=== PATIENT | male | born 1960 | race American Indian/Alaskan Native ===

== ENCOUNTER 2018-02-04 15:15 | Inpatient (IN) | payer MEDICARE, OTHER ==
[2018-02-04] MEDS ORDERED: Multivitamin (MVI) 10 ML, Folic Acid 1 MG, Thiamine 100 MG in Dextrose 5%/0.45% NS 1,00... IV ONE ×2 (15:30→15:45)
--- NOTE | 2018-02-04 15:38 | ED PDOC ---
HPI: Seizure Time Seen by Provider: 02/04/18 15:23 Chief Complaint (Nursing): Seizure Chief Complaint (Provider): seizure History Per: Patient, Family History/Exam Limitations: no limitations Additional Complaint(s): Pt. is an alcoholic and drinks everyday. Last drink 4 days ago (pt. stopped because family in the hospital). Pt. seen having seizure in the hallway of his apartment. Unclear how long it lasted. Pt. found post-ictal per ems. Pt. communicating fully when evaluated in ER. Pt. denies any pain, weakness, dizziness, headaches, neck pain, dyspnea, chest pain, arm/leg pain. Pt. does not remember seizure. Pt. has no loose teeth or tongue laceration. Pt. denies any drugs. No nausea, vomit, diarrhea. States he takes meds for his htn, but does not know what it is. Family at bedside giving further details. Past Medical History Reviewed: Nursing Documentation, Vital Signs Vital Signs: Last Vital Signs Temp 98.1 F 02/04/18 15:18 Pulse 104 H 02/04/18 15:18 Resp 18 02/04/18 15:18 BP 147/97 H 02/04/18 15:18 Pulse Ox 100 02/04/18 19:20 - Medical History PMH: HTN Other PMH: alcoholic withdrawal sz - Family History Family History: States: Unknown Family Hx - Living Arrangements Living Arrangements: Alone - Social History Current smoker - smoking cessation education provided: Yes Alcohol: > 2 Drinks/Day - Home Medications Home Medications: Ambulatory Orders Medication Instructions Recorded Albuterol Sulfate [Proair Hfa] 2 puff IH Q8 PRN 02/04/18 Ergocalciferol (Vitamin D2) 50,000 unit PO QWK 02/04/18 [Vitamin D2] Fluticasone Nasal [Flonase] 1 spray PAOLA BID PRN 02/04/18 Levocetirizine Dihydrochloride 5 mg PO Q12 02/04/18 [Xyzal] Losartan/Hydrochlorothiazide 1 tab PO DAILY 02/04/18 [Hyzaar 100-25 Tablet] Memantine [Namenda] 10 mg PO Q12 02/04/18 Metoprolol Succinate [Toprol XL] 25 mg PO DAILY 02/04/18 Rosuvastatin Calcium [Crestor] 10 mg PO DAILY 02/04/18 amLODIPine [Norvasc] 10 mg PO DAILY 02/04/18 - Allergies Allergies/Adverse Reactions: Allergies Allergy/AdvReac Type Severity Reaction Status Date / Time No Known Allergies Allergy Verified 02/04/18 15:17 Review of Systems ROS Statement: Except As Marked, All Systems Reviewed And Found Negative Neurological: Positive for: Seizures Physical Exam - Reviewed Nursing Documentation Reviewed: Yes Vital Signs Reviewed: Yes - Physical Exam Appears: Positive for: Uncomfortable Head Exam: Positive for: ATRAUMATIC, NORMAL INSPECTION, NORMOCEPHALIC Skin: Positive for: Normal Color, Warm, DRY Eye Exam: Positive for: EOMI, Normal appearance, PERRL ENT: Positive for: Normal ENT Inspection, Other (no tongue laceration) Neck: Positive for: Normal, Painless ROM Cardiovascular/Chest: Positive for: Regular Rate, Rhythm Respiratory: Positive for: CNT, Normal Breath Sounds Gastrointestinal/Abdominal: Positive for: Normal Exam, Bowel Sounds, Soft. Negative for: Tenderness Back: Positive for: Normal Inspection. Negative for: L CVA Tenderness, R CVA Tenderness Extremity: Positive for: Normal ROM. Negative for: Tenderness, Pedal Edema Neurologic/Psych: Positive for: Alert, site project manager II-XII, Oriented. Negative for: Motor/Sensory Deficits - Laboratory Results Result Diagrams: 02/04/18 17:50 02/04/18 17:50 Interpretation Of Abn Labs: 125 na, 2.9 k - ECG O2 Sat by Pulse Oximetry: 100 Pulse Ox Interpretation: Normal - Radiology X-Ray: Read By Radiologist X-Ray Interpretation: Fracture ( 5-8 ribs) - CT Scan/US ct Other Rad Studies (CT/US): Read By Radiologist Other Rad Interpretation: sinusitis - Progress ED Course And Treament: 1918: Stable. Will ct chest to r/o pneumo as pt. has rib fx. 2057: Stable. Will admit tele. Deconditioning, electrolyte abnormalities, withdrawal. Dr. Freitas aware and will admit. - Critical Care Total Time (In Min): 30 Documented Critical Care: Time excludes all time spent performint seperately billable procedures Disposition - Clinical Impression Clinical Impression: Alcohol withdrawal seizure, Electrolyte abnormality, Physical deconditioning, Sinusitis, Rib fractures - Patient ED Disposition Is Patient to be Admitted: Yes Counseled Patient/Family Regarding: Studies Performed, Diagnosis - Disposition Disposition Time: 21:14 Condition: FAIR - POA Present On Arrival: Falls Or Trauma
--- NOTE | 2018-02-04 16:45 | CT ---
PROCEDURE: CT HEAD WITHOUT CONTRAST. HISTORY: headache COMPARISON: 08/03/2015 TECHNIQUE: Axial computed tomography images were obtained through the head/brain without intravenous contrast. Radiation dose: Total exam DLP = 851 mGy-cm. This CT exam was performed using one or more of the following dose reduction techniques: Automated exposure control, adjustment of the mA and/or kV according to patient size, and/or use of iterative reconstruction technique. FINDINGS: HEMORRHAGE: No intracranial hemorrhage. BRAIN: No mass effect or edema. Prior cerebral atrophy and chronic appearing microvascular ischemic changes. -similar-appearing VENTRICLES: No hydrocephalus. Cavum septum pellucidum-developmental variant - renoted CALVARIUM: Unremarkable. PARANASAL SINUSES: Interval increased mucosal thickening ethmoidal air cells bilateral. Interval increased mucosal thickening with fluid level right larger sphenoid air cell. The prior maxillary sinus mucosal thickening is not visually included on this exam to comment on. MASTOID AIR CELLS: Right mastoid postop changes similar The left mastoid air cells are unremarkable OTHER FINDINGS: Vertebrobasilar Atherosclerotic vascular calcifications present. IMPRESSION: Interval progressive paranasal sinus inflammatory changes. Interval air-fluid level right larger sphenoid air cell compatible with acute sphenoid sinusitis here. Cerebral atrophy and other chronic changes as above are renoted and similar No interval intracranial hemorrhage or mass effect.
--- NOTE | 2018-02-04 17:06 | CT ---
PROCEDURE: CT Cervical Spine without contrast HISTORY: Neck pain COMPARISON: None available. TECHNIQUE: Axial computed tomography images were obtained of the cervical spine without the use of intravenous contrast. Coronal and sagittal reformatted images were created and reviewed. Radiation dose: Total exam DLP = 470.66 MGy-cm. This CT exam was performed using one or more of the following dose reduction techniques: Automated exposure control, adjustment of the mA and/or kV according to patient size, and/or use of iterative reconstruction technique. FINDINGS: VERTEBRAE: The vertebral bodies are maintained in height. There is no acute fracture. Normal alignment is maintained. There is mild diffuse sclerosis of the C3 through C7 vertebrae, of uncertain significance. DISCS/SPINAL CANAL/NEURAL FORAMINA: There is marked narrowing of the C3-4 through C7-T1 intervertebral disc spaces consistent with degenerative disc disease. Multiple small Schmorl's nodes are identified. PARASPINAL SOFT TISSUES: Centrilobular pulmonary emphysema noted in the lung apices. Small subpleural blebs are identified. OTHER FINDINGS: None. IMPRESSION: Multilevel degenerative disc disease. No evidence of fracture or dislocation. Mild sclerosis of the C3 through C7 vertebral bodies of uncertain significance, possibly related to the extensive degenerative disc disease. Centrilobular pulmonary emphysema noted in the lung apices.
[2018-02-04 18:02] LABS: ALB/GLOB RATIO 0.8 (1.0-2.1); ALBUMIN 3.2 g/dL (3.5-5.0); ALT/SGPT 39 U/L (21-72); AST/SGOT 51 U/L (17-59); BLOOD UREA NITROGEN 10 mg/dl (9-20); CALCIUM 8.3 mg/dL (8.4-10.2); GFR AFRICAN-AMERICAN > 60; GFR NON-AFRICAN AMERICAN > 60
[2018-02-04 18:04] LABS: BASO # 0.1 K/uL (0.0-0.2); BASO % 0.6 % (0.0-2.0); EOS # 0.1 K/uL (0.0-0.7); EOS % 0.6 % (0.0-4.0); HEMOGLOBIN 10.7 g/dL (12.0-18.0); LYMPH # 0.9 K/uL (1.0-4.3); LYMPH % 9.4 % (20.0-40.0); MEAN CELL VOLUME 89.5 fl (80.0-94.0); MEAN CORPUSCULAR HEMOGLOBIN 30.8 pg (27.0-31.0); MEAN CORPUSCULAR HGB CONC 34.4 g/dL (33.0-37.0); MEAN PLATELET VOLUME 7.6 fl (7.2-11.7); MONO # 0.4 K/uL (0.0-0.8); MONO % 4.8 % (0.0-10.0); NEUT # 7.9 K/uL (1.8-7.0); NEUT % 84.6 % (50.0-75.0); NRBC % 0.1 % (0.0-0.0); PLATELET COUNT 171 K/uL (130-400); RBC 3.49 Mil/uL (4.40-5.90); RED CELL DISTRIBUTION WIDTH 15.3 % (11.5-14.5); WHITE BLOOD COUNT 9.4 K/uL (4.8-10.8)
[2018-02-04 18:09] LABS: INR 1.1 (0.9-1.2); PARTIAL THROMBOPLASTIN TIME 27.5 Seconds (25.6-37.1); PROTHROMBIN TIME 11.9 Seconds (9.8-13.1)
--- NOTE | 2018-02-04 18:27 | RAD ---
HISTORY: fall COMPARISON: 09/27/2016 FINDINGS: LUNGS: No active pulmonary disease. PLEURA: No significant pleural effusion identified, no pneumothorax apparent. CARDIOVASCULAR: Normal. OSSEOUS STRUCTURES: Fractures right 5th through 8th ribs, age indeterminate. Productive bony change likely arising from acromion along inferior aspect. Likely posttraumatic. VISUALIZED UPPER ABDOMEN: Normal. OTHER FINDINGS: None. IMPRESSION: Fractures right 5th through 8th ribs posteriorly, age indeterminate.
[2018-02-04] MEDS ORDERED: Tmp-Smz 800 mg-160 mg DS Tab PO STA (19:14)
[2018-02-04] MEDS ORDERED: Potassium Chloride 20 mEq ER Tab PO STA (19:18)
[2018-02-04] MEDS ORDERED: Tmp-Smz 800 mg-160 mg DS Tab ONE (19:56)
[2018-02-04] MEDS ORDERED: Potassium Chloride 20 mEq ER Tab PO ONE (19:57)
[2018-02-04 20:40] LABS: VENOUS BLOOD GAS BASE EXCESS 0.8 mmol/L (0.0-2.0); VENOUS BLOOD GAS PCO2 39 mmHg (40-60); VENOUS BLOOD GAS PO2 23 mm/Hg (30-55); VENOUS BLOOD PH 7.42 (7.32-7.43)
[2018-02-04 21:27] LABS: BANDS 2 % (0-2); EOSINOPHIL 1 % (0-7); LYMPHOCYTE 10 % (20-50); MONOCYTE 4 % (0-10); NEUTROPHIL 83 % (42-75); PLATELET ESTIMATE NORMAL (NORMAL); TOTAL CELLS COUNTED 100
[2018-02-04 21:28] LABS: ANISOCYTOSIS MODERATE; HYPOCHROMIC SLIGHT; OVALOCYTES SLIGHT; POIKILOCYTOSIS SLIGHT; POLYCHROMIC SLIGHT; SMUDGE CELLS PRESENT
[2018-02-04] MEDS ORDERED: [UNRECOGNIZED DRUG - OTHER] IV ONE (21:47)
[2018-02-04] MEDS ORDERED: MAGNESIUM SULFATE IV ONE (21:47)
[2018-02-04] MEDS ORDERED: THIAMINE IV ONE (21:47)
[2018-02-04] MEDS ORDERED: FOLIC ACID IV ONE (21:47)
[2018-02-04] MEDS ORDERED: MULTIVITAMIN IV ONE (21:47)
--- NOTE | 2018-02-04 21:54 | CP.PCM.HP ---
History of Present Illness - History of Present Illness History of Present Illness: CC: seizure, EtOH abuse HPI: This is a 58 y/o male with MHx sig for EtOH abuse, HTN, and HLD who was brought in to the ER today after he was noted to be having seizures in the hallway of his apartment. Found in post-ictal state by EMS. Patient himself denies having seizures -- does not remember at all. Patient had his last drink about 4 days ago. Denies any other symptoms currently -- no CP, SOB, focal weakness. Patient denies ingestion of any other substances besides EtOH. ROS: 14 systems reviewed, negative other than HPI MHx: HTN, HLD, EtOH abuse SHx: None Allergies: NKDA Medications: As per med rec Family Hx: patient cannot provide any Social Hx: Lives in apartment with family? Heavy daily EtOH use -- 5+ drinks often daily, no tobacco Present on Admission - Present on Admission Any Indicators Present on Admission: No Past Patient History - Infectious Disease Hx of Infectious Diseases: None - Tetanus Immunizations Tetanus Immunization: Unknown - Past Medical History & Family History Past Medical History?: Yes - Past Social History Alcohol: > 2 Drinks/Day - CARDIAC Hx Hypertension: Yes - ENDOCRINE/METABOLIC Hx Endocrine Disorders: Yes Hx Diabetes Mellitus Type 2: Yes - MUSCULOSKELETAL/RHEUMATOLOGICAL Hx Falls: Yes - PSYCHIATRIC Hx Substance Use: No - SURGICAL HISTORY Hx Surgeries: Yes Other/Comment: Patient was unable to specify which surgeries he has had, but he said that he has had at least 7. - ANESTHESIA Hx Anesthesia: Yes Meds Allergies/Adverse Reactions: Allergies Allergy/AdvReac Type Severity Reaction Status Date / Time No Known Allergies Allergy Verified 02/04/18 15:17 Physical Exam - Constitutional Appears: No Acute Distress - Head Exam Head Exam: ATRAUMATIC, NORMOCEPHALIC - Eye Exam Eye Exam: EOMI, PERRL - ENT Exam ENT Exam: Mucous Membranes Dry - Respiratory Exam Respiratory Exam: Clear to Auscultation Bilateral, NORMAL BREATHING PATTERN - Cardiovascular Exam Cardiovascular Exam: REGULAR RHYTHM, +S1, +S2 - GI/Abdominal Exam GI & Abdominal Exam: Normal Bowel Sounds, Soft - Extremities Exam Extremities exam: Positive for: full ROM, normal inspection - Neurological Exam Neurological exam: Alert, CN II-XII Intact, Oriented x3 - Psychiatric Exam Psychiatric exam: Normal Affect, Normal Mood - Skin Skin Exam: Dry, Warm Results - Vital Signs Recent Vital Signs: Last Vital Signs Temp 98.1 F 02/04/18 15:18 Pulse 104 H 02/04/18 15:18 Resp 18 02/04/18 15:18 BP 147/97 H 02/04/18 15:18 Pulse Ox 100 02/04/18 21:13 - Labs Result Diagrams: 02/04/18 17:50 02/04/18 17:50 Labs: Laboratory Results - last 24 hr 02/04/18 02/04/18 02/04/18 15:43 17:50 17:50 WBC 9.4 RBC 3.49 L Hgb 10.7 L Hct 31.2 L MCV 89.5 D MCH 30.8 MCHC 34.4 RDW 15.3 H Plt Count 171 D MPV 7.6 Neut % (Auto) 84.6 H Lymph % (Auto) 9.4 L Rolette % (Auto) 4.8 Eos % (Auto) 0.6 Baso % (Auto) 0.6 Neut # (Auto) 7.9 H Lymph # (Auto) 0.9 L Rolette # (Auto) 0.4 Eos # (Auto) 0.1 Baso # (Auto) 0.1 Neutrophils % (Manual) 83 H Band Neutrophils % 2 Lymphocytes % (Manual) 10 L Monocytes % (Manual) 4 Eosinophils % (Manual) 1 Smudge Cells Present Platelet Estimate Normal Polychromasia Slight Hypochromasia (manual) Slight Poikilocytosis (manual Slight Anisocytosis (manual) Moderate Ovalocytes Slight PT INR APTT pO2 VBG pH VBG pCO2 VBG HCO3 VBG Total CO2 VBG O2 Sat (Calc) VBG Base Excess VBG Potassium Glucose Lactate FiO2 Sodium 125 L Potassium 2.9 L Chloride 94 L Carbon Dioxide 20 L Anion Gap 14 BUN 10 Creatinine 0.8 Est GFR ( Amer) > 60 Est GFR (Non-Af Amer) > 60 POC Glucose (mg/dL) 101 Random Glucose 183 H Calcium 8.3 L Phosphorus 3.3 Magnesium 1.4 L Total Bilirubin 0.8 AST 51 ALT 39 Alkaline Phosphatase 63 Troponin I < 0.0120 Total Protein 7.3 Albumin 3.2 L Globulin 4.1 H Albumin/Globulin Ratio 0.8 L Venous Blood Potassium Alcohol, Quantitative < 10 02/04/18 02/04/18 17:50 20:31 WBC RBC Hgb Hct MCV MCH MCHC RDW Plt Count MPV Neut % (Auto) Lymph % (Auto) Rolette % (Auto) Eos % (Auto) Baso % (Auto) Neut # (Auto) Lymph # (Auto) Rolette # (Auto) Eos # (Auto) Baso # (Auto) Neutrophils % (Manual) Band Neutrophils % Lymphocytes % (Manual) Monocytes % (Manual) Eosinophils % (Manual) Smudge Cells Platelet Estimate Polychromasia Hypochromasia (manual) Poikilocytosis (manual Anisocytosis (manual) Ovalocytes PT 11.9 INR 1.1 APTT 27.5 pO2 23 L VBG pH 7.42 VBG pCO2 39 L VBG HCO3 24.3 VBG Total CO2 26.5 VBG O2 Sat (Calc) 45.1 VBG Base Excess 0.8 VBG Potassium 3.6 Glucose 104 Lactate 2.1 FiO2 21.0 Sodium 121.0 L Potassium Chloride 94.0 L Carbon Dioxide Anion Gap BUN Creatinine Est GFR ( Amer) Est GFR (Non-Af Amer) POC Glucose (mg/dL) Random Glucose Calcium Phosphorus Magnesium Total Bilirubin AST ALT Alkaline Phosphatase Troponin I Total Protein Albumin Globulin Albumin/Globulin Ratio Venous Blood Potassium 3.6 Alcohol, Quantitative - EKG Data EKG Interpreted by: Myself EKG shows normal: Sinus rhythm Rate: Normal - Impressions Impression: EKG shows NSR Assessment & Plan (1) Alcohol withdrawal seizure Assessment and Plan: 58 y/o male with EtOH withdrawal seizures and hyponatremia likely 2/2 EtOH intake, possibly exacerbated by volume depletion/diuretics. 1) EtOH w/d seizures -Banana bag -Ativan 2 mg q6h PRN seizures -Will start a librium taper 2) Hyponatremia -- may be 2/2 chronic EtOH intake/poor nutrition, but maybe worsened by vol dep/diuretics -Serum and urine Osms and lytes ordered -Hydrating overnight -Repeat BMP in AM -Holding diuretics 3) Pancreas mass per CT -- will need further w/u for this likely, but can be done as outpatient 4) HTN -- cont home medications except diuretics 5) DVT PPx -- SCDs and ambulation Status: Acute (2) Volume depletion Status: Acute (3) Hyponatremia Status: Acute (4) Mass of pancreas Status: Acute (5) DVT prophylaxis Status: Acute
--- NOTE | 2018-02-04 22:16 | CT ---
EXAM: CT Chest Without Intravenous Contrast CLINICAL HISTORY: 58 years old, male; Pain; Other: FX ribs; Additional info: Seizure FX in ribs TECHNIQUE: Axial computed tomography images of the chest without intravenous contrast. All CT scans at this facility use one or more dose reduction techniques, viz.: automated exposure control; ma/kV adjustment per patient size (including targeted exams where dose is matched to indication; i.e. head); or iterative reconstruction technique. Coronal and sagittal reformatted images were created and reviewed. COMPARISON: CR - CHEST PORTABLE 2018-02-04 16:48 FINDINGS: Limitations: Lack of intravenous contrast. Lungs: Moderate centrilobular/paraseptal emphysematous changes. Minimal atelectasis/scarring. No consolidation. 0.2 cm RIGHT upper lobe nodule. Pleural space: No pneumothorax. No significant effusion. Heart: No cardiomegaly. No significant pericardial effusion. Coronary artery calcifications. Mediastinum: Mild mural thickening vs underdistention of esophagus. Bones/joints: Chronic deformity right distal clavicle. Healed left sixth; right fifth, sixth, seventh, eighth, ninth, tenth, eleventh, twelth ribs. Healing left ninth, tenth ribs. Moderate compression deformity T8 vertebral body, subacute to chronic. Mild compression deformity T10 vertebral body, chronic. Hemangioma within spine. Soft tissues: Unremarkable. Vasculature: Mild atherosclerotic disease. No aneurysm. Lymph nodes: No pathologically enlarged lymph nodes. Pancreas: 8.9 x 8.6 x 8.7 cm hypodense lesion with mildly thickened irregular wall contiguous with tail of pancreas. IMPRESSION: 1. Healing/healed rib fractures. 2. Pancreatic lesion, indeterminate. Recommend MRI. 3. Mural thickening versus underdistention of esophagus. Clinical correlation is needed. 4. Pulmonary nodule. For low-risk patients, no follow-up is necessary. For high-risk patients (smoking history or other known risk factors) an optional CT at 12 months could be performed. 5. Incidental/non-acute findings are described above.
[2018-02-04 22:55] LABS: BARBITURATES, UR NEGATIVE (NEGATIVE); BENZODIAZEPINES, UR NEGATIVE (NEGATIVE); OPIATES, UR NEGATIVE (NEGATIVE); PHENCYCLIDINE, UR NEGATIVE (NEGATIVE)
[2018-02-04] MEDS ORDERED: Albuterol HFA 90 mcg/actuation (8 g) IH PRN (23:06)
[2018-02-05 06:04] LABS: BLOOD UREA NITROGEN 8 mg/dl (9-20); CALCIUM 8.6 mg/dL (8.4-10.2); GFR AFRICAN-AMERICAN > 60; GFR NON-AFRICAN AMERICAN > 60
[2018-02-05 06:12] LABS: HEMOGLOBIN 11.3 g/dL (12.0-18.0); MEAN CELL VOLUME 90.5 fl (80.0-94.0); MEAN CORPUSCULAR HEMOGLOBIN 30.8 pg (27.0-31.0); MEAN CORPUSCULAR HGB CONC 34.1 g/dL (33.0-37.0); RBC 3.66 Mil/uL (4.40-5.90); RED CELL DISTRIBUTION WIDTH 15.9 % (11.5-14.5); WHITE BLOOD COUNT 8.5 K/uL (4.8-10.8)
--- NOTE | 2018-02-05 08:27 | CP.PCM.PN ---
Subjective - Date & Time of Evaluation Date of Evaluation: 02/05/18 Time of Evaluation: 08:27 - Subjective Subjective: pt awake, alert, oriented to person, and grossly to place and time likely still mildly lethargic from librium. according to sister, patient is usually aaox3,and sharp. no complaints at this time hd stbale nad Objective - Vital Signs/Intake and Output Vital Signs (last 24 hours): Temp Pulse Resp BP Pulse Ox 98.2 F 68 18 148/92 H 100 02/05/18 08:00 02/05/18 08:00 02/05/18 08:00 02/05/18 08:00 02/05/18 08:00 Vitals Reviewed GEN: WDWN, alert, cooperative HEENT: NCAT, PERRL, EOMI HEART: RRR, +S1S2, NO MRG LUNG: CTAB, NO WRR ABD: soft, NT, ND, No HSM, No masses EXT: normal pedal pulses, normal capillary refill NEURO: awake, alert, no focal deficits SKIN: warm, dry PSYCH: normal mood, normal affect - Medications Medications: Current Medications Albuterol (Ventolin Hfa 90 Mcg/Actuation (8 G)) 2 puff IH Q8 PRN PRN Reason: Shortness of Breath Amlodipine Besylate (Norvasc) 10 mg PO DAILY WILFREDO Atorvastatin Calcium (Lipitor) 10 mg PO DAILY WILFREDO Chlordiazepoxide (Librium) 50 mg PO Q8 WILFREDO Fluticasone Propionate (Flonase) 1 spr PAOLA BID PRN PRN Reason: Nasal congestion Loratadine (Claritin) 10 mg PO DAILY WILFREDO Lorazepam (Ativan) 2 mg IVP Q6 PRN PRN Reason: seizures Lorazepam (Ativan) 1 mg IVP Q6 PRN PRN Reason: anxiety, agitation Last Admin: 02/05/18 05:00 Dose: 1 mg Memantine (Namenda) 10 mg PO Q12 WILFREDO Metoprolol Succinate (Toprol Xl) 25 mg PO DAILY WILFREDO Ondansetron HCl (Zofran Inj) 4 mg IVP Q6 PRN PRN Reason: Nausea/Vomiting - Labs Labs: 02/05/18 04:29 02/05/18 04:29 PT 11.9 Seconds (9.8-13.1) 02/04/18 17:50 INR 1.1 (0.9-1.2) 02/04/18 17:50 APTT 27.5 Seconds (25.6-37.1) 02/04/18 17:50 Assessment and Plan - Assessment and Plan (Free Text) Plan: 58 y/o male with MHx sig for EtOH abuse, HTN, and HLD who was brought in to the ER today he was noted to be having seizures in the hallway of his apartment. Found in post-ictal state by EMS. Patient himself denies having seizures, states he just felt tired. Patient had his last drink about 4-7 days ago when his brother was admitted to the hospital in [place]. Patient denies ingestion of any other substances besides EtOH. 1) EtOH with possible withdrawal seizure - pt states he just felt tired and laid down in hallway, he denies having any seizures - Banana bag given - taper PRN Ativan to 1 mg BID PO PRN withdrawal as patient last drink was likely 5-7 days ago - discontinue librium - folic acid, thiamine, mvi daily 2) Hyponatremia -- may be 2/2 chronic EtOH intake/poor nutrition, but maybe worsened by vol dep/diuretics -Serum and urine Osms and lytes ordered -Hydrating overnight -Repeat BMP in AM -Holding diuretics 3) Pancreas mass per CT -- will need further w/u as outpatient 4) HTN -- cont home medications except diuretics 5) DVT PPx -- SCDs and ambulation
[2018-02-05] MEDS: Metoprolol Succinate 25 mg XL Tab PO SCH (08:44)
[2018-02-05 09:45] LABS: URINE BILIRUBIN NEGATIVE (NEGATIVE); URINE BLOOD NEGATIVE (NEGATIVE); URINE CLARITY CLEAR (Clear); URINE COLOR YELLOW (YELLOW); URINE GLUCOSE (UA) NEG (Normal); URINE LEUKOCYTE ESTERASE NEG Leu/uL (Negative); URINE PROTEIN NEGATIVE (NEGATIVE)
[2018-02-05] MEDS: Multivitamin With Minerals Tab PO SCH (15:21)
--- NOTE | 2018-02-05 18:35 | CARD ---
APPROVED REPORT EKG Measurement Heart [id number] <Conclusion> Sinus rhythm with premature atrial complexes Otherwise normal ECG
[2018-02-05] MEDS ORDERED: Sodium Chloride 0.9% 1,000 ML IV SCH (19:15)
[2018-02-05 19:41] LABS: BASO % 0.5 % (0.0-2.0); EOS # 0.2 K/uL (0.0-0.7); EOS % 2.1 % (0.0-4.0); HEMOGLOBIN 11.2 g/dL (12.0-18.0); LYMPH # 0.9 K/uL (1.0-4.3); LYMPH % 9.7 % (20.0-40.0); MEAN CORPUSCULAR HEMOGLOBIN 31.1 pg (27.0-31.0); MEAN CORPUSCULAR HGB CONC 34.2 g/dL (33.0-37.0); MEAN PLATELET VOLUME 7.7 fl (7.2-11.7); MONO # 0.7 K/uL (0.0-0.8); MONO % 7.7 % (0.0-10.0); NEUT # 7.1 K/uL (1.8-7.0); RBC 3.6 Mil/uL (4.40-5.90); RED CELL DISTRIBUTION WIDTH 15.6 % (11.5-14.5); WHITE BLOOD COUNT 8.9 K/uL (4.8-10.8)
--- NOTE | 2018-02-05 19:54 | PCM.RRT ---
I.Reason for LEAD PASTOR - A) Acute Change in Patient: (Select all that apply): Acute change in mental status Subjective: LEAD PASTOR Call Time: 19:03 LEAD PASTOR Arrival Time: 19:04 LEAD PASTOR Location: Telemetry 403-1 S: LEAD PASTOR was called by a RN on a 58 y/o M who had a syncope episode while having a bowel movement on a potty next to bed. Pt became lethargic and unresponsive. Nurse reported stools were dark and black. O: --Physical Exam: >GEN: Pt non-verbal, not responding to tactile stimulation. >HEENT: NC/AT, EOMI, PERRL. >Neck: good ROM. >CV: S1 and S2 present. >Lungs:CTAB >EXT: no cyanosis. No strenght b/l. LEAD PASTOR Interventions: -Pt was transferred immediately to bed. -Tactile stimulation was performed, pt began to become responsive after a few seconds. -Vitals signs: 124/74, HR 76, Sat O2 98%, 98.8 degF. -Pt became awake and responsive to word commands. -Medical records were reviewed. Hyponatremia was appreciated. -Normal Saline Solution 1 L at 150 mL/hr. -STAT CBC ordered. A/P 58 y/o M was admitted for evaluation of seizure-like episode, just had a syncopal episode most probably due to vasovagal cause. --F/U CBC for evaluation of possible blood loss. --Monitor VS, orthostatic BP. --Obervation. LEAD PASTOR ended: 19:13 LEAD PASTOR Leader: Kate Reddy-Hospitalist LEAD PASTOR Residents: Dr Velásquez PGY-2, Dr Frey PGY-1.
[2018-02-05] MEDS: Insulin Lispro (humaLOG) 100 Units/ml Inj SC SCH (21:37)
[2018-02-06 05:42] LABS: HEMOGLOBIN 11.2 g/dL (12.0-18.0); MEAN CELL VOLUME 91.6 fl (80.0-94.0); MEAN CORPUSCULAR HEMOGLOBIN 31.3 pg (27.0-31.0); MEAN CORPUSCULAR HGB CONC 34.2 g/dL (33.0-37.0); RBC 3.57 Mil/uL (4.40-5.90); RED CELL DISTRIBUTION WIDTH 15.8 % (11.5-14.5); WHITE BLOOD COUNT 9.3 K/uL (4.8-10.8)
[2018-02-06 06:31] LABS: BLOOD UREA NITROGEN 6 mg/dl (9-20); CALCIUM 8.4 mg/dL (8.4-10.2); GFR AFRICAN-AMERICAN > 60; GFR NON-AFRICAN AMERICAN > 60
[2018-02-06] MEDS: Insulin Lispro (humaLOG) 100 Units/ml Inj SC SCH ×4 (07:56→22:09)
[2018-02-06] MEDS: DiphenhydrAMINE 50 mg/ml Inj IVP SCH ×2 (08:53→17:41)
[2018-02-06] MEDS: Pantoprazole 40 mg EC Tab PO SCH (08:53)
[2018-02-06] MEDS: Multivitamin With Minerals Tab PO SCH (08:53)
[2018-02-06] MEDS: Metoprolol Succinate 25 mg XL Tab PO SCH (08:54)
[2018-02-06] MEDS ORDERED: Valproate 500 MG in Sodium Chloride 0.9% 100 ML IVPB SCH (09:00)
--- NOTE | 2018-02-06 10:00 | CP.PCM.PN ---
Subjective - Date & Time of Evaluation Date of Evaluation: 02/06/18 Time of Evaluation: 09:00 - Subjective Subjective: No fever had another episode of syncope vs seizure last night while in the bathroom denies JJ, no dizziness pt is alert, oriented follows commands denies CP no SOB no abd pain Objective - Vital Signs/Intake and Output Vital Signs (last 24 hours): Temp Pulse Resp BP Pulse Ox 97.3 F L 78 20 123/81 100 02/06/18 08:00 02/06/18 08:54 02/06/18 08:00 02/06/18 08:54 02/06/18 08:00 - Medications Medications: Current Medications Albuterol (Ventolin Hfa 90 Mcg/Actuation (8 G)) 2 puff IH Q8 PRN PRN Reason: Shortness of Breath Amlodipine Besylate (Norvasc) 10 mg PO DAILY [facility] Last Admin: 02/06/18 08:54 Dose: 10 mg Atorvastatin Calcium (Lipitor) 10 mg PO DAILY [facility] Last Admin: 02/06/18 08:53 Dose: 10 mg Chlordiazepoxide (Librium) 10 mg PO Q8 [facility] Last Admin: 02/06/18 08:53 Dose: 10 mg Diphenhydramine HCl (Benadryl) 50 mg IVP Q8 [facility] Last Admin: 02/06/18 08:53 Dose: 50 mg Fluticasone Propionate (Flonase) 1 spr PAOLA BID PRN PRN Reason: Nasal congestion Folic Acid (Folic Acid) 1 mg PO DAILY [facility] Last Admin: 02/06/18 08:54 Dose: 1 mg Sodium Chloride (Sodium Chloride 0.9%) 1,000 mls @ 150 mls/hr IV .Q6H40M [facility] Stop: 02/06/18 19:13 Last Admin: 02/05/18 19:00 Dose: 150 mls/hr Valproate Sodium 500 mg/ (Sodium Chloride) 105 mls @ 0 mls/hr IVPB Q12 [facility] PRN Reason: As Directed Insulin Human Lispro (Humalog) 0 units SC ACHS [facility] PRN Reason: Protocol Last Admin: 02/06/18 07:56 Dose: Not Given Lorazepam (Ativan) 1 mg PO BID PRN PRN Reason: withdrawal symptoms only Memantine (Namenda) 10 mg PO Q12 [facility] Last Admin: 02/06/18 08:54 Dose: 10 mg Metoprolol Succinate (Toprol Xl) 25 mg PO DAILY [facility] Last Admin: 02/06/18 08:54 Dose: 25 mg Multivitamins/Minerals (Therapeutic-M Tab) 1 tab PO DAILY [facility] Last Admin: 02/06/18 08:53 Dose: 1 tab Ondansetron HCl (Zofran Inj) 4 mg IVP Q6 PRN PRN Reason: Nausea/Vomiting Pantoprazole Sodium (Protonix Ec Tab) 40 mg PO DAILY [facility] Last Admin: 02/06/18 08:53 Dose: 40 mg Thiamine HCl (Vitamin B1 Tab) 100 mg PO DAILY [facility] Last Admin: 02/06/18 08:53 Dose: 100 mg - Labs Labs: 02/06/18 05:00 02/06/18 05:00 PT 11.9 Seconds (9.8-13.1) 02/04/18 17:50 INR 1.1 (0.9-1.2) 02/04/18 17:50 APTT 27.5 Seconds (25.6-37.1) 02/04/18 17:50 - Constitutional Appears: No Acute Distress, Unkempt, Older Than Stated Age, Chronically Ill - Head Exam Head Exam: NORMAL INSPECTION, NORMOCEPHALIC - Eye Exam Eye Exam: EOMI, Normal appearance Pupil Exam: NORMAL ACCOMODATION - ENT Exam ENT Exam: Mucous Membranes Moist, Normal External Ear Exam - Neck Exam Neck Exam: Full ROM. absent: Meningismus - Respiratory Exam Respiratory Exam: NORMAL BREATHING PATTERN. absent: Respiratory Distress - Cardiovascular Exam Cardiovascular Exam: REGULAR RHYTHM, +S1, +S2 - GI/Abdominal Exam GI & Abdominal Exam: Soft, Normal Bowel Sounds. absent: Tenderness - Extremities Exam Extremities Exam: Full ROM, Normal Capillary Refill. absent: Calf Tenderness, Pedal Edema - Back Exam Back Exam: Full ROM. absent: CVA tenderness (L), CVA tenderness (R), paraspinal tenderness, vertebral tenderness - Neurological Exam Neurological Exam: Alert, Awake, CN II-XII Intact Neuro motor strength exam: Left Upper Extremity: 5, Right Upper Extremity: 5, Left Lower Extremity: 5, Right Lower Extremity: 5 Additional comments: oriented to person and place - Psychiatric Exam Psychiatric exam: Flat Affect, Normal Mood - Skin Skin Exam: Dry, Normal Color, Warm Assessment and Plan - Assessment and Plan (Free Text) Assessment: 58 y/o male with PMHx significant for EtOH abuse, HTN, and HLD who was brought in to the ER after he was noted to be having seizures in the hallway of his apartment. Found in post-ictal state by EMS. Patient himself denies having seizures, states he just felt tired. Patient had his last drink about 5-7 days prior to admission. Patient denies ingestion of any other substances besides EtOH. In the hospital , patient had another episode of Syncope while in the bathroom last night. 1) Seizure possible EtOH withdrawal seizure - Neurology consulted - Pt started on Depakote - Ativan prn for seizure and withdrawal sxs - start Librium - folic acid, thiamine, mvi daily - CT of head: neg , CT of C spine : no fracture -EEG 2) Hyponatremia -- may be 2/2 chronic EtOH intake/poor nutrition, but maybe worsened by vol depletion/diuretics - IVF hydration -Holding diuretics 3) Pancreas mass per CT - GI consulted- discussed case with dr Bender - this may be a Pseudocyst- rec CT of abd (pancreatic protocol) 4) HTN cont Norvasc and Metoprolol d/c diuretics 5) DVT PPx -- SCDs and ambulation
--- NOTE | 2018-02-06 12:21 | CP.PCM.CON ---
<Ben Verma - Last Filed: 02/06/18 13:01> History of Present Illness - History of Present Illness History of Present Illness: PGY5 GI Fellow Consult Note Patient is a 58yo male with PMHx significant for EtOH abuse, HTN, dyslipidemia who presented to the ED after being found having a seizure in the hallway of his apartment complex. The patient himself denies seizures and states he was fatigued from significant amount of walking and fell. Per our EMR, the patient was noted to have seizure activity and was brought in for further evaluation. Patient was confused at first, suspected to be in a post-ictal state which has since resolved. Admits that he drinking 5+ beers daily for many years and his last drink was 4 days prior to admission. During admission, patient was noted to have clonic activity while on bedside commode and became less responsive. He was moved to his bed where he slowly recovered. Denies any history of seizure activity, neurologic conditions or alcohol withdrawal seizures. On initial work up, patient underwent CT chest and was noted to have a large cystic lesion in the tail of the pancreas. He denies prior knowledge of this lesion and cannot confirm/deny prior episodes of pancreatitis. Separately, patient was noted to be anemic and nursing noted dark stool. Patient denies this as well. PMHx: See HPI PSHx: Discussed with patient and denies prior history FHx: Discussed with patient and he denies any significant family history Social: Daily EtOH use, Daily tobacco use (1/2ppd), denies illicit drug use Endo: Admits to colonoscopy 2-3 years ago - unknown results 12 system ROS performed and negative except where stated. Past Patient History - Infectious Disease Hx of Infectious Diseases: None - Tetanus Immunizations Tetanus Immunization: Unknown - Past Medical History & Family History Past Medical History?: Yes - Past Social History Smoking Status: Light Smoker < 10 Cigarettes Daily - CARDIAC Hx Hypertension: Yes - ENDOCRINE/METABOLIC Hx Diabetes Mellitus Type 2: No (pt denied) - HEMATOLOGICAL/ONCOLOGICAL Hx AIDS: No Hx Human Immunodeficiency Virus (HIV): No - INTEGUMENTARY Hx Dermatological Problems: Yes - MUSCULOSKELETAL/RHEUMATOLOGICAL Hx Falls: Yes - PSYCHIATRIC Hx Substance Use: No - SURGICAL HISTORY Hx Surgeries: Yes Other/Comment: Patient was unable to specify which surgeries he has had, but he said that he has had at least 7. - ANESTHESIA Hx Anesthesia: Yes Meds Allergies/Adverse Reactions: Allergies Allergy/AdvReac Type Severity Reaction Status Date / Time No Known Allergies Allergy Verified 02/04/18 15:17 - Medications Medications: Current Medications Albuterol (Ventolin Hfa 90 Mcg/Actuation (8 G)) 2 puff IH Q8 PRN PRN Reason: Shortness of Breath Amlodipine Besylate (Norvasc) 10 mg PO DAILY [facility] Last Admin: 02/06/18 08:54 Dose: 10 mg Atorvastatin Calcium (Lipitor) 10 mg PO DAILY [facility] Last Admin: 02/06/18 08:53 Dose: 10 mg Chlordiazepoxide (Librium) 10 mg PO Q8 [facility] Last Admin: 02/06/18 08:53 Dose: 10 mg Diphenhydramine HCl (Benadryl) 50 mg IVP Q8 [facility] Last Admin: 02/06/18 08:53 Dose: 50 mg Fluticasone Propionate (Flonase) 1 spr PAOLA BID PRN PRN Reason: Nasal congestion Folic Acid (Folic Acid) 1 mg PO DAILY [facility] Last Admin: 02/06/18 08:54 Dose: 1 mg Sodium Chloride (Sodium Chloride 0.9%) 1,000 mls @ 150 mls/hr IV .Q6H40M [facility] Stop: 02/06/18 19:13 Last Admin: 02/05/18 19:00 Dose: 150 mls/hr Valproate Sodium 500 mg/ (Sodium Chloride) 105 mls @ 0 mls/hr IVPB Q12 [facility] PRN Reason: As Directed Last Admin: 02/06/18 10:26 Dose: 105 mls/hr Insulin Human Lispro (Humalog) 0 units SC ACHS [facility] PRN Reason: Protocol Last Admin: 02/06/18 07:56 Dose: Not Given Lorazepam (Ativan) 1 mg PO BID PRN PRN Reason: withdrawal symptoms only Memantine (Namenda) 10 mg PO Q12 [facility] Last Admin: 02/06/18 08:54 Dose: 10 mg Metoprolol Succinate (Toprol Xl) 25 mg PO DAILY [facility] Last Admin: 02/06/18 08:54 Dose: 25 mg Multivitamins/Minerals (Therapeutic-M Tab) 1 tab PO DAILY [facility] Last Admin: 02/06/18 08:53 Dose: 1 tab Ondansetron HCl (Zofran Inj) 4 mg IVP Q6 PRN PRN Reason: Nausea/Vomiting Pantoprazole Sodium (Protonix Ec Tab) 40 mg PO DAILY [facility] Last Admin: 02/06/18 08:53 Dose: 40 mg Thiamine HCl (Vitamin B1 Tab) 100 mg PO DAILY [facility] Last Admin: 02/06/18 08:53 Dose: 100 mg Physical Exam - Constitutional Appears: Non-toxic, No Acute Distress - Eye Exam Eye Exam: EOMI, PERRL - ENT Exam ENT Exam: Mucous Membranes Moist - Respiratory Exam Respiratory Exam: Clear to Auscultation Bilateral. absent: Rales, Rhonchi, Wheezes - Cardiovascular Exam Cardiovascular Exam: RRR, +S1, +S2 - GI/Abdominal Exam GI & Abdominal Exam: Normal Bowel Sounds, Soft. absent: Distended, Firm, Guarding, Organomegaly, Rigid, Tenderness - Rectal Exam Rectal Exam: Hemorrhoids (internal). absent: Black Stool, Bloody Stool - Extremities Exam Extremities exam: Positive for: normal inspection. Negative for: pedal edema - Neurological Exam Neurological exam: Alert, Oriented x3 - Psychiatric Exam Psychiatric exam: Normal Affect, Normal Mood - Skin Skin Exam: Dry, Warm Results - Vital Signs Recent Vital Signs: Last Vital Signs Temp 97.3 F L 02/06/18 08:00 Pulse 78 02/06/18 08:54 Resp 20 02/06/18 08:00 BP 123/81 02/06/18 08:54 Pulse Ox 100 02/06/18 08:00 - Labs Result Diagrams: 02/06/18 05:00 02/06/18 05:00 Labs: Laboratory Results - last 24 hr 02/05/18 02/05/18 02/05/18 11:18 17:26 19:25 WBC 8.9 RBC 3.60 L Hgb 11.2 L Hct 32.8 L MCV 91.0 MCH 31.1 H MCHC 34.2 RDW 15.6 H Plt Count 172 MPV 7.7 Neut % (Auto) 80.0 H Lymph % (Auto) 9.7 L [place] % (Auto) 7.7 Eos % (Auto) 2.1 Baso % (Auto) 0.5 Neut # (Auto) 7.1 H Lymph # (Auto) 0.9 L [place] # (Auto) 0.7 Eos # (Auto) 0.2 Baso # (Auto) 0.0 Sodium Potassium Chloride Carbon Dioxide Anion Gap BUN Creatinine Est GFR ( Amer) Est GFR (Non-Af Amer) POC Glucose (mg/dL) 107 97 Random Glucose Calcium Magnesium 02/05/18 02/05/18 02/06/18 19:26 20:53 05:00 WBC 9.3 RBC 3.57 L Hgb 11.2 L Hct 32.7 L MCV 91.6 MCH 31.3 H MCHC 34.2 RDW 15.8 H Plt Count 186 MPV Neut % (Auto) Lymph % (Auto) [place] % (Auto) Eos % (Auto) Baso % (Auto) Neut # (Auto) Lymph # (Auto) [place] # (Auto) Eos # (Auto) Baso # (Auto) Sodium Potassium Chloride Carbon Dioxide Anion Gap BUN Creatinine Est GFR ( Amer) Est GFR (Non-Af Amer) POC Glucose (mg/dL) 137 H 102 Random Glucose Calcium Magnesium 02/06/18 02/06/18 02/06/18 05:00 06:30 11:33 WBC RBC Hgb Hct MCV MCH MCHC RDW Plt Count MPV Neut % (Auto) Lymph % (Auto) [place] % (Auto) Eos % (Auto) Baso % (Auto) Neut # (Auto) Lymph # (Auto) [place] # (Auto) Eos # (Auto) Baso # (Auto) Sodium 130 L Potassium 3.6 Chloride 99 Carbon Dioxide 22 Anion Gap 13 BUN 6 L Creatinine 0.8 Est GFR ( Amer) > 60 Est GFR (Non-Af Amer) > 60 POC Glucose (mg/dL) 127 H 93 Random Glucose 103 Calcium 8.4 Magnesium 1.7 Assessment & Plan - Assessment and Plan (Free Text) Assessment: Patient is a 58yo male with PMHx significant for EtOH abuse, HTN, dyslipidemia who presented to the ED after being found having a seizure in the hallway of his apartment complex. -Seizure disorder - possible alcohol withdrawal seizure -Incidental finding of pancreatic tail lesion - suspect pseudocyst -Anemia -Internal hemorrhoids -EtOH abuse Plan: -Recommend dedicated pancreatic imaging with ct abdomen and pancreatic protocol -Suspect pseudocyst given appearance, history of EtOH abuse -No evidence of overt GI bleeding on rectal examination -Monitor CBC -Neurologic work up in progress -Encourage EtOH abstinence -Plan per findings on work up - Date & Time Date: 02/06/18 Time: 08:45 <Thiago Bender - Last Filed: 02/06/18 20:44> Meds - Medications Medications: Current Medications Albuterol (Ventolin Hfa 90 Mcg/Actuation (8 G)) 2 puff IH Q8 PRN PRN Reason: Shortness of Breath Amlodipine Besylate (Norvasc) 10 mg PO DAILY [facility] Last Admin: 02/06/18 08:54 Dose: 10 mg Atorvastatin Calcium (Lipitor) 10 mg PO DAILY [facility] Last Admin: 02/06/18 08:53 Dose: 10 mg Chlordiazepoxide (Librium) 10 mg PO Q8 [facility] Last Admin: 02/06/18 17:41 Dose: 10 mg Diphenhydramine HCl (Benadryl) 50 mg IVP Q8 [facility] Last Admin: 02/06/18 17:41 Dose: 50 mg Fluticasone Propionate (Flonase) 1 spr PAOLA BID PRN PRN Reason: Nasal congestion Folic Acid (Folic Acid) 1 mg PO DAILY [facility] Last Admin: 02/06/18 08:54 Dose: 1 mg Gabapentin (Neurontin) 300 mg PO TID [facility] Insulin Human Lispro (Humalog) 0 units SC ACHS [facility] PRN Reason: Protocol Last Admin: 02/06/18 17:35 Dose: Not Given Lorazepam (Ativan) 1 mg PO BID PRN PRN Reason: withdrawal symptoms only Memantine (Namenda) 10 mg PO Q12 [facility] Last Admin: 02/06/18 08:54 Dose: 10 mg Metoprolol Succinate (Toprol Xl) 25 mg PO DAILY [facility] Last Admin: 02/06/18 08:54 Dose: 25 mg Multivitamins/Minerals (Therapeutic-M Tab) 1 tab PO DAILY [facility] Last Admin: 02/06/18 08:53 Dose: 1 tab Ondansetron HCl (Zofran Inj) 4 mg IVP Q6 PRN PRN Reason: Nausea/Vomiting Pantoprazole Sodium (Protonix Ec Tab) 40 mg PO DAILY [facility] Last Admin: 02/06/18 08:53 Dose: 40 mg Thiamine HCl (Vitamin B1 Tab) 100 mg PO DAILY [facility] Last Admin: 02/06/18 08:53 Dose: 100 mg Results - Vital Signs Recent Vital Signs: Last Vital Signs Temp 97.1 F L 02/06/18 19:59 Pulse 88 02/06/18 19:59 Resp 18 02/06/18 19:59 BP 146/79 02/06/18 19:59 Pulse Ox 97 02/06/18 19:59 - Labs Result Diagrams: 02/06/18 05:00 02/06/18 05:00 Labs: Laboratory Results - last 24 hr 02/05/18 02/05/18 02/05/18 11:18 17:26 19:26 WBC RBC Hgb Hct MCV MCH MCHC RDW Plt Count Sodium Potassium Chloride Carbon Dioxide Anion Gap BUN Creatinine Est GFR ( Amer) Est GFR (Non-Af Amer) POC Glucose (mg/dL) 107 97 137 H Random Glucose Calcium Magnesium Stool Occult Blood 02/05/18 02/06/18 02/06/18 20:53 05:00 05:00 WBC 9.3 RBC 3.57 L Hgb 11.2 L Hct 32.7 L MCV 91.6 MCH 31.3 H MCHC 34.2 RDW 15.8 H Plt Count 186 Sodium 130 L Potassium 3.6 Chloride 99 Carbon Dioxide 22 Anion Gap 13 BUN 6 L Creatinine 0.8 Est GFR ( Amer) > 60 Est GFR (Non-Af Amer) > 60 POC Glucose (mg/dL) 102 Random Glucose 103 Calcium 8.4 Magnesium 1.7 Stool Occult Blood 02/06/18 02/06/18 02/06/18 06:30 10:44 11:33 WBC RBC Hgb Hct MCV MCH MCHC RDW Plt Count Sodium Potassium Chloride Carbon Dioxide Anion Gap BUN Creatinine Est GFR ( Amer) Est GFR (Non-Af Amer) POC Glucose (mg/dL) 127 H 93 Random Glucose Calcium Magnesium Stool Occult Blood Positive H Attending/Attestation - Attestation I have personally seen and examined this patient.: Yes I have fully participated in the care of the patient.: Yes I have reviewed all pertinent clinical information: Yes Notes (Text): 02/06/18 20:30 Patient seen with GI fellow on rounds this am. This is a 58 yr old male with PMHx significant for EtOH abuse, HTN, dyslipidemia who presented to the ED after being found having a seizure in the hallway of his apartment complex likely alcohol related. Incidental finding of pancreatic tail lesion with normal LFT and significant history of alcohol abuse. Patient denies past hospitalizations for pancreatitis or pseudocyst. CT with pancreatic protocol concerning for malignancy. Will discuss with poultry breeder regarding EUS- FNA. No s/s of obstruction. Tolerating solid meal diet. Continue current supportive care with alcohol cessation
--- NOTE | 2018-02-06 13:50 | CP.PCM.CON ---
History of Present Illness - History of Present Illness History of Present Illness: Mr. Lew is a 58-year-old man with HLD and alcholism, whose last drink was 5 days ago and was found in his hallway of his apartment having a generalized seizure that he does not recall. When I saw the patient at EEG, he was back to baseline. His EEG did not show any epileptiform activity. He had no complaints. Review of Systems - Review of Systems All systems: reviewed and no additional remarkable complaints except Past Patient History - Infectious Disease Hx of Infectious Diseases: None - Tetanus Immunizations Tetanus Immunization: Unknown - Past Medical History & Family History Past Medical History?: Yes - Past Social History Smoking Status: Light Smoker < 10 Cigarettes Daily - CARDIAC Hx Hypertension: Yes - ENDOCRINE/METABOLIC Hx Diabetes Mellitus Type 2: No (pt denied) - HEMATOLOGICAL/ONCOLOGICAL Hx AIDS: No Hx Human Immunodeficiency Virus (HIV): No - INTEGUMENTARY Hx Dermatological Problems: Yes - MUSCULOSKELETAL/RHEUMATOLOGICAL Hx Falls: Yes - PSYCHIATRIC Hx Substance Use: No - SURGICAL HISTORY Hx Surgeries: Yes Other/Comment: Patient was unable to specify which surgeries he has had, but he said that he has had at least 7. - ANESTHESIA Hx Anesthesia: Yes Meds Allergies/Adverse Reactions: Allergies Allergy/AdvReac Type Severity Reaction Status Date / Time No Known Allergies Allergy Verified 02/04/18 15:17 - Medications Medications: Current Medications Albuterol (Ventolin Hfa 90 Mcg/Actuation (8 G)) 2 puff IH Q8 PRN PRN Reason: Shortness of Breath Amlodipine Besylate (Norvasc) 10 mg PO DAILY [facility] Last Admin: 02/06/18 08:54 Dose: 10 mg Atorvastatin Calcium (Lipitor) 10 mg PO DAILY [facility] Last Admin: 02/06/18 08:53 Dose: 10 mg Chlordiazepoxide (Librium) 10 mg PO Q8 [facility] Last Admin: 02/06/18 08:53 Dose: 10 mg Diphenhydramine HCl (Benadryl) 50 mg IVP Q8 [facility] Last Admin: 02/06/18 08:53 Dose: 50 mg Fluticasone Propionate (Flonase) 1 spr PAOLA BID PRN PRN Reason: Nasal congestion Folic Acid (Folic Acid) 1 mg PO DAILY [facility] Last Admin: 02/06/18 08:54 Dose: 1 mg Sodium Chloride (Sodium Chloride 0.9%) 1,000 mls @ 150 mls/hr IV .Q6H40M [facility] Stop: 02/06/18 19:13 Last Admin: 02/05/18 19:00 Dose: 150 mls/hr Valproate Sodium 500 mg/ (Sodium Chloride) 105 mls @ 0 mls/hr IVPB Q12 [facility] PRN Reason: As Directed Last Admin: 02/06/18 10:26 Dose: 105 mls/hr Insulin Human Lispro (Humalog) 0 units SC ACHS [facility] PRN Reason: Protocol Last Admin: 02/06/18 07:56 Dose: Not Given Lorazepam (Ativan) 1 mg PO BID PRN PRN Reason: withdrawal symptoms only Memantine (Namenda) 10 mg PO Q12 [facility] Last Admin: 02/06/18 08:54 Dose: 10 mg Metoprolol Succinate (Toprol Xl) 25 mg PO DAILY [facility] Last Admin: 02/06/18 08:54 Dose: 25 mg Multivitamins/Minerals (Therapeutic-M Tab) 1 tab PO DAILY [facility] Last Admin: 02/06/18 08:53 Dose: 1 tab Ondansetron HCl (Zofran Inj) 4 mg IVP Q6 PRN PRN Reason: Nausea/Vomiting Pantoprazole Sodium (Protonix Ec Tab) 40 mg PO DAILY [facility] Last Admin: 02/06/18 08:53 Dose: 40 mg Thiamine HCl (Vitamin B1 Tab) 100 mg PO DAILY [facility] Last Admin: 02/06/18 08:53 Dose: 100 mg Physical Exam - Constitutional Appears: Well - Head Exam Head Exam: ATRAUMATIC, NORMAL INSPECTION, NORMOCEPHALIC - Eye Exam Eye Exam: EOMI, Normal appearance, PERRL - GI/Abdominal Exam GI & Abdominal Exam: Normal Bowel Sounds, Soft. absent: Tenderness - Rectal Exam Rectal Exam: Deferred - Back Exam Back exam: NORMAL INSPECTION - Neurological Exam Neurological exam: Alert, CN II-XII Intact, Normal Gait, Oriented x3, Reflexes Normal - Psychiatric Exam Psychiatric exam: Agitated Results - Vital Signs Recent Vital Signs: Last Vital Signs Temp 98.8 F 02/06/18 12:42 Pulse 85 02/06/18 12:42 Resp 20 02/06/18 12:42 BP 122/76 02/06/18 12:42 Pulse Ox 95 02/06/18 12:42 - Labs Result Diagrams: 02/06/18 05:00 02/06/18 05:00 Labs: Laboratory Results - last 24 hr 02/05/18 02/05/18 02/05/18 11:18 17:26 19:25 WBC 8.9 RBC 3.60 L Hgb 11.2 L Hct 32.8 L MCV 91.0 MCH 31.1 H MCHC 34.2 RDW 15.6 H Plt Count 172 MPV 7.7 Neut % (Auto) 80.0 H Lymph % (Auto) 9.7 L [place] % (Auto) 7.7 Eos % (Auto) 2.1 Baso % (Auto) 0.5 Neut # (Auto) 7.1 H Lymph # (Auto) 0.9 L [place] # (Auto) 0.7 Eos # (Auto) 0.2 Baso # (Auto) 0.0 Sodium Potassium Chloride Carbon Dioxide Anion Gap BUN Creatinine Est GFR ( Amer) Est GFR (Non-Af Amer) POC Glucose (mg/dL) 107 97 Random Glucose Calcium Magnesium 02/05/18 02/05/18 02/06/18 19:26 20:53 05:00 WBC 9.3 RBC 3.57 L Hgb 11.2 L Hct 32.7 L MCV 91.6 MCH 31.3 H MCHC 34.2 RDW 15.8 H Plt Count 186 MPV Neut % (Auto) Lymph % (Auto) [place] % (Auto) Eos % (Auto) Baso % (Auto) Neut # (Auto) Lymph # (Auto) [place] # (Auto) Eos # (Auto) Baso # (Auto) Sodium Potassium Chloride Carbon Dioxide Anion Gap BUN Creatinine Est GFR ( Amer) Est GFR (Non-Af Amer) POC Glucose (mg/dL) 137 H 102 Random Glucose Calcium Magnesium 02/06/18 02/06/18 02/06/18 05:00 06:30 11:33 WBC RBC Hgb Hct MCV MCH MCHC RDW Plt Count MPV Neut % (Auto) Lymph % (Auto) [place] % (Auto) Eos % (Auto) Baso % (Auto) Neut # (Auto) Lymph # (Auto) [place] # (Auto) Eos # (Auto) Baso # (Auto) Sodium 130 L Potassium 3.6 Chloride 99 Carbon Dioxide 22 Anion Gap 13 BUN 6 L Creatinine 0.8 Est GFR ( Amer) > 60 Est GFR (Non-Af Amer) > 60 POC Glucose (mg/dL) 127 H 93 Random Glucose 103 Calcium 8.4 Magnesium 1.7 Assessment & Plan (1) Alcohol withdrawal seizure Assessment and Plan: I recommend starting gabapentin for alcohol withdrawal seizures at 300 mg TID. Follow up with outpatient neurology. No further recommendations. Status: Acute Priority: High
[2018-02-06] MEDS ORDERED: Sodium Chloride 0.9% 100 ML ONE (13:53)
[2018-02-06] MEDS ORDERED: Iohexol 300 100 ML IJ ONE (13:53)
--- NOTE | 2018-02-06 16:24 | CT ---
PROCEDURE: CT Abdomen and Pelvis with contrast HISTORY: eval panc tail lesion COMPARISON: Upper abdomen sections from chest CT 02/04/2018. TECHNIQUE: Contrast dose: Omnipaque 300, 95 cc Radiation dose: Total exam DLP = 1028.28 mGy-cm. This CT exam was performed using one or more of the following dose reduction techniques: Automated exposure control, adjustment of the mA and/or kV according to patient size, and/or use of iterative reconstruction technique. FINDINGS: LOWER THORAX: Limited emphysematous changes are reiterated at the visualized bilateral lung bases which are otherwise grossly unremarkable. LIVER: Unremarkable. No gross lesion or ductal dilatation. GALLBLADDER AND BILE DUCTS: Unremarkable. PANCREAS: The tail the pancreas again harbors a large cyst with irregular peripheral margins measuring 8.3 x 8.6 by 8.5 cm (transverse by anteroposterior by superoinferior dimensions). No septation is identified however the wall exhibits fine nodular pattern. SPLEEN: Unremarkable. ADRENALS: Unremarkable. No mass. KIDNEYS AND URETERS: Small cyst seen related to the upper midpole left kidney with a tiny lucency is too small to characterize at the the midpole left kidney posteriorly. The right kidney is unremarkable. No obstructive uropathy once again. VASCULATURE: Unremarkable. No aortic aneurysm. BOWEL: Bowel as grossly nonfocal though mildly prominent fecal loading seen throughout the colon. The stomach is distended with retained food and air. APPENDIX: Not identified. PERITONEUM: A tiny umbilical hernia is identified containing only mesenteric fat. No ascites or free air identified throughout the abdomen and pelvis. LYMPH NODES: Unremarkable. No enlarged lymph nodes. BLADDER: Urinary bladder is quite distended but smooth and thin walled. No radiodense urolithiasis associated. REPRODUCTIVE: Enlarged prostate gland evident. BONES: Benign hemangioma is appreciated associated with the apparent L1 vertebral body. OTHER FINDINGS: None. IMPRESSION: An 8.6 cm irregular, cystic lesion is seen related to the tail of the pancreas without ascites, edema, or significant lymphadenopathy in the abdomen or pelvis. Until proven otherwise, this is considered a malignant cystic pancreatic lesion and surgical consultation is recommended.
[2018-02-07] MEDS: DiphenhydrAMINE 50 mg/ml Inj IVP SCH ×3 (00:23→16:46)
[2018-02-07] MEDS: Insulin Lispro (humaLOG) 100 Units/ml Inj SC SCH ×4 (06:42→22:49)
[2018-02-07] MEDS: Multivitamin With Minerals Tab PO SCH (08:36)
[2018-02-07] MEDS: Metoprolol Succinate 25 mg XL Tab PO SCH (08:37)
[2018-02-07] MEDS: Pantoprazole 40 mg EC Tab PO SCH (08:37)
--- NOTE | 2018-02-07 10:33 | CP.PCM.CON ---
Past Patient History - Infectious Disease Hx of Infectious Diseases: None - Tetanus Immunizations Tetanus Immunization: Unknown - Past Medical History & Family History Past Medical History?: Yes - Past Social History Smoking Status: Light Smoker < 10 Cigarettes Daily - CARDIAC Hx Hypertension: Yes - ENDOCRINE/METABOLIC Hx Diabetes Mellitus Type 2: No (pt denied) - HEMATOLOGICAL/ONCOLOGICAL Hx AIDS: No Hx Human Immunodeficiency Virus (HIV): No - INTEGUMENTARY Hx Dermatological Problems: Yes - MUSCULOSKELETAL/RHEUMATOLOGICAL Hx Falls: Yes - PSYCHIATRIC Hx Substance Use: No - SURGICAL HISTORY Hx Surgeries: Yes Other/Comment: Patient was unable to specify which surgeries he has had, but he said that he has had at least 7. - ANESTHESIA Hx Anesthesia: Yes Meds Allergies/Adverse Reactions: Allergies Allergy/AdvReac Type Severity Reaction Status Date / Time No Known Allergies Allergy Verified 02/04/18 15:17 - Medications Medications: Current Medications Albuterol (Ventolin Hfa 90 Mcg/Actuation (8 G)) 2 puff IH Q8 PRN PRN Reason: Shortness of Breath Amlodipine Besylate (Norvasc) 10 mg PO DAILY [facility] Last Admin: 02/07/18 08:37 Dose: 10 mg Atorvastatin Calcium (Lipitor) 10 mg PO DAILY [facility] Last Admin: 02/07/18 08:40 Dose: 10 mg Chlordiazepoxide (Librium) 10 mg PO Q8 [facility] Last Admin: 02/07/18 08:39 Dose: 10 mg Diphenhydramine HCl (Benadryl) 50 mg IVP Q8 [facility] Last Admin: 02/07/18 08:37 Dose: 50 mg Fluticasone Propionate (Flonase) 1 spr PAOLA BID PRN PRN Reason: Nasal congestion Folic Acid (Folic Acid) 1 mg PO DAILY [facility] Last Admin: 02/07/18 08:37 Dose: 1 mg Gabapentin (Neurontin) 300 mg PO TID [facility] Last Admin: 02/07/18 08:36 Dose: 300 mg Insulin Human Lispro (Humalog) 0 units SC ACHS [facility] PRN Reason: Protocol Last Admin: 02/07/18 06:42 Dose: Not Given Lorazepam (Ativan) 1 mg PO BID PRN PRN Reason: withdrawal symptoms only Last Admin: 02/07/18 08:41 Dose: 1 mg Memantine (Namenda) 10 mg PO Q12 [facility] Last Admin: 02/07/18 08:38 Dose: 10 mg Metoprolol Succinate (Toprol Xl) 25 mg PO DAILY [facility] Last Admin: 02/07/18 08:37 Dose: 25 mg Multivitamins/Minerals (Therapeutic-M Tab) 1 tab PO DAILY [facility] Last Admin: 02/07/18 08:36 Dose: 1 tab Ondansetron HCl (Zofran Inj) 4 mg IVP Q6 PRN PRN Reason: Nausea/Vomiting Pantoprazole Sodium (Protonix Ec Tab) 40 mg PO DAILY [facility] Last Admin: 02/07/18 08:37 Dose: 40 mg Thiamine HCl (Vitamin B1 Tab) 100 mg PO DAILY [facility] Last Admin: 02/07/18 08:40 Dose: 100 mg Results - Vital Signs Recent Vital Signs: Last Vital Signs Temp 97.5 F L 02/07/18 08:32 Pulse 71 02/07/18 08:37 Resp 20 02/07/18 08:32 BP 123/80 02/07/18 08:37 Pulse Ox 97 02/07/18 08:32 - Labs Result Diagrams: 02/06/18 05:00 02/06/18 05:00 Labs: Laboratory Results - last 24 hr 02/05/18 02/06/18 02/06/18 11:18 10:44 11:33 POC Glucose (mg/dL) 107 93 Stool Occult Blood Positive H 02/06/18 02/06/18 02/07/18 15:40 21:16 06:24 POC Glucose (mg/dL) 120 H 154 H 111 H Stool Occult Blood
--- NOTE | 2018-02-07 10:39 | CP.PCM.PN ---
<Mele Avila - Last Filed: 02/07/18 10:41> Subjective - Date & Time of Evaluation Date of Evaluation: 02/07/18 Time of Evaluation: 08:00 - Subjective Subjective: PGY4 GI Follow-up Pt seen and examined bedside denied any abd pain no overnight events CT reviewed ROS: 10 point ROS conducted, neg other than above Objective - Vital Signs/Intake and Output Vital Signs (last 24 hours): Temp Pulse Resp BP Pulse Ox 97.5 F L 71 20 123/80 97 02/07/18 08:32 02/07/18 08:37 02/07/18 08:32 02/07/18 08:37 02/07/18 08:32 - Medications Medications: Current Medications Albuterol (Ventolin Hfa 90 Mcg/Actuation (8 G)) 2 puff IH Q8 PRN PRN Reason: Shortness of Breath Amlodipine Besylate (Norvasc) 10 mg PO DAILY [facility] Last Admin: 02/07/18 08:37 Dose: 10 mg Atorvastatin Calcium (Lipitor) 10 mg PO DAILY [facility] Last Admin: 02/07/18 08:40 Dose: 10 mg Chlordiazepoxide (Librium) 10 mg PO Q8 [facility] Last Admin: 02/07/18 08:39 Dose: 10 mg Diphenhydramine HCl (Benadryl) 50 mg IVP Q8 [facility] Last Admin: 02/07/18 08:37 Dose: 50 mg Fluticasone Propionate (Flonase) 1 spr PAOLA BID PRN PRN Reason: Nasal congestion Folic Acid (Folic Acid) 1 mg PO DAILY [facility] Last Admin: 02/07/18 08:37 Dose: 1 mg Gabapentin (Neurontin) 300 mg PO TID [facility] Last Admin: 02/07/18 08:36 Dose: 300 mg Insulin Human Lispro (Humalog) 0 units SC ACHS [facility] PRN Reason: Protocol Last Admin: 02/07/18 06:42 Dose: Not Given Lorazepam (Ativan) 1 mg PO BID PRN PRN Reason: withdrawal symptoms only Last Admin: 02/07/18 08:41 Dose: 1 mg Memantine (Namenda) 10 mg PO Q12 [facility] Last Admin: 02/07/18 08:38 Dose: 10 mg Metoprolol Succinate (Toprol Xl) 25 mg PO DAILY [facility] Last Admin: 02/07/18 08:37 Dose: 25 mg Multivitamins/Minerals (Therapeutic-M Tab) 1 tab PO DAILY [facility] Last Admin: 02/07/18 08:36 Dose: 1 tab Ondansetron HCl (Zofran Inj) 4 mg IVP Q6 PRN PRN Reason: Nausea/Vomiting Pantoprazole Sodium (Protonix Ec Tab) 40 mg PO DAILY [facility] Last Admin: 02/07/18 08:37 Dose: 40 mg Thiamine HCl (Vitamin B1 Tab) 100 mg PO DAILY [facility] Last Admin: 02/07/18 08:40 Dose: 100 mg - Labs Labs: 02/06/18 05:00 02/06/18 05:00 PT 11.9 Seconds (9.8-13.1) 02/04/18 17:50 INR 1.1 (0.9-1.2) 02/04/18 17:50 APTT 27.5 Seconds (25.6-37.1) 02/04/18 17:50 - Constitutional Appears: Well, No Acute Distress - Head Exam Head Exam: ATRAUMATIC, NORMOCEPHALIC - Eye Exam Eye Exam: Normal appearance. absent: Scleral icterus - ENT Exam ENT Exam: Mucous Membranes Moist, Normal Exam - Neck Exam Neck Exam: Normal Inspection - Respiratory Exam Respiratory Exam: Clear to Ausculation Bilateral, NORMAL BREATHING PATTERN. absent: Rales, Rhonchi, Wheezes, Respiratory Distress - Cardiovascular Exam Cardiovascular Exam: REGULAR RHYTHM, +S1, +S2 - GI/Abdominal Exam GI & Abdominal Exam: Soft, Normal Bowel Sounds. absent: Guarding, Rigid, Tenderness - Extremities Exam Extremities Exam: absent: Joint Swelling, Pedal Edema - Neurological Exam Neurological Exam: Alert, Awake, Oriented x3 - Psychiatric Exam Psychiatric exam: Normal Affect, Normal Mood - Skin Skin Exam: Dry, Intact, Normal Color, Warm Assessment and Plan - Assessment and Plan (Free Text) Assessment: Patient is a 58yo male with PMHx significant for EtOH abuse, HTN, dyslipidemia who presented to the ED after being found having a seizure in the hallway of his apartment complex. -Seizure disorder - possible alcohol withdrawal seizure -Pancreatic cyst; etiology unknown; ddx: psuedocyst, mucinus -Anemia -Internal hemorrhoids -EtOH abuse Plan: -CT Pancreas, revealed cytic tail lesion with nodularities -pt is aymptomatic -Suspect pseudocyst given appearance, history of EtOH abuse -No evidence of overt GI bleeding on rectal examination -recommend outpt EUS/FNA -emphasized the importance t r/o malignancy or pre-malignant lesion -Encourage EtOH abstinence -will sign off D/W Dr. Short <Akin Short - Last Filed: 02/07/18 11:13> Objective - Vital Signs/Intake and Output Vital Signs (last 24 hours): Temp Pulse Resp BP Pulse Ox 97.5 F L 71 20 123/80 97 02/07/18 08:32 02/07/18 08:37 02/07/18 08:32 02/07/18 08:37 02/07/18 08:32 - Medications Medications: Current Medications Albuterol (Ventolin Hfa 90 Mcg/Actuation (8 G)) 2 puff IH Q8 PRN PRN Reason: Shortness of Breath Amlodipine Besylate (Norvasc) 10 mg PO DAILY [facility] Last Admin: 02/07/18 08:37 Dose: 10 mg Atorvastatin Calcium (Lipitor) 10 mg PO DAILY [facility] Last Admin: 02/07/18 08:40 Dose: 10 mg Chlordiazepoxide (Librium) 10 mg PO Q8 [facility] Last Admin: 02/07/18 08:39 Dose: 10 mg Diphenhydramine HCl (Benadryl) 50 mg IVP Q8 [facility] Last Admin: 02/07/18 08:37 Dose: 50 mg Fluticasone Propionate (Flonase) 1 spr PAOLA BID PRN PRN Reason: Nasal congestion Folic Acid (Folic Acid) 1 mg PO DAILY [facility] Last Admin: 02/07/18 08:37 Dose: 1 mg Gabapentin (Neurontin) 300 mg PO TID [facility] Last Admin: 02/07/18 08:36 Dose: 300 mg Insulin Human Lispro (Humalog) 0 units SC ACHS [facility] PRN Reason: Protocol Last Admin: 02/07/18 06:42 Dose: Not Given Lorazepam (Ativan) 1 mg PO BID PRN PRN Reason: withdrawal symptoms only Last Admin: 02/07/18 08:41 Dose: 1 mg Memantine (Namenda) 10 mg PO Q12 [facility] Last Admin: 02/07/18 08:38 Dose: 10 mg Metoprolol Succinate (Toprol Xl) 25 mg PO DAILY [facility] Last Admin: 02/07/18 08:37 Dose: 25 mg Multivitamins/Minerals (Therapeutic-M Tab) 1 tab PO DAILY [facility] Last Admin: 02/07/18 08:36 Dose: 1 tab Ondansetron HCl (Zofran Inj) 4 mg IVP Q6 PRN PRN Reason: Nausea/Vomiting Pantoprazole Sodium (Protonix Ec Tab) 40 mg PO DAILY [facility] Last Admin: 02/07/18 08:37 Dose: 40 mg Thiamine HCl (Vitamin B1 Tab) 100 mg PO DAILY [facility] Last Admin: 02/07/18 08:40 Dose: 100 mg - Labs Labs: 02/06/18 05:00 02/06/18 05:00 PT 11.9 Seconds (9.8-13.1) 02/04/18 17:50 INR 1.1 (0.9-1.2) 02/04/18 17:50 APTT 27.5 Seconds (25.6-37.1) 02/04/18 17:50 Attending/Attestation - Attestation I have personally seen and examined this patient.: Yes I have fully participated in the care of the patient.: Yes I have reviewed all pertinent clinical information, including history, physical exam and plan: Yes Notes (Text): 02/07/18 11:13 58 year old male with h/o etoh abuse found to have large pancreatic tail cyst. DDx includes pseudocyst, MCN, serous cystadenoma. Recommend outpatient EUS with FNA. Patient asymptomatic. Will sign off.
[2018-02-07 11:57] LABS: MEAN CELL VOLUME 90.6 fl (80.0-94.0); MEAN CORPUSCULAR HEMOGLOBIN 31.3 pg (27.0-31.0); MEAN CORPUSCULAR HGB CONC 34.5 g/dL (33.0-37.0); RBC 3.52 Mil/uL (4.40-5.90); RED CELL DISTRIBUTION WIDTH 16.2 % (11.5-14.5); WHITE BLOOD COUNT 8.6 K/uL (4.8-10.8)
--- NOTE | 2018-02-07 12:28 | CP.PCM.PN ---
Subjective - Date & Time of Evaluation Date of Evaluation: 02/07/18 Time of Evaluation: 11:45 - Subjective Subjective: Pt was confused overnight accdg to staff - was given Ativan and Haldol this am, was confused and urinated on the floor At present pt is lethargic though arousable with verbal stimuli denies JJ no CP no abd pain Objective - Vital Signs/Intake and Output Vital Signs (last 24 hours): Temp Pulse Resp BP Pulse Ox 97.5 F L 71 20 123/80 97 02/07/18 08:32 02/07/18 08:37 02/07/18 08:32 02/07/18 08:37 02/07/18 08:32 - Medications Medications: Current Medications Albuterol (Ventolin Hfa 90 Mcg/Actuation (8 G)) 2 puff IH Q8 PRN PRN Reason: Shortness of Breath Amlodipine Besylate (Norvasc) 10 mg PO DAILY [facility] Last Admin: 02/07/18 08:37 Dose: 10 mg Atorvastatin Calcium (Lipitor) 10 mg PO DAILY [facility] Last Admin: 02/07/18 08:40 Dose: 10 mg Chlordiazepoxide (Librium) 10 mg PO Q8 [facility] Last Admin: 02/07/18 08:39 Dose: 10 mg Diphenhydramine HCl (Benadryl) 50 mg IVP Q8 [facility] Last Admin: 02/07/18 08:37 Dose: 50 mg Fluticasone Propionate (Flonase) 1 spr PAOLA BID PRN PRN Reason: Nasal congestion Folic Acid (Folic Acid) 1 mg PO DAILY [facility] Last Admin: 02/07/18 08:37 Dose: 1 mg Gabapentin (Neurontin) 300 mg PO TID [facility] Last Admin: 02/07/18 08:36 Dose: 300 mg Insulin Human Lispro (Humalog) 0 units SC ACHS [facility] PRN Reason: Protocol Last Admin: 02/07/18 06:42 Dose: Not Given Lorazepam (Ativan) 1 mg PO BID PRN PRN Reason: withdrawal symptoms only Last Admin: 02/07/18 08:41 Dose: 1 mg Memantine (Namenda) 10 mg PO Q12 [facility] Last Admin: 02/07/18 08:38 Dose: 10 mg Metoprolol Succinate (Toprol Xl) 25 mg PO DAILY [facility] Last Admin: 03/31/18 08:37 Dose: 25 mg Multivitamins/Minerals (Therapeutic-M Tab) 1 tab PO DAILY [facility] Last Admin: 02/07/18 08:36 Dose: 1 tab Ondansetron HCl (Zofran Inj) 4 mg IVP Q6 PRN PRN Reason: Nausea/Vomiting Pantoprazole Sodium (Protonix Ec Tab) 40 mg PO DAILY [facility] Last Admin: 02/07/18 08:37 Dose: 40 mg Thiamine HCl (Vitamin B1 Tab) 100 mg PO DAILY [facility] Last Admin: 02/07/18 08:40 Dose: 100 mg - Labs Labs: 02/07/18 09:14 02/06/18 05:00 PT 11.9 Seconds (9.8-13.1) 02/04/18 17:50 INR 1.1 (0.9-1.2) 02/04/18 17:50 APTT 27.5 Seconds (25.6-37.1) 02/04/18 17:50 - Constitutional Appears: No Acute Distress, Unkempt, Older Than Stated Age, Chronically Ill - Head Exam Head Exam: NORMAL INSPECTION, NORMOCEPHALIC - Eye Exam Eye Exam: EOMI, Normal appearance Pupil Exam: NORMAL ACCOMODATION - ENT Exam ENT Exam: Mucous Membranes Moist, Normal External Ear Exam - Neck Exam Neck Exam: Full ROM. absent: Meningismus - Respiratory Exam Respiratory Exam: NORMAL BREATHING PATTERN. absent: Respiratory Distress - Cardiovascular Exam Cardiovascular Exam: REGULAR RHYTHM, +S1, +S2 - GI/Abdominal Exam GI & Abdominal Exam: Soft, Normal Bowel Sounds. absent: Tenderness - Extremities Exam Extremities Exam: Full ROM, Normal Capillary Refill. absent: Calf Tenderness, Pedal Edema - Back Exam Back Exam: Full ROM. absent: CVA tenderness (L), CVA tenderness (R), paraspinal tenderness, vertebral tenderness - Neurological Exam Neurological Exam: lethargic, opens eyes to verbal stimuli Neuro motor strength exam: Left Upper Extremity: 5, Right Upper Extremity: 5, Left Lower Extremity: 5, Right Lower Extremity: 5 Additional comments: oriented to person and place - Psychiatric Exam Psychiatric exam: Flat Affect - Skin Skin Exam: Dry, Normal Color, Warm Assessment and Plan - Assessment and Plan (Free Text) Assessment: 58 y/o male with PMHx significant for EtOH abuse, HTN, and HLD who was brought in to the ER after he was noted to be having seizures in the hallway of his apartment. Found in post-ictal state by EMS. Patient himself denies having seizures, states he just felt tired. Patient had his last drink about 5-7 days prior to admission. Patient denies ingestion of any other substances besides EtOH. In the hospital , patient had another episode of Syncope while in the bathroom 1) Seizure possible EtOH withdrawal seizure - - Neurology consulted - Pt started on Depakote - Ativan prn for seizure and withdrawal sxs - taper Librium - folic acid, thiamine, mvi daily - CT of head: neg , CT of C spine : no fracture -EEG: neg - today pt is confused - ? ETOH withdrawal- will continue to monitor in the hospital - Physical therapy consult 2) Hyponatremia -- may be 2/2 chronic EtOH intake/poor nutrition, but maybe worsened by vol depletion/diuretics - IVF hydration -Holding diuretics 3) Pancreas mass per CT - GI consulted- rec CTPancreatic protocol CT of Pancreas: 8.6 cm irregular, cystic lesion is seen related to the tail of the pancreas without ascites, edema, or significant lymphadenopathy in the abdomen or pelvis. Until proven otherwise, this is considered a malignant cystic pancreatic lesion and surgical consultation is recommended. -accdg to GI - mass may be a Pseudocyst- recommended outpatient EUS 4) HTN cont Norvasc and Metoprolol d/c diuretics 5) DVT PPx -- SCDs and Lovenox
[2018-02-07] MEDS: Enoxaparin 40 mg Syringe SC SCH (16:47)
[2018-02-08] MEDS: DiphenhydrAMINE 50 mg/ml Inj IVP SCH (01:28)
[2018-02-08 08:01] LABS: BASO % 0.2 % (0.0-2.0); EOS # 0.3 K/uL (0.0-0.7); EOS % 3.2 % (0.0-4.0); HEMOGLOBIN 12.6 g/dL (12.0-18.0); LYMPH # 1.1 K/uL (1.0-4.3); LYMPH % 12.4 % (20.0-40.0); MEAN CELL VOLUME 92.5 fl (80.0-94.0); MEAN CORPUSCULAR HEMOGLOBIN 30.8 pg (27.0-31.0); MEAN CORPUSCULAR HGB CONC 33.3 g/dL (33.0-37.0); MEAN PLATELET VOLUME 7.9 fl (7.2-11.7); MONO # 0.9 K/uL (0.0-0.8); MONO % 9.6 % (0.0-10.0); NEUT # 6.8 K/uL (1.8-7.0); NEUT % 74.6 % (50.0-75.0); NRBC % 0.1 % (0.0-0.0); RBC 4.08 Mil/uL (4.40-5.90); RED CELL DISTRIBUTION WIDTH 16.3 % (11.5-14.5); WHITE BLOOD COUNT 9.1 K/uL (4.8-10.8)
[2018-02-08 08:33] LABS: ALB/GLOB RATIO 0.8 (1.0-2.1); ALBUMIN 3.6 g/dL (3.5-5.0); ALT/SGPT 39 U/L (21-72); AST/SGOT 49 U/L (17-59); BLOOD UREA NITROGEN 9 mg/dl (9-20); CALCIUM 9.2 mg/dL (8.4-10.2); GFR AFRICAN-AMERICAN > 60; GFR NON-AFRICAN AMERICAN > 60
[2018-02-08] MEDS: Insulin Lispro (humaLOG) 100 Units/ml Inj SC SCH ×4 (10:00→22:06)
[2018-02-08] MEDS: Metoprolol Succinate 25 mg XL Tab PO SCH (10:01)
[2018-02-08] MEDS: Multivitamin With Minerals Tab PO SCH (10:01)
[2018-02-08] MEDS: Pantoprazole 40 mg EC Tab PO SCH (10:02)
[2018-02-08] MEDS: Enoxaparin 40 mg Syringe SC SCH (10:03)
--- NOTE | 2018-02-08 15:45 | CP.PCM.DIS ---
Provider - Provider Date of Admission: 02/04/18 21:11 Attending physician: Dalia Freitas MD Consults: Dr. Bender- gastroenterology Dr. Espinoza- neurology Time Spent in preparation of Discharge (in minutes): 25 Hospital Course - Lab Results Lab Results: Micro Results 02/04/18 20:30 Blood Blood Culture - Preliminary NO GROWTH AFTER 3 DAYS 02/04/18 20:30 Blood Blood Culture - Preliminary NO GROWTH AFTER 3 DAYS Most Recent Lab Values WBC 9.1 K/uL (4.8-10.8) 02/08/18 06:34 RBC 4.08 Mil/uL (4.40-5.90) L 02/08/18 06:34 Hgb 12.6 g/dL (12.0-18.0) 02/08/18 06:34 Hct 37.7 % (35.0-51.0) 02/08/18 06:34 MCV 92.5 fl (80.0-94.0) 02/08/18 06:34 MCH 30.8 pg (27.0-31.0) 02/08/18 06:34 MCHC 33.3 g/dL (33.0-37.0) 02/08/18 06:34 RDW 16.3 % (11.5-14.5) H 02/08/18 06:34 Plt Count 274 K/uL (130-400) 02/08/18 06:34 MPV 7.9 fl (7.2-11.7) 02/08/18 06:34 Neut % (Auto) 74.6 % (50.0-75.0) 02/08/18 06:34 Lymph % (Auto) 12.4 % (20.0-40.0) L 02/08/18 06:34 Collier % (Auto) 9.6 % (0.0-10.0) 02/08/18 06:34 Eos % (Auto) 3.2 % (0.0-4.0) 02/08/18 06:34 Baso % (Auto) 0.2 % (0.0-2.0) 02/08/18 06:34 Neut # (Auto) 6.8 K/uL (1.8-7.0) 02/08/18 06:34 Lymph # (Auto) 1.1 K/uL (1.0-4.3) 02/08/18 06:34 Collier # (Auto) 0.9 K/uL (0.0-0.8) H 02/08/18 06:34 Eos # (Auto) 0.3 K/uL (0.0-0.7) 02/08/18 06:34 Baso # (Auto) 0.0 K/uL (0.0-0.2) 02/08/18 06:34 Neutrophils % (Manual) 83 % (42-75) H 02/04/18 17:50 Band Neutrophils % 2 % (0-2) 02/04/18 17:50 Lymphocytes % (Manual) 10 % (20-50) L 02/04/18 17:50 Monocytes % (Manual) 4 % (0-10) 02/04/18 17:50 Eosinophils % (Manual) 1 % (0-7) 02/04/18 17:50 Smudge Cells Present 02/04/18 17:50 Platelet Estimate Normal (NORMAL) 02/04/18 17:50 Polychromasia Slight 02/04/18 17:50 Hypochromasia (manual) Slight 02/04/18 17:50 Poikilocytosis (manual Slight 02/04/18 17:50 Anisocytosis (manual) Moderate 02/04/18 17:50 Ovalocytes Slight 02/04/18 17:50 PT 11.9 Seconds (9.8-13.1) 02/04/18 17:50 INR 1.1 (0.9-1.2) 02/04/18 17:50 APTT 27.5 Seconds (25.6-37.1) 02/04/18 17:50 pO2 23 mm/Hg (30-55) L 02/04/18 20:31 VBG pH 7.42 (7.32-7.43) 02/04/18 20:31 VBG pCO2 39 mmHg (40-60) L 02/04/18 20:31 VBG HCO3 24.3 mmol/L 02/04/18 20:31 VBG Total CO2 26.5 mmol/L (22-28) 02/04/18 20:31 VBG O2 Sat (Calc) 45.1 % (40-65) 02/04/18 20:31 VBG Base Excess 0.8 mmol/L (0.0-2.0) 02/04/18 20:31 VBG Potassium 3.6 mmol/L (3.6-5.2) 02/04/18 20:31 Sodium 121.0 mmol/L (132-148) L 02/04/18 20:31 Chloride 94.0 mmol/L (98-107) L 02/04/18 20:31 Glucose 104 mg/dL (75-110) 02/04/18 20:31 Lactate 2.1 mmol/L (0.7-2.1) 02/04/18 20:31 FiO2 21.0 % 02/04/18 20:31 Sodium 136 mmol/l (132-148) 02/08/18 06:34 Potassium 4.9 MMOL/L (3.6-5.0) 02/08/18 06:34 Chloride 100 mmol/L (98-107) 02/08/18 06:34 Carbon Dioxide 23 mmol/L (22-30) 02/08/18 06:34 Anion Gap 18 (10-20) 02/08/18 06:34 BUN 9 mg/dl (9-20) 02/08/18 06:34 Creatinine 0.7 mg/dl (0.8-1.5) L 02/08/18 06:34 Est GFR ( Amer) > 60 02/08/18 06:34 Est GFR (Non-Af Amer) > 60 02/08/18 06:34 POC Glucose (mg/dL) 174 mg/dL (65-110) H 02/08/18 11:09 Random Glucose 117 mg/dL (75-110) H 02/08/18 06:34 Calcium 9.2 mg/dL (8.4-10.2) 02/08/18 06:34 Phosphorus 3.3 mg/dl (2.5-4.5) 02/04/18 17:50 Magnesium 1.7 MG/DL (1.6-2.3) 02/06/18 05:00 Total Bilirubin 0.6 mg/dl (0.2-1.3) 02/08/18 06:34 AST 49 U/L (17-59) 02/08/18 06:34 ALT 39 U/L (21-72) 02/08/18 06:34 Alkaline Phosphatase 62 U/L (38-126) 02/08/18 06:34 Troponin I < 0.0120 ng/mL (0.00-0.120) 02/04/18 17:50 Total Protein 7.9 G/DL (6.3-8.2) 02/08/18 06:34 Albumin 3.6 g/dL (3.5-5.0) 02/08/18 06:34 Globulin 4.4 gm/dL (2.2-3.9) H 02/08/18 06:34 Albumin/Globulin Ratio 0.8 (1.0-2.1) L 02/08/18 06:34 Venous Blood Potassium 3.6 mmol/L (3.6-5.2) 02/04/18 20:31 Urine Color Yellow (YELLOW) 02/05/18 05:14 Urine Clarity Clear (Clear) 02/05/18 05:14 Urine pH 7.0 (5.0-8.0) 02/05/18 05:14 Ur Specific Onida 1.010 (1.003-1.030) 02/05/18 05:14 Urine Protein Negative mg/dL (NEGATIVE) 02/05/18 05:14 Urine Glucose (UA) Neg mg/dL (Normal) 02/05/18 05:14 Urine Ketones Negative mg/dL (NEGATIVE) 02/05/18 05:14 Urine Blood Negative (NEGATIVE) 02/05/18 05:14 Urine Nitrate Negative (NEGATIVE) 02/05/18 05:14 Urine Bilirubin Negative (NEGATIVE) 02/05/18 05:14 Urine Urobilinogen 4.0 mg/dL (0.2-1.0) 02/05/18 05:14 Ur Leukocyte Esterase Neg Tia/uL (Negative) 02/05/18 05:14 Urine RBC (Auto) 2 /hpf (0-3) 02/05/18 05:14 Urine Microscopic WBC < 1 /hpf (0-5) 02/05/18 05:14 Ur Random Sodium 84 meq/L 02/05/18 09:30 Ur Random Potassium 26.9 mmol/L 02/05/18 09:30 Stool Occult Blood Positive (NEGATIVE) H 02/06/18 10:44 Urine Opiates Screen Negative (NEGATIVE) 02/04/18 22:21 Urine Methadone Screen Negative (NEGATIVE) 02/04/18 22:21 Ur Barbiturates Screen Negative (NEGATIVE) 02/04/18 22:21 Ur Phencyclidine Scrn Negative (NEGATIVE) 02/04/18 22:21 Ur Amphetamines Screen Negative (NEGATIVE) 02/04/18 22:21 U Benzodiazepines Scrn Negative (NEGATIVE) 02/04/18 22:21 U Oth Cocaine Metabols Negative (NEGATIVE) 02/04/18 22:21 U Cannabinoids Screen Negative (NEGATIVE) 02/04/18 22:21 Alcohol, Quantitative < 10 mg/dl (0-10) 02/04/18 17:50 - Hospital Course Hospital Course: 58 y/o male with PMHx significant for EtOH abuse, HTN, and HLD who was brought in to the ER after he was noted to be having seizures in the hallway of his apartment. Found in post-ictal state by EMS. Patient himself denies having seizures, states he just felt tired. Patient had his last drink about 5-7 days prior to admission. Patient denies ingestion of any other substances besides EtOH. In the hospital , patient had another episode of Syncope while in the bathroom and afterwards was brought to the ED where it was thought his seizure was most likely due to ETOH withdrawal. Neurology was consulted and started the patient on Depakote initially and was then switched to Gabapentin. PMD Torey Butts 1) Seizure possible EtOH withdrawal seizure, no further seizure episodes witnessed inpt. - Neurology consulted, Dr. Espinoza - Pt started on Gabapentin which will be continued outpatient - Ativan prn for seizure and withdrawal sxs - Patient must completely abstain from ETOH which was explained. - Librium 4 days outpt - folic acid, thiamine, mvi was recieved daily. Was discharged with PO of the same - CT of head: neg , CT of C spine : no fracture -EEG: neg - Patient's confusion improved- may be attributed to Benadryl which was discontinued. Patient coherent and can be discharged today. 2) Hyponatremia -- may be 2/2 chronic EtOH intake/poor nutrition, but maybe worsened by vol depletion/diuretics - IVF hydration while in house -Holding diuretics 3) Pancreas mass per CT - GI consulted- rec CTPancreatic protocol CT of Pancreas: 8.6 cm irregular, cystic lesion is seen related to the tail of the pancreas without ascites, edema, or significant lymphadenopathy in the abdomen or pelvis. Until proven otherwise, this is considered a malignant cystic pancreatic lesion and surgical consultation is recommended. -according to GI- mass may be a Pseudocyst- recommended outpatient EUS - Referral for patient to follow up with Dr. Bender given as patient should follow up at [place] for endoscopic ultrasound with fine needle aspiration as there is concern for possible malignancy. 4) HTN cont Norvasc and Metoprolol outpt d/c diuretics 5) DVT PPx -- SCDs and Lovenox during admission Discharge Exam - Additional Findings Additional findings: Physical exam: Constitutional- cooperative, awake, alert and oriented x 3, although intermittent periods of confusion. Head- NCAT, PERRL Eye- PERRL, EOMI ENT- normal exam, MMM. Neck- normal inspection, supple, no JVD Respiratory- CTAB, no wheezes rales rhonchi Cardiovascular- RRR, +S1, +S2 no MRG GI/Abdominal- normal bowel sounds, soft, no mass, no hsm Skin- warm, dry Extremities Exam- normal capillary refill, normal inspection Neurological Exam- alert, awake, oriented + unsteady gait when assess with physical therapy Psych- normal mood, normal affect Discharge Plan - Discharge Medications Prescriptions: chlordiazePOXIDE [Librium] 10 mg PO Q12 #8 cap Folic Acid 1 mg PO DAILY #30 tab Gabapentin [Neurontin] 300 mg PO TID #90 cap Thiamine [Vitamin B1 Tab] 100 mg PO DAILY #30 tab - Follow Up Plan Condition: FAIR Disposition: HOME/ ROUTINE Instructions: Hyponatremia (DC) Additional Instructions: EUS as outpt rpt CT of chest in 12 months Referrals: Thiago Bender MD [Medical Doctor] - Pual Espinoza MD [Medical Doctor] -
--- NOTE | 2018-02-08 16:03 | CP.PCM.PN ---
Subjective - Date & Time of Evaluation Date of Evaluation: 02/08/18 Time of Evaluation: 09:00 - Subjective Subjective: Patient is awake, alert and oriented today, but has intermittent periods of confusion. Physical therapy examined patient; his gait is very unsteady even with a walker and he is not safe for discharge at this time as a result. Denies headache, cp, sob, abdominal pain. Wants to go home but is agreeing to stay at least until tomorrow for further PT assessment Objective - Vital Signs/Intake and Output Vital Signs (last 24 hours): Temp Pulse Resp BP Pulse Ox 97.1 F L 117 H 20 121/74 100 02/08/18 13:24 02/08/18 13:24 02/08/18 13:24 02/08/18 13:24 02/08/18 13:24 - Medications Medications: Current Medications Albuterol (Ventolin Hfa 90 Mcg/Actuation (8 G)) 2 puff IH Q8 PRN PRN Reason: Shortness of Breath Amlodipine Besylate (Norvasc) 10 mg PO DAILY [facility] Last Admin: 02/08/18 10:02 Dose: 10 mg Atorvastatin Calcium (Lipitor) 10 mg PO DAILY [facility] Last Admin: 02/08/18 10:03 Dose: 10 mg Enoxaparin Sodium (Lovenox) 40 mg SC DAILY [facility] PRN Reason: Protocol Last Admin: 02/08/18 10:03 Dose: 40 mg Fluticasone Propionate (Flonase) 1 spr PAOLA BID PRN PRN Reason: Nasal congestion Folic Acid (Folic Acid) 1 mg PO DAILY [facility] Last Admin: 02/08/18 10:03 Dose: 1 mg Gabapentin (Neurontin) 300 mg PO TID [facility] Last Admin: 02/08/18 13:54 Dose: 300 mg Insulin Human Lispro (Humalog) 0 units SC ACHS [facility] PRN Reason: Protocol Last Admin: 02/08/18 13:53 Dose: 2 u Lorazepam (Ativan) 1 mg PO BID PRN PRN Reason: withdrawal symptoms only Last Admin: 02/07/18 08:41 Dose: 1 mg Memantine (Namenda) 10 mg PO Q12 [facility] Last Admin: 02/08/18 10:02 Dose: 10 mg Metoprolol Succinate (Toprol Xl) 25 mg PO DAILY [facility] Last Admin: 02/08/18 10:01 Dose: 25 mg Multivitamins/Minerals (Therapeutic-M Tab) 1 tab PO DAILY [facility] Last Admin: 02/08/18 10:01 Dose: 1 tab Ondansetron HCl (Zofran Inj) 4 mg IVP Q6 PRN PRN Reason: Nausea/Vomiting Pantoprazole Sodium (Protonix Ec Tab) 40 mg PO DAILY [facility] Last Admin: 02/08/18 10:02 Dose: 40 mg Thiamine HCl (Vitamin B1 Tab) 100 mg PO DAILY [facility] Last Admin: 02/08/18 10:00 Dose: 100 mg - Labs Labs: 02/08/18 06:34 02/08/18 06:34 PT 11.9 Seconds (9.8-13.1) 02/04/18 17:50 INR 1.1 (0.9-1.2) 02/04/18 17:50 APTT 27.5 Seconds (25.6-37.1) 02/04/18 17:50 - Additional Findings Additional findings: Physical exam: Constitutional- cooperative, awake, alert and oriented x 3, although intermittent periods of confusion. Head- NCAT, PERRL Eye- PERRL, EOMI ENT- normal exam, MMM. Neck- normal inspection, supple, no JVD Respiratory- CTAB, no wheezes rales rhonchi Cardiovascular- RRR, +S1, +S2 no MRG GI/Abdominal- normal bowel sounds, soft, no mass, no hsm Skin- warm, dry Extremities Exam- normal capillary refill, normal inspection Neurological Exam- alert, awake, oriented + unsteady gait when assess with physical therapy Psych- normal mood, normal affect Assessment and Plan - Assessment and Plan (Free Text) Plan: 58 y/o male with PMHx significant for EtOH abuse, HTN, and HLD who was brought in to the ER after he was noted to be having seizures in the hallway of his apartment. Found in post-ictal state by EMS. Patient himself denies having seizures, states he just felt tired. Patient had his last drink about 5-7 days prior to admission. Patient denies ingestion of any other substances besides EtOH. In the hospital , patient had another episode of Syncope while in the bathroom and afterwards was brought to the ED where it was thought his seizure was most likely due to ETOH withdrawal. Neurology was consulted and started the patient on Depakote initially and was then switched to Gabapentin. PMD Torey Butts 1) Seizure possible EtOH withdrawal seizure, no further seizure episodes witnessed inpt. - Neurology consulted, Dr. Espinoza - Pt started on Gabapentin which will be continued outpatient - Ativan PO prn for seizure and withdrawal sxs - Patient must completely abstain from ETOH which was explained. - folic acid, thiamine, mvi was recieved daily. - CT of head: neg , CT of C spine : no fracture -EEG: neg - Patient's confusion improved today but still with unsteady gait considered unsafe discharge by physical therapy even with walker; will discontinue librium and Benadryl and have PT reassess tomorrow. 2) Hyponatremia -- may be 2/2 chronic EtOH intake/poor nutrition, but maybe worsened by vol depletion/diuretics - IVF hydration while in house -Holding diuretics 3) Pancreas mass per CT - GI consulted- rec CT Pancreatic protocol CT of Pancreas: 8.6 cm irregular, cystic lesion is seen related to the tail of the pancreas without ascites, edema, or significant lymphadenopathy in the abdomen or pelvis. Until proven otherwise, this is considered a malignant cystic pancreatic lesion and surgical consultation is recommended. -according to GI- mass may be a Pseudocyst- recommended outpatient EUS - Referral for patient to follow up with Dr. Bender given as patient should follow up at [place] for endoscopic ultrasound with fine needle aspiration as there is concern for possible malignancy. 4) HTN cont Norvasc and Metoprolol outpt d/c diuretics 5) DVT PPx -- SCDs and Lovenox during admission
--- NOTE | 2018-02-09 01:21 | CP.PCM.PCO ---
Physician Communication Note - Physician Communication Note Physician Communication Note: Patient very Agitated
[2018-02-09] MEDS: Insulin Lispro (humaLOG) 100 Units/ml Inj SC SCH ×4 (06:32→21:24)
[2018-02-09] MEDS ORDERED: DiphenhydrAMINE 50 mg/ml Inj IVP PRN (09:18)
[2018-02-09] MEDS: Multivitamin With Minerals Tab PO SCH (09:24)
[2018-02-09] MEDS: Metoprolol Succinate 25 mg XL Tab PO SCH (09:24)
--- NOTE | 2018-02-09 09:24 | CP.PCM.PN ---
Subjective - Date & Time of Evaluation Date of Evaluation: 02/09/18 Time of Evaluation: 09:21 - Subjective Subjective: Mr. Lew was seen and examined at the bedside. He is awake, restless, He denies any headache, or dizziness, but insist of getting up due to his therapy. He is able to move all extremities. He had an episode of agitation last night was medicated with ativan.He is on telesitter for patient safety. Objective - Vital Signs/Intake and Output Vital Signs (last 24 hours): Temp Pulse Resp BP Pulse Ox 98.3 F 79 17 132/81 100 02/09/18 08:44 02/09/18 08:44 02/09/18 08:44 02/09/18 08:44 02/09/18 08:44 - Medications Medications: Current Medications Albuterol (Ventolin Hfa 90 Mcg/Actuation (8 G)) 2 puff IH Q8 PRN PRN Reason: Shortness of Breath Amlodipine Besylate (Norvasc) 10 mg PO DAILY [facility] Last Admin: 02/08/18 10:02 Dose: 10 mg Atorvastatin Calcium (Lipitor) 10 mg PO DAILY [facility] Last Admin: 02/08/18 10:03 Dose: 10 mg Diphenhydramine HCl (Benadryl) 50 mg IVP Q8 PRN PRN Reason: Agitation Enoxaparin Sodium (Lovenox) 40 mg SC DAILY [facility] PRN Reason: Protocol Last Admin: 02/08/18 10:03 Dose: 40 mg Fluticasone Propionate (Flonase) 1 spr PAOLA BID PRN PRN Reason: Nasal congestion Folic Acid (Folic Acid) 1 mg PO DAILY [facility] Last Admin: 02/08/18 10:03 Dose: 1 mg Gabapentin (Neurontin) 300 mg PO TID [facility] Last Admin: 02/08/18 17:16 Dose: 300 mg Insulin Human Lispro (Humalog) 0 units SC ACHS [facility] PRN Reason: Protocol Last Admin: 02/09/18 06:32 Dose: 2 u Lorazepam (Ativan) 1 mg PO BID PRN PRN Reason: withdrawal symptoms only Last Admin: 02/07/18 08:41 Dose: 1 mg Memantine (Namenda) 10 mg PO Q12 [facility] Last Admin: 02/08/18 22:05 Dose: 10 mg Metoprolol Succinate (Toprol Xl) 25 mg PO DAILY [facility] Last Admin: 02/08/18 10:01 Dose: 25 mg Multivitamins/Minerals (Therapeutic-M Tab) 1 tab PO DAILY [facility] Last Admin: 02/08/18 10:01 Dose: 1 tab Nicotine (Nicoderm Cq) 1 patch TD DAILY [facility] Last Admin: 02/09/18 01:39 Dose: 1 patch Ondansetron HCl (Zofran Inj) 4 mg IVP Q6 PRN PRN Reason: Nausea/Vomiting Pantoprazole Sodium (Protonix Ec Tab) 40 mg PO DAILY [facility] Last Admin: 02/08/18 10:02 Dose: 40 mg Thiamine HCl (Vitamin B1 Tab) 100 mg PO DAILY [facility] Last Admin: 02/08/18 10:00 Dose: 100 mg - Labs Labs: 02/08/18 06:34 02/08/18 06:34 PT 11.9 Seconds (9.8-13.1) 02/04/18 17:50 INR 1.1 (0.9-1.2) 02/04/18 17:50 APTT 27.5 Seconds (25.6-37.1) 02/04/18 17:50 - Constitutional Appears: No Acute Distress - Head Exam Head Exam: NORMAL INSPECTION - Neurological Exam Neurological Exam: Awake Neuro motor strength exam: Left Upper Extremity: 4, Right Upper Extremity: 4, Left Lower Extremity: 4, Right Lower Extremity: 4 Additional comments: He is restless, able to answer few questions, but unable to participate during assessment. Assessment and Plan (1) Alcohol withdrawal seizure Assessment & Plan: Case discussed with Dr. Saravia, continue all current medical therapy. Recommend benadryl 50 mg IV Q 8 PRN for agitation. Status: Acute
[2018-02-09] MEDS: Pantoprazole 40 mg EC Tab PO SCH (09:25)
[2018-02-09] MEDS: Enoxaparin 40 mg Syringe SC SCH (09:30)
--- NOTE | 2018-02-09 13:03 | PCM.RRT ---
<Tj Melendez - Last Filed: 02/09/18 13:32> CASTING COORDINATOR Nurse Assessment - Situation Location: [address] [place] [address] Room Number: 403-1 CASTING COORDINATOR Reason for Call: Not Responding to Urgent Treatment CASTING COORDINATOR Called By: RN - IV IV Inserted during CASTING COORDINATOR?: No - Respiratory Oxygen Delivery Method: Room Air Received Nebulizer Treatments: No Was the Patient Ventilated with Bag/Mask 100% O2?: No Secretions Suctioned?: No Was the Patient Intubated?: No Was the Patient Placed on a Ventilator?: No - Medication Medications Administered During CASTING COORDINATOR: None - Diagnostic Test Ordered EKG: No Chest X-Ray: No CT Scan: No CPR started during CASTING COORDINATOR?: No - Vital Signs Vital Signs: Rapid Response Vital Sign Blood Pressure 124/74 Pulse Rate 76 Respiratory Rate 16 Temperature 97.6 F Oxygen Saturation 99 - Time CASTING COORDINATOR Ended Time CASTING COORDINATOR Ended: 19:10 - Vital Signs at end of CASTING COORDINATOR Vital Signs at end of CASTING COORDINATOR: Rapid Response End Vital Sign Blood Pressure 124/74 Pulse Rate 76 Respiratory Rate 16 Temperature 97.6 F O2 Sat by Pulse Oximetry 99 - Recommendations CASTING COORDINATOR Level of Care Recommendations: Remain in current setting Plan - Assessment of Findings&Treatment Plan CASTING COORDINATOR CASTING COORDINATOR TIME 12:54 CASTING COORDINATOR location: [facility]- CASTING COORDINATOR REASON: unresponsive S: Maximino 58 yo male with pmhx of seizure, found by nurse sitting in chair, not responsive to verbal or tactile stimuli with urinary incontinence. Similar to previous episode of seizure O: CASTING COORDINATOR VITALS: 130/78; 80bpm 97.5f intervention: CBC, CMP, Mg, Phos Called Dr. Espinoza: Recommended Depakote: loading dose of 1 gm followed with 500 mg BID d/c Neurontin Post ictal: Vitals and hemodynamically stable Pt became responsive and verbal CASTING COORDINATOR END 13:14 CASTING COORDINATOR vitals: 123/78 79 bpm 97.5 F CASTING COORDINATOR Attending: Dr. Levine CASTING COORDINATOR residents: Tj Melendez MD [id number]; Hattie Welch DO PGY3 <Edmundo Levine - Last Filed: 02/09/18 14:10> CASTING COORDINATOR Nurse Assessment - Vital Signs Vital Signs: Rapid Response Vital Sign Blood Pressure 124/74 Pulse Rate 76 Respiratory Rate 16 Temperature 97.6 F Oxygen Saturation 99 - Vital Signs at end of CASTING COORDINATOR Vital Signs at end of CASTING COORDINATOR: Rapid Response End Vital Sign Blood Pressure 124/74 Pulse Rate 76 Respiratory Rate 16 Temperature 97.6 F O2 Sat by Pulse Oximetry 99
[2018-02-09] MEDS ORDERED: Valproate 1,000 MG in Sodium Chloride 0.9% 100 ML IVPB ONE (13:06)
[2018-02-09] MEDS ORDERED: Divalproex 500 mg DR(BID formulation) PO ONE (13:45)
[2018-02-09 14:49] LABS: HEMOGLOBIN 10.6 g/dL (12.0-18.0); MEAN CORPUSCULAR HEMOGLOBIN 31.3 pg (27.0-31.0); MEAN CORPUSCULAR HGB CONC 34.1 g/dL (33.0-37.0); RBC 3.39 Mil/uL (4.40-5.90); RED CELL DISTRIBUTION WIDTH 16.1 % (11.5-14.5); WHITE BLOOD COUNT 8.3 K/uL (4.8-10.8)
[2018-02-09 15:09] LABS: ALB/GLOB RATIO 0.8 (1.0-2.1); ALBUMIN 3.1 g/dL (3.5-5.0); ALT/SGPT 43 U/L (21-72); AST/SGOT 36 U/L (17-59); BLOOD UREA NITROGEN 11 mg/dl (9-20); CALCIUM 8.9 mg/dL (8.4-10.2); GFR AFRICAN-AMERICAN > 60; GFR NON-AFRICAN AMERICAN > 60
--- NOTE | 2018-02-09 16:58 | CP.PCM.PN ---
Subjective - Date & Time of Evaluation Date of Evaluation: 02/09/18 Time of Evaluation: 14:00 - Subjective Subjective: Patient was seen and examined at bedside. Overnight he was agitated and was administered Haldol and Ativan. In the AM he was more cooperative and awake and oriented x 3, however around approximately noon the patient suddenly became unresponsive with urinary incontinence while out of bed to chair. [facility] UNIT REGISTERED NURSE was called and the patient was placed back in bed. He was determined to be post ictal. Dr. Espinoza was called due to concern for a seizure and the patient was placed back on Depakote with a loading dose. He is now awake and oriented again. Objective - Vital Signs/Intake and Output Vital Signs (last 24 hours): Temp Pulse Resp BP Pulse Ox 97.7 F 87 20 120/78 99 02/09/18 16:07 02/09/18 16:07 02/09/18 16:07 02/09/18 16:07 02/09/18 16:07 - Medications Medications: Current Medications Albuterol (Ventolin Hfa 90 Mcg/Actuation (8 G)) 2 puff IH Q8 PRN PRN Reason: Shortness of Breath Amlodipine Besylate (Norvasc) 10 mg PO DAILY [facility] Last Admin: 02/09/18 09:25 Dose: 10 mg Atorvastatin Calcium (Lipitor) 10 mg PO DAILY [facility] Last Admin: 02/09/18 09:26 Dose: 10 mg Diphenhydramine HCl (Benadryl) 50 mg IVP Q8 PRN PRN Reason: Agitation Enoxaparin Sodium (Lovenox) 40 mg SC DAILY [facility] PRN Reason: Protocol Last Admin: 02/09/18 09:30 Dose: Not Given Fluticasone Propionate (Flonase) 1 spr PAOLA BID PRN PRN Reason: Nasal congestion Folic Acid (Folic Acid) 1 mg PO DAILY [facility] Last Admin: 02/09/18 09:24 Dose: 1 mg Insulin Human Lispro (Humalog) 0 units SC ACHS [facility] PRN Reason: Protocol Last Admin: 02/09/18 12:00 Dose: Not Given Lorazepam (Ativan) 1 mg PO BID PRN PRN Reason: withdrawal symptoms only Last Admin: 02/07/18 08:41 Dose: 1 mg Memantine (Namenda) 10 mg PO Q12 [facility] Last Admin: 02/09/18 09:25 Dose: 10 mg Metoprolol Succinate (Toprol Xl) 25 mg PO DAILY [facility] Last Admin: 02/09/18 09:24 Dose: 25 mg Multivitamins/Minerals (Therapeutic-M Tab) 1 tab PO DAILY [facility] Last Admin: 02/09/18 09:24 Dose: 1 tab Nicotine (Nicoderm Cq) 1 patch TD DAILY [facility] Last Admin: 02/09/18 09:25 Dose: 1 patch Ondansetron HCl (Zofran Inj) 4 mg IVP Q6 PRN PRN Reason: Nausea/Vomiting Pantoprazole Sodium (Protonix Ec Tab) 40 mg PO DAILY [facility] Last Admin: 02/09/18 09:25 Dose: 40 mg Thiamine HCl (Vitamin B1 Tab) 100 mg PO DAILY [facility] Last Admin: 02/09/18 09:24 Dose: 100 mg Valproate Sodium (Depakene Cap) 500 mg PO BID [facility] - Labs Labs: 02/09/18 14:10 02/09/18 14:10 PT 11.9 Seconds (9.8-13.1) 02/04/18 17:50 INR 1.1 (0.9-1.2) 02/04/18 17:50 APTT 27.5 Seconds (25.6-37.1) 02/04/18 17:50 - Additional Findings Additional findings: Physical exam: Constitutional- currently somnolen but arousable. + see subjective Head- NCAT, PERRL Eye- PERRL, EOMI ENT- normal exam, MMM. Neck- normal inspection, supple, no JVD Respiratory- CTAB, no wheezes rales rhonchi Cardiovascular- RRR, +S1, +S2 no MRG GI/Abdominal- normal bowel sounds, soft, no mass, no hsm Skin- warm, dry Extremities Exam- normal capillary refill, normal inspection Neurological Exam- alert, awake, oriented + unsteady gait when assess with physical therapy Psych- normal mood, normal affect Assessment and Plan - Assessment and Plan (Free Text) Plan: Plan: 58 y/o male with PMHx significant for EtOH abuse, HTN, and HLD who was brought in to the ER after he was noted to be having seizures in the hallway of his apartment. Found in post-ictal state by EMS. Patient himself denies having seizures, states he just felt tired. Patient had his last drink about 5-7 days prior to admission. Patient denies ingestion of any other substances besides EtOH. In the hospital , patient had another episode of Syncope while in the bathroom and afterwards was brought to the ED where it was thought his seizure was most likely due to ETOH withdrawal. Neurology was consulted and started the patient on Depakote initially and was then switched to Gabapentin. On 02/09 the patient again was found unresponsive and post ictal. Patient was placed on Depakote by neurology. He is unable to ambulate at this time even with a walker due to weakness. Discussed with family at bedside. PMD Torey Butts 1) Seizure possible EtOH withdrawal seizure, no further seizure episodes witnessed inpt. - Neurology consulted, Dr. Espinoza/Dr. Saravia - Continue Depakote 500 mg po BID - Ativan PO prn for seizure and withdrawal sxs - Dr. Saravia- Benadryl IVP PRN for agitation - Patient must completely abstain from ETOH which was explained. - folic acid, thiamine, mvi was recieved daily. - CT of head: neg , CT of C spine : no fracture -EEG: neg - still with unsteady gait considered unsafe discharge by physical therapy even with walker 2) Hyponatremia -- may be 2/2 chronic EtOH intake/poor nutrition, but maybe worsened by vol depletion/diuretics - IVF hydration while in house -Holding diuretics 3) Pancreas mass per CT - GI consulted- rec CT Pancreatic protocol CT of Pancreas: 8.6 cm irregular, cystic lesion is seen related to the tail of the pancreas without ascites, edema, or significant lymphadenopathy in the abdomen or pelvis. Until proven otherwise, this is considered a malignant cystic pancreatic lesion and surgical consultation is recommended. -according to GI- mass may be a Pseudocyst- recommended outpatient EUS - Referral for patient to follow up with Dr. Benedr given as patient should follow up at [place] for endoscopic ultrasound with fine needle aspiration as there is concern for possible malignancy. 4) HTN cont Norvasc and Metoprolol d/c diuretics 5) DVT PPx -- SCDs and Lovenox during admission
[2018-02-10 00:21] VITALS: RESP 18
[2018-02-10 06:13] LABS: HEMOGLOBIN 10.9 g/dL (12.0-18.0); MEAN CORPUSCULAR HEMOGLOBIN 30.8 pg (27.0-31.0); MEAN CORPUSCULAR HGB CONC 33.2 g/dL (33.0-37.0); RBC 3.52 Mil/uL (4.40-5.90); RED CELL DISTRIBUTION WIDTH 15.8 % (11.5-14.5); WHITE BLOOD COUNT 7.6 K/uL (4.8-10.8)
[2018-02-10 06:31] LABS: BLOOD UREA NITROGEN 9 mg/dl (9-20); CALCIUM 8.7 mg/dL (8.4-10.2); GFR AFRICAN-AMERICAN > 60; GFR NON-AFRICAN AMERICAN > 60
[2018-02-10] MEDS: Insulin Lispro (humaLOG) 100 Units/ml Inj SC SCH ×2 (06:32→12:30)
[2018-02-10] MEDS: Enoxaparin 40 mg Syringe SC SCH (08:02)
[2018-02-10] MEDS: Pantoprazole 40 mg EC Tab PO SCH (08:03)
[2018-02-10] MEDS: Metoprolol Succinate 25 mg XL Tab PO SCH (08:03)
[2018-02-10] MEDS: Multivitamin With Minerals Tab PO SCH (08:03)
--- NOTE | 2018-02-10 09:23 | CP.PCM.DIS ---
Provider - Provider Date of Admission: 02/04/18 21:11 Attending physician: Dalia Freitas MD Time Spent in preparation of Discharge (in minutes): 30 Diagnosis - Discharge Diagnosis (1) Alcohol withdrawal seizure Status: Acute Priority: High Hospital Course - Lab Results Lab Results: Micro Results 02/04/18 20:30 Blood Blood Culture - Final NO GROWTH AFTER 5 DAYS 02/04/18 20:30 Blood Gram Stain - Final TEST NOT PERFORMED 02/04/18 20:30 Blood Blood Culture - Final NO GROWTH AFTER 5 DAYS 02/04/18 20:30 Blood Gram Stain - Final TEST NOT PERFORMED Most Recent Lab Values WBC 7.6 K/uL (4.8-10.8) 02/10/18 04:20 RBC 3.52 Mil/uL (4.40-5.90) L 02/10/18 04:20 Hgb 10.9 g/dL (12.0-18.0) L 02/10/18 04:20 Hct 32.7 % (35.0-51.0) L 02/10/18 04:20 MCV 93.0 fl (80.0-94.0) 02/10/18 04:20 MCH 30.8 pg (27.0-31.0) 02/10/18 04:20 MCHC 33.2 g/dL (33.0-37.0) 02/10/18 04:20 RDW 15.8 % (11.5-14.5) H 02/10/18 04:20 Plt Count 357 K/uL (130-400) 02/10/18 04:20 MPV 7.9 fl (7.2-11.7) 02/08/18 06:34 Neut % (Auto) 74.6 % (50.0-75.0) 02/08/18 06:34 Lymph % (Auto) 12.4 % (20.0-40.0) L 02/08/18 06:34 [place] % (Auto) 9.6 % (0.0-10.0) 02/08/18 06:34 Eos % (Auto) 3.2 % (0.0-4.0) 02/08/18 06:34 Baso % (Auto) 0.2 % (0.0-2.0) 02/08/18 06:34 Neut # (Auto) 6.8 K/uL (1.8-7.0) 02/08/18 06:34 Lymph # (Auto) 1.1 K/uL (1.0-4.3) 02/08/18 06:34 [place] # (Auto) 0.9 K/uL (0.0-0.8) H 02/08/18 06:34 Eos # (Auto) 0.3 K/uL (0.0-0.7) 02/08/18 06:34 Baso # (Auto) 0.0 K/uL (0.0-0.2) 02/08/18 06:34 Neutrophils % (Manual) 83 % (42-75) H 02/04/18 17:50 Band Neutrophils % 2 % (0-2) 02/04/18 17:50 Lymphocytes % (Manual) 10 % (20-50) L 02/04/18 17:50 Monocytes % (Manual) 4 % (0-10) 02/04/18 17:50 Eosinophils % (Manual) 1 % (0-7) 02/04/18 17:50 Smudge Cells Present 02/04/18 17:50 Platelet Estimate Normal (NORMAL) 02/04/18 17:50 Polychromasia Slight 02/04/18 17:50 Hypochromasia (manual) Slight 02/04/18 17:50 Poikilocytosis (manual Slight 02/04/18 17:50 Anisocytosis (manual) Moderate 02/04/18 17:50 Ovalocytes Slight 02/04/18 17:50 PT 11.9 Seconds (9.8-13.1) 02/04/18 17:50 INR 1.1 (0.9-1.2) 02/04/18 17:50 APTT 27.5 Seconds (25.6-37.1) 02/04/18 17:50 pO2 23 mm/Hg (30-55) L 02/04/18 20:31 VBG pH 7.42 (7.32-7.43) 02/04/18 20:31 VBG pCO2 39 mmHg (40-60) L 02/04/18 20:31 VBG HCO3 24.3 mmol/L 02/04/18 20:31 VBG Total CO2 26.5 mmol/L (22-28) 02/04/18 20:31 VBG O2 Sat (Calc) 45.1 % (40-65) 02/04/18 20:31 VBG Base Excess 0.8 mmol/L (0.0-2.0) 02/04/18 20:31 VBG Potassium 3.6 mmol/L (3.6-5.2) 02/04/18 20:31 Sodium 121.0 mmol/L (132-148) L 02/04/18 20:31 Chloride 94.0 mmol/L (98-107) L 02/04/18 20:31 Glucose 104 mg/dL (75-110) 02/04/18 20:31 Lactate 2.1 mmol/L (0.7-2.1) 02/04/18 20:31 FiO2 21.0 % 02/04/18 20:31 Sodium 134 mmol/l (132-148) 02/10/18 04:20 Potassium 4.0 MMOL/L (3.6-5.0) 02/10/18 04:20 Chloride 96 mmol/L (98-107) L 02/10/18 04:20 Carbon Dioxide 26 mmol/L (22-30) 02/10/18 04:20 Anion Gap 16 (10-20) 02/10/18 04:20 BUN 9 mg/dl (9-20) 02/10/18 04:20 Creatinine 0.8 mg/dl (0.8-1.5) 02/10/18 04:20 Est GFR ( Amer) > 60 02/10/18 04:20 Est GFR (Non-Af Amer) > 60 02/10/18 04:20 POC Glucose (mg/dL) 143 mg/dL (65-110) H 02/10/18 06:39 Random Glucose 98 mg/dL (75-110) 02/10/18 04:20 Calcium 8.7 mg/dL (8.4-10.2) 02/10/18 04:20 Phosphorus 3.6 mg/dl (2.5-4.5) 02/09/18 14:10 Magnesium 1.8 MG/DL (1.6-2.3) 02/09/18 14:10 Total Bilirubin 0.2 mg/dl (0.2-1.3) 02/09/18 14:10 AST 36 U/L (17-59) 02/09/18 14:10 ALT 43 U/L (21-72) 02/09/18 14:10 Alkaline Phosphatase 56 U/L (38-126) 02/09/18 14:10 Troponin I < 0.0120 ng/mL (0.00-0.120) 02/04/18 17:50 Total Protein 7.1 G/DL (6.3-8.2) 02/09/18 14:10 Albumin 3.1 g/dL (3.5-5.0) L 02/09/18 14:10 Globulin 4.0 gm/dL (2.2-3.9) H 02/09/18 14:10 Albumin/Globulin Ratio 0.8 (1.0-2.1) L 02/09/18 14:10 Venous Blood Potassium 3.6 mmol/L (3.6-5.2) 02/04/18 20:31 Urine Color Yellow (YELLOW) 02/05/18 05:14 Urine Clarity Clear (Clear) 02/05/18 05:14 Urine pH 7.0 (5.0-8.0) 02/05/18 05:14 Ur Specific [place] 1.010 (1.003-1.030) 02/05/18 05:14 Urine Protein Negative mg/dL (NEGATIVE) 02/05/18 05:14 Urine Glucose (UA) Neg mg/dL (Normal) 02/05/18 05:14 Urine Ketones Negative mg/dL (NEGATIVE) 02/05/18 05:14 Urine Blood Negative (NEGATIVE) 02/05/18 05:14 Urine Nitrate Negative (NEGATIVE) 02/05/18 05:14 Urine Bilirubin Negative (NEGATIVE) 02/05/18 05:14 Urine Urobilinogen 4.0 mg/dL (0.2-1.0) 02/05/18 05:14 Ur Leukocyte Esterase Neg Tia/uL (Negative) 02/05/18 05:14 Urine RBC (Auto) 2 /hpf (0-3) 02/05/18 05:14 Urine Microscopic WBC < 1 /hpf (0-5) 02/05/18 05:14 Ur Random Sodium 84 meq/L 02/05/18 09:30 Ur Random Potassium 26.9 mmol/L 02/05/18 09:30 Stool Occult Blood Positive (NEGATIVE) H 02/06/18 10:44 Urine Opiates Screen Negative (NEGATIVE) 02/04/18 22:21 Urine Methadone Screen Negative (NEGATIVE) 02/04/18 22:21 Ur Barbiturates Screen Negative (NEGATIVE) 02/04/18 22:21 Ur Phencyclidine Scrn Negative (NEGATIVE) 02/04/18 22:21 Ur Amphetamines Screen Negative (NEGATIVE) 02/04/18 22:21 U Benzodiazepines Scrn Negative (NEGATIVE) 02/04/18 22:21 U Oth Cocaine Metabols Negative (NEGATIVE) 02/04/18 22:21 U Cannabinoids Screen Negative (NEGATIVE) 02/04/18 22:21 Alcohol, Quantitative < 10 mg/dl (0-10) 02/04/18 17:50 - Hospital Course Hospital Course: 58 y/o male with PMHx significant for EtOH abuse, HTN, and HLD who was brought in to the ER after he was noted to be having seizures in the hallway of his apartment. Found in post-ictal state by EMS. Patient himself denies having seizures, states he just felt tired. Patient had his last drink about 5-7 days prior to admission. Patient denies ingestion of any other substances besides EtOH. In the hospital , patient had another episode of Syncope while in the bathroom and afterwards was brought to the ED where it was thought his seizure was most likely due to ETOH withdrawal. Neurology was consulted and started the patient on Depakote initially and was then switched to Gabapentin. On 02/09 the patient again was found unresponsive and post ictal. Patient was placed on Depakote by neurology. He is unable to ambulate at this time even with a walker due to weakness. Discussed with family at bedside. 02/10 patient no longer had any further episodes, reinitiated on depakote. Scripts given. Pt evaluated by PT, [facility] up with [facility]D. 1) Seizure possible EtOH withdrawal seizure, no further seizure episodes witnessed inpt. - Neurology consulted, Dr. Espinoza/Dr. Saravia - Continue Depakote 500 mg po BID - Ativan PO prn for seizure and withdrawal sxs - Patient must completely abstain from ETOH which was explained. - folic acid, thiamine, mvi was recieved daily. - CT of head: neg , CT of C spine : no fracture -EEG: neg 2) Hyponatremia -- may be 2/2 chronic EtOH intake/poor nutrition, but maybe worsened by vol depletion/diuretics - IVF hydration while in house -Holding diuretics 3) Pancreas mass per CT - GI consulted- rec CT Pancreatic protocol CT of Pancreas: 8.6 cm irregular, cystic lesion is seen related to the tail of the pancreas without ascites, edema, or significant lymphadenopathy in the abdomen or pelvis. Until proven otherwise, this is considered a malignant cystic pancreatic lesion and surgical consultation is recommended. -according to GI- mass may be a Pseudocyst- recommended outpatient EUS - Referral for patient to follow up with Dr. Bender given as patient should follow up at [place] for endoscopic ultrasound with fine needle aspiration as there is concern for possible malignancy. 4) HTN cont Norvasc and Metoprolol d/c diuretics 5) DVT PPx -- SCDs and Lovenox during admission Discharge Exam - Head Exam Additional comments: GEN: awake, alert, cooperative HEENT: NCAT, PERRL, EOMI HEART: RRR, S1, S2 no MRG LUNG: CTAB, no WRR ABD: soft, nontender, nondistended, BSX4, no masses EXT: warm, well perfused SKIN: warm, dry NEURO: awake, alert PSYCH: normal mood and affect Discharge Plan - Discharge Medications Prescriptions: Folic Acid 1 mg PO DAILY #30 tab Gabapentin [Neurontin] 300 mg PO TID #90 cap Thiamine [Vitamin B1 Tab] 100 mg PO DAILY #30 tab - Follow Up Plan Condition: FAIR Disposition: HOME/ ROUTINE Instructions: Hyponatremia (DC) Additional Instructions: EUS as outpt rpt CT of chest in 12 months Referrals: Thiago Bender MD [Medical Doctor] - Paul Espinoza MD [Medical Doctor] -
[2018-02-10 12:09] VITALS: BP 119/76; PULSE 84; TEMP 98.2; O2SAT 100
== END 2018-02-10 14:08 | disposition home or self-care (01) | DRG 897 ==
LOC: H.ER 15:15 → H.ERHOLD 21:11 → H.TEL 02-05 00:07
PROVIDERS: ADMIT Internal Medicine; ATTEND Internal Medicine
DX: F10.239 Alcohol dependence with withdrawal, unspecified (principal); E87.1 Hypo-osmolality and hyponatremia; K86.9 Disease of pancreas, unspecified; G40.409 Other generalized epilepsy and epileptic syndromes, not intractable, without status epilepticus; E78.5 Hyperlipidemia, unspecified; E86.9 Volume depletion, unspecified; I10 Essential (primary) hypertension; E11.9 Type 2 diabetes mellitus without complications; K64.9 Unspecified hemorrhoids; R32 Unspecified urinary incontinence; F17.210 Nicotine dependence, cigarettes, uncomplicated; D64.9 Anemia, unspecified; R19.5 Other fecal abnormalities; Y90.0 Blood alcohol level of less than 20 mg/100 ml

== ENCOUNTER 2018-02-15 20:42 | Inpatient (IN) | payer MEDICARE, OTHER ==
[2018-02-15 20:44] VITALS: BMI 25.0
[2018-02-15] MEDS ORDERED: Multivitamin (MVI) 10 ML, Folic Acid 1 MG, Thiamine 100 MG in Dextrose 5%/0.45% NS 1,00... IV ONE (20:59)
--- NOTE | 2018-02-15 21:56 | ED PDOC ---
HPI: Trauma/Fall - HPI Time Seen by Provider: 02/15/18 20:49 Chief Complaint (Nursing): Trauma Chief Complaint (Provider): Trauma History Per: Patient History/Exam Limitations: no limitations Additional Complaint(s): 58 y/o male wit past medical history of alcoholism presents to the ED for evaluation of a fall. Reports that he fell twice today and admits and admits to alcohol use. patient was seen here recently for seizure and alcohol acidosis. Patient has been in poor health recently and has been non compliant with medications. Family reports that patient was found sitting in his own feces. Patient also reports generalized weakness. Denies nausea vomiting , fever or any further medical complaints. PMD: Torey Butts MD Past Medical History Reviewed: Historical Data Vital Signs: Last Vital Signs Temp 98 F 02/15/18 20:45 Pulse 100 H 02/15/18 20:45 Resp 16 02/15/18 20:45 BP 161/103 H 02/15/18 20:45 Pulse Ox 97 02/15/18 20:45 - Medical History PMH: HTN Denies: HIV - Surgical History Surgical History: No Surg Hx - Family History Family History: States: Unknown Family Hx - Social History Current smoker - smoking cessation education provided: No Alcohol: > 2 Drinks/Day (Heavy Drinker) Drugs: Denies - Home Medications Home Medications: Ambulatory Orders Medication Instructions Recorded Albuterol Sulfate [Proair Hfa] 2 puff IH Q8 PRN 02/04/18 Ergocalciferol (Vitamin D2) 50,000 unit PO QWK 02/04/18 [Vitamin D2] Fluticasone Nasal [Flonase] 1 spray PAOLA BID PRN 02/04/18 Memantine [Namenda] 10 mg PO Q12 02/04/18 Metoprolol Succinate [Toprol XL] 25 mg PO DAILY 02/04/18 Rosuvastatin Calcium [Crestor] 10 mg PO DAILY 02/04/18 amLODIPine [Norvasc] 10 mg PO DAILY 02/04/18 Gabapentin [Neurontin] 300 mg PO TID #90 cap 02/07/18 Multimineral/Multivitamin 1 tab PO DAILY tab 02/07/18 [Therapeutic-M Tab] Thiamine [Vitamin B1 Tab] 100 mg PO DAILY #30 tab 02/07/18 Folic Acid 1 mg PO DAILY #30 tab 02/08/18 - Allergies Allergies/Adverse Reactions: Allergies Allergy/AdvReac Type Severity Reaction Status Date / Time No Known Allergies Allergy Verified 02/15/18 20:44 Review of Systems ROS Statement: Except As Marked, All Systems Reviewed And Found Negative (As per HPI, otherwise negative) Constitutional: Positive for: Weakness (generalized), Other (Patient encountered a fall). Negative for: Fever Gastrointestinal: Negative for: Nausea, Vomiting Physical Exam - Reviewed Nursing Documentation Reviewed: Yes Vital Signs Reviewed: Yes - Physical Exam Appears: Positive for: Non-toxic, No Acute Distress Head Exam: Positive for: ATRAUMATIC, NORMAL INSPECTION, NORMOCEPHALIC Skin: Positive for: Normal Color, Warm, Dry Eye Exam: Positive for: EOMI, Normal appearance, PERRL ENT: Positive for: Normal ENT Inspection, Other (Tacky mucous membranes) Neck: Positive for: Normal, Painless ROM, Supple Cardiovascular/Chest: Positive for: Tachycardia Respiratory: Positive for: Normal Breath Sounds. Negative for: Accessory Muscle Use, Respiratory Distress Gastrointestinal/Abdominal: Positive for: Normal Exam, Soft. Negative for: Tenderness Back: Positive for: Normal Inspection Extremity: Positive for: Normal ROM. Negative for: Deformity Neurologic/Psych: Positive for: Alert, Oriented (x3). Negative for: Motor/ Sensory Deficits - Laboratory Results Result Diagrams: 02/15/18 22:40 02/15/18 22:40 - ECG O2 Sat by Pulse Oximetry: 97 (RA) Pulse Ox Interpretation: Normal Medical Decision Making Medical Decision Making: Time: 20:58 Initial Impression: 58 y/o male s/p fall Plan: EKG Alcohol serum CMP Creatine Phosphokinase Drug screen, urine Lactic acid, Plasma Magnesium Prolactin Urine dipstick CBC w/ differential PTT Prothrombin time Chest x-ray Dextrose 5% 1L IV Ativan 2mg IVP Heplock Insertion Accucheck Urinalysis Reevalaution 0034 Labs reviewed: no clinically significant abnormalities with the exceptions of mildly elevated creatinine kinase and blood alcohol levels. Patient will be admitted as discussed with Dr. Freitas for alcoholism, rhabdomyolysis, dehyrdration, and gait instability Condition: fair Scribe Attestation: Documented by Nusrat Avila acting as a scribe for Al Valle MD. MD Garzaibe Attestation: All medical record entries made by the Scribe were at my direction and personally dictated by me. I have reviewed the chart and agree that the record accurately reflects my personal performance of the history, physical exam, medical decision making, and the department course for this patient. I have also personally directed, reviewed, and agree with the discharge instructions and disposition. Disposition - Clinical Impression Clinical Impression: Physical deconditioning, Rhabdomyolysis, ETOH abuse - Patient ED Disposition Is Patient to be Admitted: Yes - Disposition Disposition Time: 00:31 Condition: FAIR - Pt Status Changed To: Hospital Disposition Of: Inpatient (INPATIENT TELE) - Admit Certification Admit to Inpatient:: After my assessment, the patient will require hospitalization for at least two midnights. This is because of the severity of symptoms shown, intensity of services needed, and/or the medical risk in this patient being treated as an outpatient.
[2018-02-15 22:09] LABS: URINE BILIRUBIN NEGATIVE (NEGATIVE); URINE BLOOD NEGATIVE (NEGATIVE); URINE CLARITY CLEAR (Clear); URINE COLOR STRAW (YELLOW); URINE GLUCOSE (UA) NEG (Normal); URINE LEUKOCYTE ESTERASE NEG Leu/uL (Negative); URINE PROTEIN NEGATIVE (NEGATIVE); URINE UROBILINOGEN 0.2-1.0 mg/dL (0.2-1.0)
[2018-02-15 22:47] LABS: BASO # 0.1 K/uL (0.0-0.2); BASO % 0.9 % (0.0-2.0); EOS # 0.1 K/uL (0.0-0.7); EOS % 1.6 % (0.0-4.0); HEMOGLOBIN 11.9 g/dL (12.0-18.0); LYMPH # 1.2 K/uL (1.0-4.3); LYMPH % 12.5 % (20.0-40.0); MEAN CELL VOLUME 91.6 fl (80.0-94.0); MEAN CORPUSCULAR HEMOGLOBIN 31.1 pg (27.0-31.0); MEAN CORPUSCULAR HGB CONC 33.9 g/dL (33.0-37.0); MEAN PLATELET VOLUME 6.1 fl (7.2-11.7); MONO # 0.9 K/uL (0.0-0.8); MONO % 9.1 % (0.0-10.0); NEUT # 7.1 K/uL (1.8-7.0); NEUT % 75.9 % (50.0-75.0); RBC 3.83 Mil/uL (4.40-5.90); RED CELL DISTRIBUTION WIDTH 15.8 % (11.5-14.5); WHITE BLOOD COUNT 9.4 K/uL (4.8-10.8)
[2018-02-15 22:52] LABS: BARBITURATES, UR NEGATIVE (NEGATIVE); BENZODIAZEPINES, UR POSITIVE (NEGATIVE); OPIATES, UR NEGATIVE (NEGATIVE); PHENCYCLIDINE, UR NEGATIVE (NEGATIVE)
[2018-02-15 23:57] LABS: ALB/GLOB RATIO 0.8 (1.0-2.1); ALBUMIN 3.3 g/dL (3.5-5.0); ALT/SGPT 34 U/L (21-72); AST/SGOT 41 U/L (17-59); BLOOD UREA NITROGEN 5 mg/dl (9-20); CALCIUM 8.5 mg/dL (8.4-10.2); GFR AFRICAN-AMERICAN > 60; GFR NON-AFRICAN AMERICAN > 60
--- NOTE | 2018-02-16 00:35 | CP.PCM.HP ---
History of Present Illness - History of Present Illness History of Present Illness: CC: EtOH use, gait instability/falls HPI: This is a 58 y/o male with MHx sig for EtOH abuse, HTN, and HLD who was brought in to the ER today after multiple falls and being found down in his apt. He was here just recently admitted here on 02/04 for EtOH w/d seizures. In the hospital, he appeared to have several episodes of syncope/seizures, and he was eventually started on depakote. He was discharged home in stable condition it appears. However, he comes in today again with ingestion of a large amount of EtOH. He was found down in his apt sitting in his feces apparently. Apparently, he had already fallen twice earlier today. No CP, SOB. Last drink was earlier today. PCP: Benjamín ROS: 14 systems reviewed, negative other than HPI MHx: HTN, HLD, EtOH abuse SHx: None Allergies: NKDA Medications: As per med rec Family Hx: patient cannot provide any relevant findings Social Hx: Lives in apartment with family nearby? Heavy daily EtOH use -- 5+ drinks often daily, no tobacco Present on Admission - Present on Admission Any Indicators Present on Admission: No Past Patient History - Infectious Disease Hx of Infectious Diseases: None - Tetanus Immunizations Tetanus Immunization: Unknown - Past Medical History & Family History Past Medical History?: Yes - Past Social History Alcohol: > 2 Drinks/Day (Heavy Drinker) Drugs: Denies - CARDIAC Hx Hypertension: Yes - ENDOCRINE/METABOLIC Hx Diabetes Mellitus Type 2: No (pt denied) - HEMATOLOGICAL/ONCOLOGICAL Hx Human Immunodeficiency Virus (HIV): No - INTEGUMENTARY Hx Dermatological Problems: Yes - MUSCULOSKELETAL/RHEUMATOLOGICAL Hx Falls: Yes - PSYCHIATRIC Hx Substance Use: No - SURGICAL HISTORY Hx Surgeries: Yes Other/Comment: Patient was unable to specify which surgeries he has had, but he said that he has had at least 7. - ANESTHESIA Hx Anesthesia: Yes Meds Allergies/Adverse Reactions: Allergies Allergy/AdvReac Type Severity Reaction Status Date / Time No Known Allergies Allergy Verified 02/15/18 20:44 Results - Vital Signs Recent Vital Signs: Last Vital Signs Temp 98 F 02/15/18 20:45 Pulse 100 H 02/15/18 20:45 Resp 16 02/15/18 20:45 BP 161/103 H 02/15/18 20:45 Pulse Ox 97 02/15/18 22:05 - Labs Result Diagrams: 02/15/18 22:40 02/15/18 22:40 Labs: Laboratory Results - last 24 hr 02/15/18 02/15/18 02/15/18 21:35 21:35 22:17 WBC RBC Hgb Hct MCV MCH MCHC RDW Plt Count MPV Neut % (Auto) Lymph % (Auto) [place] % (Auto) Eos % (Auto) Baso % (Auto) Neut # (Auto) Lymph # (Auto) [place] # (Auto) Eos # (Auto) Baso # (Auto) Sodium Potassium Chloride Carbon Dioxide Anion Gap BUN Creatinine Est GFR ( Amer) Est GFR (Non-Af Amer) POC Glucose (mg/dL) 104 Random Glucose Lactic Acid Calcium Magnesium Total Bilirubin AST ALT Alkaline Phosphatase Total Creatine Kinase Total Protein Albumin Globulin Albumin/Globulin Ratio Urine Color Straw Urine Clarity Clear Urine pH 6.0 Ur Specific [place] < 1.005 Urine Protein Negative Urine Glucose (UA) Neg Urine Ketones Negative Urine Blood Negative Urine Nitrate Negative Urine Bilirubin Negative Urine Urobilinogen 0.2-1.0 Ur Leukocyte Esterase Neg Urine Microscopic WBC < 1 Urine Opiates Screen Negative Urine Methadone Screen Negative Ur Barbiturates Screen Negative Ur Phencyclidine Scrn Negative Ur Amphetamines Screen Negative U Benzodiazepines Scrn Positive U Oth Cocaine Metabols Negative U Cannabinoids Screen Negative Alcohol, Quantitative 02/15/18 02/15/18 02/15/18 22:40 22:40 22:40 WBC 9.4 RBC 3.83 L Hgb 11.9 L Hct 35.0 MCV 91.6 MCH 31.1 H MCHC 33.9 RDW 15.8 H Plt Count 505 H D MPV 6.1 L Neut % (Auto) 75.9 H Lymph % (Auto) 12.5 L [place] % (Auto) 9.1 Eos % (Auto) 1.6 Baso % (Auto) 0.9 Neut # (Auto) 7.1 H Lymph # (Auto) 1.2 [place] # (Auto) 0.9 H Eos # (Auto) 0.1 Baso # (Auto) 0.1 Sodium 135 Potassium 4.5 Chloride 98 Carbon Dioxide 22 Anion Gap 20 BUN 5 L Creatinine 0.9 Est GFR ( Amer) > 60 Est GFR (Non-Af Amer) > 60 POC Glucose (mg/dL) Random Glucose 95 Lactic Acid 2.4 H Calcium 8.5 Magnesium 2.1 Total Bilirubin 0.3 AST 41 ALT 34 Alkaline Phosphatase 90 Total Creatine Kinase 411 H Total Protein 7.6 Albumin 3.3 L Globulin 4.3 H Albumin/Globulin Ratio 0.8 L Urine Color Urine Clarity Urine pH Ur Specific [place] Urine Protein Urine Glucose (UA) Urine Ketones Urine Blood Urine Nitrate Urine Bilirubin Urine Urobilinogen Ur Leukocyte Esterase Urine Microscopic WBC Urine Opiates Screen Urine Methadone Screen Ur Barbiturates Screen Ur Phencyclidine Scrn Ur Amphetamines Screen U Benzodiazepines Scrn U Oth Cocaine Metabols U Cannabinoids Screen Alcohol, Quantitative 114 H - Imaging and Cardiology Chest x-ray Status: Image reviewed by me (unremarkable) Assessment & Plan (1) Rhabdomyolysis Assessment and Plan: 58 y/o male with EtOH abuse with recent dx of w/d seizures who comes in again, continuing to abuse EtOH, and now with frequent falls and mild Rhabdo. 1) Rhabdo/falls -Admit tele -IVF overnight, can get banana bag followed by LR when that finishes -Repeat BMP and CK -PT eval in AM 2) EtOH abuse/intoxication -Banana bag as above -Check EtOH level in AM 3) EtOH w/d seizures -Continue depakote 500 BID -PRN ativan 4) Pancreas mass found on CT previously -- outpatient f/u 5) HTN -- home meds 6) DVT PPx -- SCDs Status: Acute (2) Falls Status: Acute (3) ETOH abuse Status: Acute (4) Alcohol withdrawal seizure Status: Acute Priority: High (5) HTN (hypertension) Status: Acute Priority: High (6) DVT prophylaxis Status: Acute
[2018-02-16] MEDS ORDERED: FOLIC ACID IV ONE (00:52)
[2018-02-16] MEDS ORDERED: MULTIVITAMIN IV ONE (00:52)
[2018-02-16] MEDS ORDERED: THIAMINE IV ONE (00:52)
[2018-02-16] MEDS ORDERED: MAGNESIUM SULFATE IV ONE (00:52)
[2018-02-16] MEDS ORDERED: [UNRECOGNIZED DRUG - OTHER] IV ONE (00:52)
--- NOTE | 2018-02-16 08:02 | CARD ---
APPROVED REPORT EKG Measurement Heart [id number] <Conclusion> Normal sinus rhythm Normal ECG
[2018-02-16] MEDS: Divalproex 500 mg DR(BID formulation) PO SCH ×2 (09:08→18:44)
[2018-02-16] MEDS: Metoprolol Succinate 25 mg XL Tab PO SCH (09:08)
--- NOTE | 2018-02-16 09:15 | RAD ---
HISTORY: admit COMPARISON: Chest radiograph dated 02/04/2018 FINDINGS: LUNGS: No active pulmonary disease. PLEURA: No significant pleural effusion identified, no pneumothorax apparent. CARDIOVASCULAR: Normal. OSSEOUS STRUCTURES: Bilateral rib fractures redemonstrated. Unchanged. VISUALIZED UPPER ABDOMEN: Normal. OTHER FINDINGS: None. IMPRESSION: No active disease.
--- NOTE | 2018-02-16 15:58 | RAD ---
PROCEDURE: Radiographs of the pelvis and bilateral hips HISTORY: fall COMPARISON: None. FINDINGS: BONES: Pelvis: Unremarkable. Right hip:Unremarkable. Left hip:Nondisplaced incomplete intratrochanteric fracture. Nondisplaced fracture of the greater trochanter. JOINTS: Right hip: Unremarkable. Left hip: Unremarkable. Sacroiliac Joints: Unremarkable. Pubic symphysis: Unremarkable. SOFT TISSUES: Normal. OTHER FINDINGS: None. IMPRESSION: Nondisplaced incomplete left intertrochanteric fracture. Nondisplaced fracture of the left greater trochanter.
[2018-02-16 16:30] LABS: PROLACTIN 6.6 ng/mL (3.7-17.9)
[2018-02-16] MEDS: Multivitamin With Minerals Tab PO SCH (18:11)
--- NOTE | 2018-02-16 18:23 | CT ---
PROCEDURE: CT of the Left Hip. HISTORY: Left hip fx COMPARISON: Plain radiographs performed earlier the same day. TECHNIQUE: Contiguous axial images of the left hip were obtained. Coronal and sagittal reformats were generated. This CT exam was performed using one or more of the following dose reduction techniques: Automated exposure control, adjustment of the mA and/or kV according to patient size, and/or use of iterative reconstruction technique. FINDINGS: BONES: There is diffuse bone demineralization. There is an acute comminuted nondisplaced left intertrochanteric fracture. Bone alignment is normal. LEFT HIP JOINT: No dislocation. No degenerative changes. SOFT TISSUES: The periarticular muscles are normal. There is mild subcutaneous edema. IMPRESSION: Acute comminuted nondisplaced left intertrochanteric fracture. No dislocation.
[2018-02-17 05:48] LABS: HEMOGLOBIN 9.9 g/dL (12.0-18.0); MEAN CORPUSCULAR HEMOGLOBIN 31.1 pg (27.0-31.0); MEAN CORPUSCULAR HGB CONC 34.5 g/dL (33.0-37.0); RBC 3.19 Mil/uL (4.40-5.90); RED CELL DISTRIBUTION WIDTH 15.7 % (11.5-14.5); WHITE BLOOD COUNT 10.2 K/uL (4.8-10.8)
[2018-02-17 06:04] LABS: BLOOD UREA NITROGEN 7 mg/dl (9-20); CALCIUM 7.9 mg/dL (8.4-10.2); GFR AFRICAN-AMERICAN > 60; GFR NON-AFRICAN AMERICAN > 60
--- NOTE | 2018-02-17 06:15 | CP.PCM.CON ---
History of Present Illness - History of Present Illness History of Present Illness: 58 y/o male admitted with Fx Left Hip Pt has had multiple falls recently 2* to ETOH abuse PMH: HTN ETOH abuse EKG: normal Troponin: neg Past Patient History - Infectious Disease Hx of Infectious Diseases: None - Tetanus Immunizations Tetanus Immunization: Unknown - Past Medical History & Family History Past Medical History?: Yes - Past Social History Alcohol: > 2 Drinks/Day (Heavy Drinker) Drugs: Denies - CARDIAC Hx Hypertension: Yes - PULMONARY Hx Chronic Obstructive Pulmonary Disease (COPD): Yes - NEUROLOGICAL Hx Dementia: Yes Hx Seizures: Yes - RENAL Hx Chronic Kidney Disease: No - ENDOCRINE/METABOLIC Hx Diabetes Mellitus Type 2: No (pt denied) - HEMATOLOGICAL/ONCOLOGICAL Hx Human Immunodeficiency Virus (HIV): No - INTEGUMENTARY Hx Dermatological Problems: Yes Other/Comment: dry skin scaly leg Hidradenitis suppurativa - MUSCULOSKELETAL/RHEUMATOLOGICAL Hx Falls: Yes Hx Fractures: Yes (ribs (fall)) - GASTROINTESTINAL Hx Gastrointestinal Disorders: No - GENITOURINARY/GYNECOLOGICAL Hx Genitourinary Disorders: No - PSYCHIATRIC Hx Substance Use: No - SURGICAL HISTORY Hx Surgeries: Yes Other/Comment: at least 7 surgeries per pt related to hidradenitis. groin legs armpits - ANESTHESIA Hx Anesthesia: Yes Hx Anesthesia Reactions: No Hx Malignant Hyperthermia: No Meds Allergies/Adverse Reactions: Allergies Allergy/AdvReac Type Severity Reaction Status Date / Time No Known Allergies Allergy Verified 02/15/18 20:44 - Medications Medications: Current Medications Acetaminophen (Tylenol 325mg Tab) 650 mg PO Q6 PRN PRN Reason: Pain, Mild (1-3) Last Admin: 02/17/18 01:58 Dose: 650 mg Amlodipine Besylate (Norvasc) 10 mg PO DAILY [facility] Last Admin: 02/16/18 09:08 Dose: 10 mg Divalproex Sodium (Depakote Dr(*Bid*)) 500 mg PO BID [facility] Last Admin: 02/16/18 18:44 Dose: 500 mg Enoxaparin Sodium (Lovenox) 40 mg SC DAILY [facility] PRN Reason: Protocol Folic Acid (Folic Acid) 1 mg PO DAILY [facility] Last Admin: 02/16/18 18:11 Dose: 1 mg Lorazepam (Ativan) 1 mg PO TID PRN PRN Reason: withdrawal sx Memantine (Namenda) 10 mg PO Q12 [facility] Last Admin: 02/16/18 21:49 Dose: 10 mg Metoprolol Succinate (Toprol Xl) 25 mg PO DAILY [facility] Last Admin: 02/16/18 09:08 Dose: 25 mg Multivitamins/Minerals (Therapeutic-M Tab) 1 tab PO DAILY [facility] Last Admin: 02/16/18 18:11 Dose: 1 tab Thiamine HCl (Vitamin B1 Tab) 100 mg PO DAILY [facility] Last Admin: 02/16/18 18:11 Dose: 100 mg Results - Vital Signs Recent Vital Signs: Last Vital Signs Temp 98.5 F 02/17/18 05:00 Pulse 89 02/17/18 05:00 Resp 18 02/17/18 05:00 BP 122/77 02/17/18 05:00 Pulse Ox 97 02/17/18 05:00 - Labs Result Diagrams: 02/17/18 04:20 02/17/18 04:20 Labs: Laboratory Results - last 24 hr 02/15/18 02/16/18 02/17/18 22:40 07:50 04:20 WBC 10.2 RBC 3.19 L Hgb 9.9 L D Hct 28.7 L MCV 90.0 MCH 31.1 H MCHC 34.5 RDW 15.7 H Plt Count 504 H Sodium Potassium Chloride Carbon Dioxide Anion Gap BUN Creatinine Est GFR ( Amer) Est GFR (Non-Af Amer) Random Glucose Calcium Total Creatine Kinase 319 H Prolactin 6.6 Alcohol, Quantitative < 10 02/17/18 04:20 WBC RBC Hgb Hct MCV MCH MCHC RDW Plt Count Sodium 129 L Potassium 4.3 Chloride 95 L Carbon Dioxide 25 Anion Gap 13 BUN 7 L Creatinine 0.8 Est GFR ( Amer) > 60 Est GFR (Non-Af Amer) > 60 Random Glucose 103 Calcium 7.9 L Total Creatine Kinase Prolactin Alcohol, Quantitative Assessment & Plan (1) Fracture of left hip Assessment and Plan: Cardiac philippe the pt is cleared for surgery Status: Acute (2) ETOH abuse Status: Acute (3) Falls Status: Acute - Date & Time Date: 02/17/18 Time: 10:00
--- NOTE | 2018-02-17 07:55 | CP.PCM.PN ---
Subjective - Date & Time of Evaluation Date of Evaluation: 02/17/18 Time of Evaluation: 11:00 - Subjective Subjective: Patient seen and examined bedside. Feeling better .Pain is controlled . Hemodynamically stable, afebrile. Denies drinking , states that tripped and fell on his dog No acute issues overnight No signs of tremors or withdrawal Denies any chest pain or SOB Objective - Vital Signs/Intake and Output Vital Signs (last 24 hours): Temp Pulse Resp BP Pulse Ox 98.2 F 91 H 18 160/99 H 100 02/17/18 07:42 02/17/18 07:42 02/17/18 07:42 02/17/18 07:42 02/17/18 07:42 - Medications Medications: Current Medications Acetaminophen (Tylenol 325mg Tab) 650 mg PO Q6 PRN PRN Reason: Pain, Mild (1-3) Last Admin: 02/17/18 01:58 Dose: 650 mg Amlodipine Besylate (Norvasc) 10 mg PO DAILY [facility] Last Admin: 02/16/18 09:08 Dose: 10 mg Divalproex Sodium (Depakote Dr(*Bid*)) 500 mg PO BID [facility] Last Admin: 02/16/18 18:44 Dose: 500 mg Enoxaparin Sodium (Lovenox) 40 mg SC DAILY [facility] PRN Reason: Protocol Folic Acid (Folic Acid) 1 mg PO DAILY [facility] Last Admin: 02/16/18 18:11 Dose: 1 mg Lorazepam (Ativan) 1 mg PO TID PRN PRN Reason: withdrawal sx Memantine (Namenda) 10 mg PO Q12 [facility] Last Admin: 02/16/18 21:49 Dose: 10 mg Metoprolol Succinate (Toprol Xl) 25 mg PO DAILY [facility] Last Admin: 02/16/18 09:08 Dose: 25 mg Multivitamins/Minerals (Therapeutic-M Tab) 1 tab PO DAILY [facility] Last Admin: 02/16/18 18:11 Dose: 1 tab Thiamine HCl (Vitamin B1 Tab) 100 mg PO DAILY [facility] Last Admin: 02/16/18 18:11 Dose: 100 mg - Labs Labs: 02/17/18 04:20 02/17/18 04:20 - Constitutional Appears: No Acute Distress, Older Than Stated Age - Head Exam Head Exam: ATRAUMATIC, NORMOCEPHALIC - Eye Exam Eye Exam: EOMI, PERRL Pupil Exam: NORMAL ACCOMODATION - ENT Exam ENT Exam: Mucous Membranes Moist, Normal Exam - Neck Exam Neck Exam: Full ROM, Normal Inspection - Respiratory Exam Respiratory Exam: Clear to Ausculation Bilateral, NORMAL BREATHING PATTERN. absent: Rales, Rhonchi, Wheezes - Cardiovascular Exam Cardiovascular Exam: REGULAR RHYTHM, RRR, +S1, +S2. absent: JVD - GI/Abdominal Exam GI & Abdominal Exam: Soft, Normal Bowel Sounds. absent: Distended, Guarding, Rebound - Rectal Exam Rectal Exam: Deferred - Extremities Exam Extremities Exam: Normal Inspection. absent: Calf Tenderness, Pedal Edema Additional comments: right hip tenderness - Back Exam Back Exam: NORMAL INSPECTION - Neurological Exam Neurological Exam: Alert, Awake, CN II-XII Intact, Oriented x3 - Psychiatric Exam Psychiatric exam: Normal Affect - Skin Skin Exam: Dry Additional comments: lower extremity dry skin and multiple excoriations Assessment and Plan - Assessment and Plan (Free Text) Assessment: 58 y/o male with PMH of EtOH abuse,seizure, HTN, and HLD brought to the ER today after multiple falls and being found down in his apt. He was here just recently admitted on 02/04 for EtOH intoxication with seizures. In the hospital, he appeared to have several episodes of syncope/seizures, and he was eventually started on depakote. He was discharged home in stable condition. Again he is brought to ER with ingestion of a large amount of EtOH and found down in his apt sitting in his feces Ct hip showed Acute comminuted nondisplaced left intertrochanteric fracture He was started on IVF , MVI, thiamine, Folic acid and seizure precautions. Ortho was consulted . Plan for OR in AM 1.Acute comminuted nondisplaced left intertrochanteric fracture Ortho consulted cardio clearance on chart plan for OR in AM 2.Rhabdomyelysis secondary to falls continue IVF CPK trending down 3. Hyponatremia most likely volume depletion Started NS @ 100 cc/hr Repeat in AM 4.EtOH abuse/intoxication no signs of withdrawals or tremors Continue Thiamine, Folic acid ,MVi Denies drinking Withdrawal seizure precautions 5.EtOH w/d seizures Continue depakote 500 BID PRN ativan 6. Hypertension BP controlled Continue metoprolol f [facility] cardiology consulted for preop clearance Echo showed normal EF and wall motion 7. Pancreas mass found on CT previously outpatient f/u 8. Mild Dementia on Namenda 9. Anemia most likely chronic monitor closely type and cross match preop 10. DVT PPx SCDs
--- NOTE | 2018-02-17 08:19 | CP.PCM.PN ---
Subjective - Date & Time of Evaluation Date of Evaluation: 02/17/18 Time of Evaluation: 07:30 - Subjective Subjective: Patient is a 58 y/o male with h/o HTN, HLD and ETOH abuse admitted due to being found down in his apt after a large ETOH consumption. He is a poor historian. He complains of right lateral hip pain which began after regaining consciousness yesterday. Dr. Palma was consutled for orthopedic evaluation. The patient's hip pain is mild, intermittent and dull in quality. It is worsened by movement and WB. It is alleviated with rest and NWB. It is associated with mild swelling. He denies numbness/tingling down the RLE. He also denies CP/SOB/N/V/D/JJ/dysuria/melena. Objective - Vital Signs/Intake and Output Vital Signs (last 24 hours): Temp Pulse Resp BP Pulse Ox 98.2 F 91 H 18 160/99 H 100 02/17/18 07:42 02/17/18 07:42 02/17/18 07:42 02/17/18 07:42 02/17/18 07:42 - Medications Medications: Current Medications Acetaminophen (Tylenol 325mg Tab) 650 mg PO Q6 PRN PRN Reason: Pain, Mild (1-3) Last Admin: 02/17/18 01:58 Dose: 650 mg Amlodipine Besylate (Norvasc) 10 mg PO DAILY [facility] Last Admin: 02/16/18 09:08 Dose: 10 mg Divalproex Sodium (Depakote Dr(*Bid*)) 500 mg PO BID [facility] Last Admin: 02/16/18 18:44 Dose: 500 mg Enoxaparin Sodium (Lovenox) 40 mg SC DAILY [facility] PRN Reason: Protocol Folic Acid (Folic Acid) 1 mg PO DAILY [facility] Last Admin: 02/16/18 18:11 Dose: 1 mg Sodium Chloride (Sodium Chloride 0.9%) 1,000 mls @ 100 mls/hr IV .Q10H [facility] Stop: 02/18/18 07:56 Lorazepam (Ativan) 1 mg PO TID PRN PRN Reason: withdrawal sx Memantine (Namenda) 10 mg PO Q12 [facility] Last Admin: 02/16/18 21:49 Dose: 10 mg Metoprolol Succinate (Toprol Xl) 25 mg PO DAILY [facility] Last Admin: 02/16/18 09:08 Dose: 25 mg Multivitamins/Minerals (Therapeutic-M Tab) 1 tab PO DAILY [facility] Last Admin: 02/16/18 18:11 Dose: 1 tab Thiamine HCl (Vitamin B1 Tab) 100 mg PO DAILY [facility] Last Admin: 02/16/18 18:11 Dose: 100 mg - Labs Labs: 02/17/18 04:20 02/17/18 04:20 - Constitutional Appears: No Acute Distress - Head Exam Head Exam: ATRAUMATIC, NORMOCEPHALIC - Eye Exam Eye Exam: EOMI, PERRL - ENT Exam ENT Exam: Mucous Membranes Moist - Neck Exam Neck Exam: Full ROM - Respiratory Exam Respiratory Exam: NORMAL BREATHING PATTERN - GI/Abdominal Exam GI & Abdominal Exam: Soft. absent: Tenderness - Neurological Exam Neurological Exam: Alert, Awake - Skin Skin Exam: Normal Color, Warm Assessment and Plan (1) Intertrochanteric fracture of right hip Assessment & Plan: -NWB -Recommend surgical fixation with intermedullary nail tomorrow AM -NPO pMN -type and screen -medical and cardiac clearance -consult appreciated -patient's case and plan d/w Dr. Palma in agreement Status: Acute
--- NOTE | 2018-02-17 08:29 | CP.PCM.CON ---
History of Present Illness - History of Present Illness History of Present Illness: Patient is a 58 y/o male with h/o HTN, HLD and ETOH abuse admitted due to being found down in his apt after a large ETOH consumption. He is a poor historian. He complains of right lateral hip pain which began after regaining consciousness yesterday. Dr. Palma was consutled for orthopedic evaluation. The patient's hip pain is mild, intermittent and dull in quality. It is worsened by movement and WB. It is alleviated with rest and NWB. It is associated with mild swelling. He denies numbness/tingling down the RLE. He also denies CP/SOB/N/V/D/JJ/dysuria/melena. Review of Systems - Review of Systems All systems: reviewed and no additional remarkable complaints except Review of Systems: as per HPI Past Patient History - Infectious Disease Hx of Infectious Diseases: None - Tetanus Immunizations Tetanus Immunization: Unknown - Past Medical History & Family History Past Medical History?: Yes Past Family History: Reviewed and not pertinent - Past Social History Smoking Status: Unknown If Ever Smoked Alcohol: > 2 Drinks/Day (Heavy Drinker) Drugs: Denies - CARDIAC Hx Hypertension: Yes - PULMONARY Hx Chronic Obstructive Pulmonary Disease (COPD): Yes - NEUROLOGICAL Hx Dementia: Yes Hx Seizures: Yes - RENAL Hx Chronic Kidney Disease: No - ENDOCRINE/METABOLIC Hx Diabetes Mellitus Type 2: No (pt denied) - HEMATOLOGICAL/ONCOLOGICAL Hx Human Immunodeficiency Virus (HIV): No - INTEGUMENTARY Hx Dermatological Problems: Yes Other/Comment: dry skin scaly leg Hidradenitis suppurativa - MUSCULOSKELETAL/RHEUMATOLOGICAL Hx Falls: Yes Hx Fractures: Yes (ribs (fall)) - GASTROINTESTINAL Hx Gastrointestinal Disorders: No - GENITOURINARY/GYNECOLOGICAL Hx Genitourinary Disorders: No - PSYCHIATRIC Hx Substance Use: No - SURGICAL HISTORY Hx Surgeries: Yes Other/Comment: at least 7 surgeries per pt related to hidradenitis. groin legs armpits - ANESTHESIA Hx Anesthesia: Yes Hx Anesthesia Reactions: No Hx Malignant Hyperthermia: No Meds Allergies/Adverse Reactions: Allergies Allergy/AdvReac Type Severity Reaction Status Date / Time No Known Allergies Allergy Verified 02/15/18 20:44 - Medications Medications: Current Medications Acetaminophen (Tylenol 325mg Tab) 650 mg PO Q6 PRN PRN Reason: Pain, Mild (1-3) Last Admin: 02/17/18 01:58 Dose: 650 mg Amlodipine Besylate (Norvasc) 10 mg PO DAILY [facility] [place] Last Admin: 02/16/18 09:08 Dose: 10 mg Divalproex Sodium (Depakote Dr(*Bid*)) 500 mg PO BID [facility] Last Admin: 02/16/18 18:44 Dose: 500 mg Enoxaparin Sodium (Lovenox) 40 mg SC DAILY [facility] PRN Reason: Protocol Folic Acid (Folic Acid) 1 mg PO DAILY [facility] [place] Last Admin: 02/16/18 18:11 Dose: 1 mg Sodium Chloride (Sodium Chloride 0.9%) 1,000 mls @ 100 mls/hr IV .Q10H [facility] Stop: 02/18/18 07:56 Lorazepam (Ativan) 1 mg PO TID PRN PRN Reason: withdrawal sx Memantine (Namenda) 10 mg PO Q12 [facility] [place] Last Admin: 02/16/18 21:49 Dose: 10 mg Metoprolol Succinate (Toprol Xl) 25 mg PO DAILY [facility] [place] Last Admin: 02/16/18 09:08 Dose: 25 mg Multivitamins/Minerals (Therapeutic-M Tab) 1 tab PO DAILY [facility] [place] Last Admin: 02/16/18 18:11 Dose: 1 tab Thiamine HCl (Vitamin B1 Tab) 100 mg PO DAILY [facility] [place] Last Admin: 02/16/18 18:11 Dose: 100 mg Physical Exam - Constitutional Appears: No Acute Distress - Head Exam Head Exam: ATRAUMATIC, NORMOCEPHALIC - Eye Exam Eye Exam: EOMI, PERRL - ENT Exam ENT Exam: Mucous Membranes Moist - Neck Exam Neck exam: Positive for: Normal Inspection - Respiratory Exam Respiratory Exam: NORMAL BREATHING PATTERN - GI/Abdominal Exam GI & Abdominal Exam: Soft. absent: Tenderness - Extremities Exam Additional comments: LLE: + tenderness over greater troch, no groin tenderness, mild swelling, no deformity, no lesions hip ROM restricted due to fx sensation intact SP/DP/TN motor intact EHL/FHL/TA/G pedal pulses intact compartments soft/NT RLE: no tenderness, no swelling, no def, no lesions sensation intact SP/DP/TN motor intact EHL/FHL/TA/G pedal pulses intact compartments soft/NT Results - Vital Signs Recent Vital Signs: Last Vital Signs Temp 98.2 F 02/17/18 07:42 Pulse 91 H 02/17/18 07:42 Resp 18 02/17/18 07:42 BP 160/99 H 02/17/18 07:42 Pulse Ox 100 02/17/18 07:42 - Labs Result Diagrams: 02/17/18 04:20 02/17/18 04:20 Labs: Laboratory Results - last 24 hr 02/15/18 02/16/18 02/17/18 22:40 07:50 04:20 WBC 10.2 RBC 3.19 L Hgb 9.9 L D Hct 28.7 L MCV 90.0 MCH 31.1 H MCHC 34.5 RDW 15.7 H Plt Count 504 H Sodium Potassium Chloride Carbon Dioxide Anion Gap BUN Creatinine Est GFR ( Amer) Est GFR (Non-Af Amer) Random Glucose Calcium Total Creatine Kinase 319 H Prolactin 6.6 Alcohol, Quantitative < 10 02/17/18 04:20 WBC RBC Hgb Hct MCV MCH MCHC RDW Plt Count Sodium 129 L Potassium 4.3 Chloride 95 L Carbon Dioxide 25 Anion Gap 13 BUN 7 L Creatinine 0.8 Est GFR ( Amer) > 60 Est GFR (Non-Af Amer) > 60 Random Glucose 103 Calcium 7.9 L Total Creatine Kinase Prolactin Alcohol, Quantitative - Impressions Impression: Accession No. : [id number] Patient Name / ID : ALBER HAWK / [id number] Exam Date : 02/16/2018 15:02:25 ( Approved ) Study Comment : Sex / Age : M / 58Y Creator : Ryan Hughes MD Dictator : Ryan Hughes MD Parts Counter Salesperson : Youth Nutritional Monitor : Ryan Hughes MD Approver2 : Report Date : 02/16/2018 15:57:14 My Comment : PROCEDURE: Radiographs of the pelvis and bilateral hips HISTORY: fall COMPARISON: None. FINDINGS: BONES: Pelvis: Unremarkable. Right hip:Unremarkable. Left hip:Nondisplaced incomplete intratrochanteric fracture. Nondisplaced fracture of the greater trochanter. JOINTS: Right hip: Unremarkable. Left hip: Unremarkable. Sacroiliac Joints: Unremarkable. Pubic symphysis: Unremarkable. SOFT TISSUES: Normal. OTHER FINDINGS: None. IMPRESSION: Nondisplaced incomplete left intertrochanteric fracture. Nondisplaced fracture of the left greater trochanter. Accession No. : [id number] Patient Name / ID : ALBER HAWK / [id number] Exam Date : 02/16/2018 17:20:33 ( Approved ) Study Comment : Sex / Age : M / 58Y Creator : luiz murry Dictator : Maxine Salter MD Parts Counter Salesperson : Youth Nutritional Monitor : Maxine Salter MD Approver2 : Report Date : 02/16/2018 17:41:47 My Comment : PROCEDURE: CT of the Left Hip. HISTORY: Left hip fx COMPARISON: Plain radiographs performed earlier the same day. TECHNIQUE: Contiguous axial images of the left hip were obtained. Coronal and sagittal reformats were generated. This CT exam was performed using one or more of the following dose reduction techniques: Automated exposure control, adjustment of the mA and/or kV according to patient size, and/or use of iterative reconstruction technique. FINDINGS: BONES: There is diffuse bone demineralization. There is an acute comminuted nondisplaced left intertrochanteric fracture. Bone alignment is normal. LEFT HIP JOINT: No dislocation. No degenerative changes. SOFT TISSUES: The periarticular muscles are normal. There is mild subcutaneous edema. IMPRESSION: Acute comminuted nondisplaced left intertrochanteric fracture. No dislocation. Assessment & Plan (1) Intertrochanteric fracture of right hip Assessment and Plan: -NWB -Recommend surgical fixation with intermedullary nail tomorrow AM -NPO pMN -type and screen -medical and cardiac clearance -spoke with Patient's son Maximino Juarez about patient's condition and plan for surgery. Risks and benefits were explained and he understands and will give consent for procedure. -consult appreciated -patient's case and plan d/w Dr. Palma in agreement Status: Acute
[2018-02-17] MEDS: Sodium Chloride 0.9% 1,000 ML IV SCH ×2 (08:32→20:35)
[2018-02-17] MEDS ORDERED: Enoxaparin 40 mg Syringe SC SCH (09:00)
[2018-02-17] MEDS: Divalproex 500 mg DR(BID formulation) PO SCH (09:25)
[2018-02-17] MEDS: Multivitamin With Minerals Tab PO SCH (09:25)
[2018-02-17] MEDS: Metoprolol Succinate 25 mg XL Tab PO SCH (09:26)
--- NOTE | 2018-02-17 14:14 | CARD ---
APPROVED REPORT EXAM: Two-dimensional and M-mode echocardiogram with Doppler and color Doppler. Other Information Quality : AverageRhythm : NSR INDICATION Dyspnea 2D DIMENSIONS IVSd1.30 (0.7-1.1cm)LVDd4.10 (3.9-5.9cm) PWd0.96 (0.7-1.1cm)IVSs1.38 (0.8-1.2cm) LVDs2.91 (2.5-4.0cm)FS (%) 29.1 % PWs1.09 (0.8-1.2cm) M-Mode DIMENSIONS Left Atrium (MM)3.56 (2.5-4.0cm)Aortic Root3.76 (2.2-3.7cm) Aortic Cusp Exc.1.68 (1.5-2.0cm) Mitral Valve MV E Yevqjmqu34.4cm/sMV DECEL [id number] A Wcsptrry81.1cm/s MV XKP79etW/A ratio1.1MVA (PHT)3.21cm2 TDI Lateral E' Peak V12.79cm/sMedial E' Peak V7.25cm/sE/Lateral E'6.3 E/Medial E'11.1 LEFT VENTRICLE The left ventricle is normal size. There is normal left ventricular wall thickness. Left ventricle systolic function is normal. The Ejection Fraction is 60-65%. There is normal LV segmental wall motion. Transmitral Doppler flow pattern is Grade I-abnormal relaxation pattern. RIGHT VENTRICLE The right ventricle is normal size. There is normal right ventricular wall thickness. The right ventricular systolic function is normal. ATRIA The left atrium size is normal. The right atrium size is normal. AORTIC VALVE The aortic valve is normal in structure. No aortic regurgitation is present. There is no aortic valvular stenosis. MITRAL VALVE The mitral valve is normal in structure. There is no evidence of mitral valve prolapse. There is no mitral valve stenosis. There is no mitral valve regurgitation noted. TRICUSPID VALVE The tricuspid valve is normal in structure. There is no tricuspid valve regurgitation noted. PULMONIC VALVE The pulmonary valve is normal in structure. There is no pulmonic valvular regurgitation. GREAT VESSELS The aortic root is normal in size. Due to poor image quality, the IVC could not be assessed. PERICARDIAL EFFUSION The pericardium appears normal. <Conclusion> The left ventricle is normal size. There is normal left ventricular wall thickness. There is normal LV segmental wall motion. Left ventricle systolic function is normal. The Ejection Fraction is 60-65%. Transmitral Doppler flow pattern is Grade I-abnormal relaxation pattern.
[2018-02-18] MEDS: Sodium Chloride 0.9% 1,000 ML IV SCH (04:33)
[2018-02-18] MEDS: Metoprolol Succinate 25 mg XL Tab PO SCH ×2 (05:47→09:19)
[2018-02-18 06:11] LABS: BASO # 0.1 K/uL (0.0-0.2); BASO % 1.4 % (0.0-2.0); EOS # 0.6 K/uL (0.0-0.7); EOS % 6.8 % (0.0-4.0); HEMOGLOBIN 11.3 g/dL (12.0-18.0); LYMPH # 1.2 K/uL (1.0-4.3); LYMPH % 13.1 % (20.0-40.0); MEAN CELL VOLUME 90.5 fl (80.0-94.0); MEAN CORPUSCULAR HEMOGLOBIN 31.2 pg (27.0-31.0); MEAN CORPUSCULAR HGB CONC 34.5 g/dL (33.0-37.0); MEAN PLATELET VOLUME 6.6 fl (7.2-11.7); MONO % 10.3 % (0.0-10.0); NEUT # 6.4 K/uL (1.8-7.0); NEUT % 68.4 % (50.0-75.0); RBC 3.63 Mil/uL (4.40-5.90); RED CELL DISTRIBUTION WIDTH 15.6 % (11.5-14.5); WHITE BLOOD COUNT 9.4 K/uL (4.8-10.8)
[2018-02-18 06:19] LABS: BLOOD UREA NITROGEN 6 mg/dl (9-20); CALCIUM 8.7 mg/dL (8.4-10.2); GFR AFRICAN-AMERICAN > 60; GFR NON-AFRICAN AMERICAN > 60
[2018-02-18 06:23] LABS: PROTHROMBIN TIME 11.2 Seconds (9.8-13.1)
[2018-02-18] MEDS ORDERED: Propofol 10 mg/ml Inj (20 ML) ONE (07:19)
[2018-02-18] MEDS ORDERED: Succinylcholine 200 mg/10 ml Inj IV ONE (07:19)
[2018-02-18] MEDS ORDERED: Midazolam 2 MG/2 ML VIAL ONE (07:19)
[2018-02-18] MEDS ORDERED: Lidocaine 1% 5ml Abboject IV ONE (07:20)
[2018-02-18] MEDS ORDERED: Rocuronium 10 mg/ml (5 ml) ONE (07:20)
[2018-02-18] MEDS ORDERED: Lidocaine 4% (Laryng-O-Jet) Kit MM ONE (07:20)
[2018-02-18] MEDS ORDERED: Sevoflurane - Inhalation Anesthetic Liq (250 ml) ONE (07:28)
--- NOTE | 2018-02-18 07:30 | CP.PCM.PN ---
Subjective - Date & Time of Evaluation Date of Evaluation: 02/18/18 Time of Evaluation: 08:00 - Subjective Subjective: Hemodynamically stable, afebrile No acute issues overnight pain is controlled For OR today NPO status maintained for surgery Labs reviewed . Hyponatremia/ Hypochloremia noted . On IV NS Objective - Vital Signs/Intake and Output Vital Signs (last 24 hours): Temp Pulse Resp BP Pulse Ox 98.7 F 86 18 139/84 100 02/18/18 07:00 02/18/18 07:00 02/18/18 07:00 02/18/18 07:00 02/18/18 07:00 - Medications Medications: Current Medications Acetaminophen (Tylenol 325mg Tab) 650 mg PO Q6 PRN PRN Reason: Pain, Mild (1-3) Last Admin: 02/17/18 22:14 Dose: 650 mg Amlodipine Besylate (Norvasc) 10 mg PO DAILY [facility] Last Admin: 02/17/18 09:26 Dose: 10 mg Divalproex Sodium (Depakote Dr(*Bid*)) 500 mg PO BID [facility] Last Admin: 02/17/18 09:25 Dose: 500 mg Folic Acid (Folic Acid) 1 mg PO DAILY [facility] Last Admin: 02/17/18 09:26 Dose: 1 mg Sodium Chloride (Sodium Chloride 0.9%) 1,000 mls @ 100 mls/hr IV .Q10H [facility] Stop: 02/18/18 07:56 Last Admin: 02/18/18 04:33 Dose: 100 mls/hr Lorazepam (Ativan) 1 mg PO TID PRN PRN Reason: withdrawal sx Memantine (Namenda) 10 mg PO Q12 [facility] Last Admin: 02/17/18 20:35 Dose: 10 mg Metoprolol Succinate (Toprol Xl) 25 mg PO DAILY [facility] Last Admin: 02/18/18 05:47 Dose: 25 mg Multivitamins/Minerals (Therapeutic-M Tab) 1 tab PO DAILY [facility] Last Admin: 02/17/18 09:25 Dose: 1 tab Thiamine HCl (Vitamin B1 Tab) 100 mg PO DAILY [facility] Last Admin: 02/17/18 09:27 Dose: 100 mg - Labs Labs: 02/18/18 04:25 02/18/18 04:25 PT 11.2 Seconds (9.8-13.1) 02/18/18 04:25 INR 1.0 (0.9-1.2) 02/18/18 04:25 - Constitutional Appears: Non-toxic, No Acute Distress, Older Than Stated Age - Head Exam Head Exam: ATRAUMATIC, NORMOCEPHALIC - Eye Exam Eye Exam: EOMI, Normal appearance, PERRL Pupil Exam: NORMAL ACCOMODATION - ENT Exam ENT Exam: Mucous Membranes Dry, Normal Exam - Neck Exam Neck Exam: Normal Inspection - Respiratory Exam Respiratory Exam: Clear to Ausculation Bilateral, NORMAL BREATHING PATTERN. absent: Rhonchi, Wheezes - Cardiovascular Exam Cardiovascular Exam: REGULAR RHYTHM, RRR, +S1, +S2. absent: JVD - GI/Abdominal Exam GI & Abdominal Exam: Soft, Normal Bowel Sounds. absent: Distended, Guarding, Tenderness, Rebound - Rectal Exam Rectal Exam: Deferred - Extremities Exam Extremities Exam: Full ROM, Normal Capillary Refill, Normal Inspection - Back Exam Back Exam: NORMAL INSPECTION - Neurological Exam Neurological Exam: Alert, Awake, CN II-XII Intact - Psychiatric Exam Psychiatric exam: Normal Affect - Skin Skin Exam: Dry, Warm Additional comments: LE multiple skin escoration Assessment and Plan - Assessment and Plan (Free Text) Assessment: 58 y/o male with PMH of EtOH abuse,seizure, HTN, and HLD brought to the ER after multiple falls and being found down in his apartment. He was in hospital just recently admitted on 02/04 for EtOH intoxication with seizures. In the hospital, he appeared to have several episodes of syncope/ seizures, and he was eventually started on depakote. He was discharged home in stable condition. Again he is brought to ER with ingestion of a large amount of EtOH and found down in his apt sitting in his feces Ct hip showed Acute comminuted nondisplaced left intertrochanteric fracture He was started on IVF , MVI, thiamine, Folic acid and seizure precautions. Ortho was consulted . Plan for OR today 1.Acute comminuted nondisplaced left intertrochanteric fracture Ortho consulted cardio clearance on chart For Or today NPO for surgery pain management and DVT prophylaxis as per ortho post op 2.Rhabdomyelysis secondary to falls improved with IVF continue IVF CPK trending down 3. Hyponatremia/ Hypocloremia most likely volume depletion continue NS @ 100 cc/hr Na 128 Check serum and urine osmolality 4.EtOH abuse/intoxication no signs of withdrawals or tremors Continue Thiamine, Folic acid ,MVi Denies drinking Withdrawal seizure precautions 5.EtOH w/d seizures Continue depakote 500 BID PRN ativan 6. Hypertension BP controlled Continue metoprolol and Norvasc cardiology consulted for preop clearance Echo showed normal EF and wall motion patient is low risk for surgery 7. Pancreas mass found on CT previously outpatient f/u 8. Mild Dementia on Namenda 9. Anemia most likely chronic monitor closely type and cross match preop 10. DVT PPx SCDs
[2018-02-18] MEDS ORDERED: EPINEPHrine 1 mg/ml (1:1000) Inj ONE (07:58)
[2018-02-18] MEDS ORDERED: Bupivacaine HCl 0.25% PF (30 ml) Inj ONE (08:01)
[2018-02-18] MEDS ORDERED: Lactated Ringer's 1,000 ML IV ONE (08:15)
[2018-02-18] MEDS: Divalproex 500 mg DR(BID formulation) PO SCH ×2 (09:17→16:04)
[2018-02-18] MEDS: Multivitamin With Minerals Tab PO SCH (09:18)
[2018-02-18] MEDS ORDERED: Neostigmine 1:1000 (1 mg/ml) Inj ONE (09:49)
[2018-02-18] MEDS ORDERED: Lactated Ringer's 1,000 ML IV SCH (10:30)
[2018-02-18] MEDS ORDERED: Trimethobenzamide 200 mg/2 mL Inj IM PRN (10:32)
--- NOTE | 2018-02-18 10:48 | CP.PCM.PN ---
Subjective - Date & Time of Evaluation Date of Evaluation: 02/18/18 Time of Evaluation: 10:34 - Subjective Subjective: LEFT FASCIA ILIACA BLOCK after discussing the risk and benefits of fascia Iliaca block patient agrees with the planned procedure. All questions answered. Patient was brought in the OR and standard ASA monitors was placed. Then patient given general anesthesia. While under, the left groin was aseptically prepared. Using ultrasound guidance , the transducer was placed just medial to the left anterior superior ischial spine diagonally towards the umbilicus. Fascia iliaca identified underneath the transversus abdominis muscle. Stimuplex 21G X 4 inch echogenic needle was introduced from caudal to cephalad on an in-plane trajectory. Needle tip was positioned underneath the fascia iliaca. After repeated negative aspiration, a total of 40ml of 0.25% Bupivacaine with 1:200,000 epinephrine was injected. Needle withdrawn without any complicatrion. Patient tolerated the procedure and prepared for the proposed surgery. Objective - Vital Signs/Intake and Output Vital Signs (last 24 hours): Temp Pulse Resp BP Pulse Ox 98.7 F 78 18 139/84 100 02/18/18 07:00 02/18/18 08:36 02/18/18 07:00 02/18/18 07:00 02/18/18 07:00 - Medications Medications: Current Medications Acetaminophen (Tylenol 325mg Tab) 650 mg PO Q6 PRN PRN Reason: Pain, Mild (1-3) Last Admin: 02/17/18 22:14 Dose: 650 mg Amlodipine Besylate (Norvasc) 10 mg PO DAILY [facility] Last Admin: 02/18/18 09:18 Dose: Not Given Divalproex Sodium (Depakote Dr(*Bid*)) 500 mg PO BID [facility] Last Admin: 02/18/18 09:17 Dose: Not Given Folic Acid (Folic Acid) 1 mg PO DAILY [facility] Last Admin: 02/18/18 09:18 Dose: Not Given Lactated Ringer's (Lactated Ringer's) 1,000 mls @ 100 mls/hr IV .Q10H [facility] Lorazepam (Ativan) 1 mg PO TID PRN PRN Reason: withdrawal sx Memantine (Namenda) 10 mg PO Q12 [facility] Last Admin: 02/18/18 09:18 Dose: Not Given Metoprolol Succinate (Toprol Xl) 25 mg PO DAILY [facility] Last Admin: 02/18/18 09:19 Dose: Not Given Morphine Sulfate (Morphine) 2 mg IVP Q10M PRN PRN Reason: Pain, moderate (4-7) Stop: 02/18/18 12:31 Multivitamins/Minerals (Therapeutic-M Tab) 1 tab PO DAILY [facility] Last Admin: 02/18/18 09:18 Dose: Not Given Ondansetron HCl (Zofran Inj) 4 mg IVP ONCE PRN PRN Reason: Nausea/Vomiting Stop: 02/18/18 12:31 Thiamine HCl (Vitamin B1 Tab) 100 mg PO DAILY [facility] Last Admin: 02/18/18 09:19 Dose: Not Given - Labs Labs: 02/18/18 04:25 02/18/18 04:25 PT 11.2 Seconds (9.8-13.1) 02/18/18 04:25 INR 1.0 (0.9-1.2) 02/18/18 04:25
--- NOTE | 2018-02-18 13:05 | RAD ---
PROCEDURE: LEFT FEMUR SERIES HISTORY: s/p L hip ORIF COMPARISON: None available. TECHNIQUE: Multiple frontal and lateral views the left femur have been submitted for interpretation. FINDINGS: PA seen to be status post open reduction internal fixation a proximal left femoral fracture by a lengthy intramedullary nail with proximal solitary and 2 distal cross linking members. Soft tissue changes are appreciated postoperatively as well as proximal lateral thigh skin georgie. Vascular calcifications are identified in the medial thigh soft tissues. IMPRESSION: Status ORIF proximal left femoral fracture as discussed above. Postoperative changes are identified in local soft tissues.
[2018-02-18] MEDS: ceFAZolin 1 GM in Sodium Chloride 0.9% 100 ML IVPB SCH (16:02)
[2018-02-18] MEDS: Lactated Ringer's 1,000 ML IV SCH (19:58)
--- NOTE | 2018-02-18 22:45 | PCM.SURG1 ---
Surgeon's Initial Post Op Note - Surgeon's Notes Surgeon: Molly Palma MD Lead Front Desk Agent: Haylie VALLECILLO Type of Anesthesia: General Endo, Block Regional Pre-Operative Diagnosis: Left hip IT fx Operative Findings: Left hip IT fx Post-Operative Diagnosis: Left hip IT fx Operation Performed: Left hip intertrochanteric hip fracture closed reduction and internal fixation with hip nail (long TFN) Specimen/Specimens Removed: specimen= none. complications= none. Implants= Synthes long TFNA, 11mm diam/410mm length, 100 mm helical blade, 2 distal interlocking screws Estimated Blood Loss: EBL {In ML}: 50 Blood Products Given: N/A Drains Used: No Drains, [place] Post-Op Condition: Good (no drains) Date of Surgery/Procedure: 02/18/18 Time of Surgery/Procedure: 10:00
[2018-02-19] MEDS: ceFAZolin 1 GM in Sodium Chloride 0.9% 100 ML IVPB SCH (00:37)
[2018-02-19] MEDS: Lactated Ringer's 1,000 ML IV SCH ×2 (06:35→10:18)
[2018-02-19 07:53] LABS: HEMOGLOBIN 9.2 g/dL (12.0-18.0); MEAN CELL VOLUME 90.1 fl (80.0-94.0); MEAN CORPUSCULAR HGB CONC 34.4 g/dL (33.0-37.0); RBC 2.98 Mil/uL (4.40-5.90); RED CELL DISTRIBUTION WIDTH 15.2 % (11.5-14.5); WHITE BLOOD COUNT 12.4 K/uL (4.8-10.8)
[2018-02-19 08:19] LABS: BLOOD UREA NITROGEN 5 mg/dl (9-20); CALCIUM 8.2 mg/dL (8.4-10.2); GFR AFRICAN-AMERICAN > 60; GFR NON-AFRICAN AMERICAN > 60
[2018-02-19] MEDS: Multivitamin With Minerals Tab PO SCH (08:49)
[2018-02-19] MEDS: Divalproex 500 mg DR(BID formulation) PO SCH ×2 (08:50→16:54)
[2018-02-19] MEDS: Metoprolol Succinate 25 mg XL Tab PO SCH (08:51)
[2018-02-19] MEDS: Enoxaparin 40 mg Syringe SC SCH (08:52)
[2018-02-19] MEDS: Oxycodone/Acetaminophen 5/325 mg Tab PO PRN (11:08)
[2018-02-19] MEDS: Sodium Chloride 0.9% 1,000 ML IV SCH ×2 (11:11→22:41)
--- NOTE | 2018-02-19 12:49 | CP.PCM.PN ---
Subjective - Date & Time of Evaluation Date of Evaluation: 02/19/18 Time of Evaluation: 11:30 - Subjective Subjective: Low grade fever pain controlled no signs of withdrawal denies headache no CP no SOB no abd pain Objective - Vital Signs/Intake and Output Vital Signs (last 24 hours): Temp Pulse Resp BP Pulse Ox 100.5 F H 97 H 18 118/72 96 02/19/18 12:29 02/19/18 12:25 02/19/18 12:25 02/19/18 12:25 02/19/18 12:25 Intake and Output: 02/19/18 02/19/18 06:59 18:59 Intake Total 1715 Output Total 1100 Balance 615 - Medications Medications: Current Medications Acetaminophen (Tylenol 325mg Tab) 650 mg PO Q6 PRN PRN Reason: Pain, Mild (1-3) Last Admin: 02/18/18 14:58 Dose: 650 mg Acetaminophen (Tylenol 325mg Tab) 650 mg PO Q6 PRN PRN Reason: Fever >100.4 F Last Admin: 02/19/18 12:29 Dose: 650 mg Amlodipine Besylate (Norvasc) 10 mg PO DAILY [facility] Last Admin: 02/19/18 08:50 Dose: 10 mg Divalproex Sodium (Depakote Dr(*Bid*)) 500 mg PO BID [facility] Last Admin: 02/19/18 08:50 Dose: 500 mg Docusate Sodium (Colace) 100 mg PO BID [facility] Last Admin: 02/19/18 08:50 Dose: 100 mg Enoxaparin Sodium (Lovenox) 40 mg SC DAILY [facility] PRN Reason: Protocol Last Admin: 02/19/18 08:52 Dose: 40 mg Ferrous Sulfate (Feosol) 325 mg PO BID [facility] Last Admin: 02/19/18 11:10 Dose: 325 mg Folic Acid (Folic Acid) 1 mg PO DAILY [facility] Last Admin: 02/19/18 08:52 Dose: 1 mg Sodium Chloride (Sodium Chloride 0.9%) 1,000 mls @ 100 mls/hr IV .Q10H [facility] Stop: 02/20/18 10:33 Last Admin: 02/19/18 11:11 Dose: 100 mls/hr Lorazepam (Ativan) 1 mg PO TID PRN PRN Reason: withdrawal sx Last Admin: 02/18/18 20:58 Dose: 1 mg Metoprolol Succinate (Toprol Xl) 25 mg PO DAILY [facility] Last Admin: 02/19/18 08:51 Dose: 25 mg Morphine Sulfate (Morphine) 2 mg IVP Q4 PRN PRN Reason: Pain, severe (8-10) Last Admin: 02/19/18 06:35 Dose: 2 mg Multivitamins/Minerals (Therapeutic-M Tab) 1 tab PO DAILY [facility] Last Admin: 02/19/18 08:49 Dose: 1 tab Oxycodone/Acetaminophen (Percocet 5/325 Mg Tab) 2 tab PO Q4 PRN PRN Reason: Pain, severe (8-10) Stop: 02/21/18 10:33 Last Admin: 02/19/18 11:08 Dose: 2 tab Thiamine HCl (Vitamin B1 Tab) 100 mg PO DAILY [facility] Last Admin: 02/19/18 08:51 Dose: 100 mg Trimethobenzamide HCl (Tigan) 200 mg IM Q8 PRN PRN Reason: Nausea/Vomiting - Labs Labs: 02/19/18 07:41 02/19/18 07:41 PT 11.2 Seconds (9.8-13.1) 02/18/18 04:25 INR 1.0 (0.9-1.2) 02/18/18 04:25 - Constitutional Appears: No Acute Distress, Chronically Ill - Head Exam Head Exam: NORMAL INSPECTION, NORMOCEPHALIC - Eye Exam Eye Exam: EOMI, Normal appearance Pupil Exam: NORMAL ACCOMODATION - ENT Exam ENT Exam: Mucous Membranes Moist, Normal External Ear Exam - Neck Exam Neck Exam: Full ROM. absent: Meningismus - Respiratory Exam Respiratory Exam: absent: Respiratory Distress, NORMAL BREATHING PATTERN - Cardiovascular Exam Cardiovascular Exam: REGULAR RHYTHM, +S1, +S2 - GI/Abdominal Exam GI & Abdominal Exam: Soft, Normal Bowel Sounds. absent: Tenderness - Extremities Exam Extremities Exam: Normal Capillary Refill. absent: Calf Tenderness, Pedal Edema Additional comments: left hip with dressing - Neurological Exam Neurological Exam: Alert, Awake Additional comments: oriented to person and place - Psychiatric Exam Psychiatric exam: Normal Affect, Normal Mood - Skin Skin Exam: Dry, Normal Color, Warm Assessment and Plan - Assessment and Plan (Free Text) Assessment: 58 y/o male with PMH of EtOH abuse,seizure, HTN, and HLD brought to the ER after multiple falls and being found down in his apartment. He was in hospital just recently admitted on 02/04 for EtOH intoxication with seizures. In the hospital, he appeared to have several episodes of syncope/ seizures, and he was eventually started on depakote. He was discharged home in stable condition. Again he is brought to ER with ingestion of a large amount of EtOH and found down in his apt sitting in his feces Ct hip showed Acute comminuted nondisplaced left intertrochanteric fracture He was started on IVF , MVI, thiamine, Folic acid and seizure precautions. Ortho was consulted . Had Closed Reduction and Int Fixation 02/18. 1.Acute comminuted nondisplaced left intertrochanteric fracture s/p Reduction and Int Fixation Ortho following pt pain management and DVT prophylaxis PT/OT consult - plan for d/c to [facility] in am 2.Rhabdomyolysis secondary to falls improved with IVF continue IVF CPK trending down 3. Hyponatremia/ Hypochloremia most likely volume depletion, and low solute intake and noticed polydipsia Fluid restriction continue NS @ 100 cc/hr Na 128 Low serum and urine osmolality fluid restriction 4.EtOH abuse/intoxication no signs of withdrawals or tremors Continue Thiamine, Folic acid ,MVi Denies drinking Withdrawal seizure precautions 5.EtOH w/d seizures Continue depakote 500 BID PRN ativan 6. Hypertension BP controlled Continue metoprolol and Norvasc cardiology consulted for preop clearance Echo showed normal EF and wall motion 7. Pancreas mass found on CT previously outpatient f/u 8. Mild Dementia hold Namenda for now 9. Anemia most likely chronic monitor closely 10. DVT PPx SCDs Lovenox
--- NOTE | 2018-02-19 12:50 | CP.PCM.PN ---
Subjective - Date & Time of Evaluation Date of Evaluation: 02/19/18 Time of Evaluation: 12:00 - Subjective Subjective: Patient was seen and examined at bedside comfortable. Pain well controlled. Tavo diet. Pos void, neg BM. No acute events overnight. Objective - Vital Signs/Intake and Output Vital Signs (last 24 hours): Temp Pulse Resp BP Pulse Ox 100.5 F H 97 H 18 118/72 96 02/19/18 12:29 02/19/18 12:25 02/19/18 12:25 02/19/18 12:25 02/19/18 12:25 Intake and Output: 02/19/18 02/19/18 06:59 18:59 Intake Total 1715 Output Total 1100 Balance 615 - Medications Medications: Current Medications Acetaminophen (Tylenol 325mg Tab) 650 mg PO Q6 PRN PRN Reason: Pain, Mild (1-3) Last Admin: 02/18/18 14:58 Dose: 650 mg Acetaminophen (Tylenol 325mg Tab) 650 mg PO Q6 PRN PRN Reason: Fever >100.4 F Last Admin: 02/19/18 12:29 Dose: 650 mg Amlodipine Besylate (Norvasc) 10 mg PO DAILY [facility] Last Admin: 02/19/18 08:50 Dose: 10 mg Divalproex Sodium (Depakote Dr(*Bid*)) 500 mg PO BID [facility] Last Admin: 02/19/18 08:50 Dose: 500 mg Docusate Sodium (Colace) 100 mg PO BID [facility] Last Admin: 02/19/18 08:50 Dose: 100 mg Enoxaparin Sodium (Lovenox) 40 mg SC DAILY [facility] PRN Reason: Protocol Last Admin: 02/19/18 08:52 Dose: 40 mg Ferrous Sulfate (Feosol) 325 mg PO BID [facility] Last Admin: 02/19/18 11:10 Dose: 325 mg Folic Acid (Folic Acid) 1 mg PO DAILY [facility] Last Admin: 02/19/18 08:52 Dose: 1 mg Sodium Chloride (Sodium Chloride 0.9%) 1,000 mls @ 100 mls/hr IV .Q10H [facility] Stop: 02/20/18 10:33 Last Admin: 02/19/18 11:11 Dose: 100 mls/hr Lorazepam (Ativan) 1 mg PO TID PRN PRN Reason: withdrawal sx Last Admin: 02/18/18 20:58 Dose: 1 mg Metoprolol Succinate (Toprol Xl) 25 mg PO DAILY [facility] Last Admin: 02/19/18 08:51 Dose: 25 mg Morphine Sulfate (Morphine) 2 mg IVP Q4 PRN PRN Reason: Pain, severe (8-10) Last Admin: 02/19/18 06:35 Dose: 2 mg Multivitamins/Minerals (Therapeutic-M Tab) 1 tab PO DAILY [facility] Last Admin: 02/19/18 08:49 Dose: 1 tab Oxycodone/Acetaminophen (Percocet 5/325 Mg Tab) 2 tab PO Q4 PRN PRN Reason: Pain, severe (8-10) Stop: 02/21/18 10:33 Last Admin: 02/19/18 11:08 Dose: 2 tab Thiamine HCl (Vitamin B1 Tab) 100 mg PO DAILY [facility] Last Admin: 02/19/18 08:51 Dose: 100 mg Trimethobenzamide HCl (Tigan) 200 mg IM Q8 PRN PRN Reason: Nausea/Vomiting - Labs Labs: 02/19/18 07:41 02/19/18 07:41 PT 11.2 Seconds (9.8-13.1) 02/18/18 04:25 INR 1.0 (0.9-1.2) 02/18/18 04:25 - Extremities Exam Additional comments: LLE: dresssings c/d/i, mild tenderness about wounds, mild to mod swelling hip ROM limited 2nd to surgery sensation intact SP/DP/TN motor intact EHL/FHL/TA/G pedal pulses intact compartments soft/NT Assessment and Plan (1) Intertrochanteric fracture of right hip Assessment & Plan: POD#1 s/p L hip IT fx IM nailing -pain control -PT/OT WBAT -care as per medicine -d/c planning -above d/w Dr. Narciso Ellis in agreement Status: Acute
--- NOTE | 2018-02-19 13:50 | RAD ---
PROCEDURE: Open reduction internal fixation HISTORY: Left femoral fracture COMPARISON: 02/18/2018 TECHNIQUE: Standard protocol for this study/examination. FINDINGS: Total fluoroscopic time (continuous mode) utilized during the procedure 268.4 (seconds). Total exam DLP: (mGy) 27.48 IMPRESSION: Submitted images from the current procedure: Greater than 10
[2018-02-19 17:27] LABS: BLOOD UREA NITROGEN 5 mg/dl (9-20); CALCIUM 8.3 mg/dL (8.4-10.2); GFR AFRICAN-AMERICAN > 60; GFR NON-AFRICAN AMERICAN > 60
[2018-02-20] MEDS: Sodium Chloride 0.9% 1,000 ML IV SCH (05:52)
[2018-02-20 06:19] LABS: HEMOGLOBIN 9.2 g/dL (12.0-18.0); MEAN CELL VOLUME 89.6 fl (80.0-94.0); MEAN CORPUSCULAR HEMOGLOBIN 29.8 pg (27.0-31.0); MEAN CORPUSCULAR HGB CONC 33.3 g/dL (33.0-37.0); RBC 3.09 Mil/uL (4.40-5.90); RED CELL DISTRIBUTION WIDTH 15.4 % (11.5-14.5); WHITE BLOOD COUNT 16.1 K/uL (4.8-10.8)
[2018-02-20 06:52] LABS: BLOOD UREA NITROGEN 5 mg/dl (9-20); CALCIUM 8.2 mg/dL (8.4-10.2); GFR AFRICAN-AMERICAN > 60; GFR NON-AFRICAN AMERICAN > 60
[2018-02-20] MEDS: Oxycodone/Acetaminophen 5/325 mg Tab PO PRN ×3 (07:58→20:23)
[2018-02-20] MEDS: Divalproex 500 mg DR(BID formulation) PO SCH ×2 (08:05→17:06)
[2018-02-20] MEDS: Enoxaparin 40 mg Syringe SC SCH (08:07)
[2018-02-20] MEDS: Multivitamin With Minerals Tab PO SCH (08:08)
[2018-02-20] MEDS: Metoprolol Succinate 25 mg XL Tab PO SCH (08:08)
--- NOTE | 2018-02-20 09:53 | CP.PCM.PN ---
Subjective - Date & Time of Evaluation Date of Evaluation: 02/20/18 Time of Evaluation: 09:00 - Subjective Subjective: Patient states pain is improving. Strongly encouraged rehab placement. Deneis CP /SOB/dizziness. Objective - Vital Signs/Intake and Output Vital Signs (last 24 hours): Temp Pulse Resp BP Pulse Ox 99.4 F 98 H 18 138/80 99 02/20/18 08:00 02/20/18 08:08 02/20/18 08:00 02/20/18 08:08 02/20/18 08:00 - Medications Medications: Current Medications Acetaminophen (Tylenol 325mg Tab) 650 mg PO Q6 PRN PRN Reason: Pain, Mild (1-3) Last Admin: 02/18/18 14:58 Dose: 650 mg Acetaminophen (Tylenol 325mg Tab) 650 mg PO Q6 PRN PRN Reason: Fever >100.4 F Last Admin: 02/19/18 12:29 Dose: 650 mg Amlodipine Besylate (Norvasc) 10 mg PO DAILY [facility] Last Admin: 02/20/18 08:07 Dose: 10 mg Divalproex Sodium (Depakote Dr(*Bid*)) 500 mg PO BID [facility] Last Admin: 02/20/18 08:05 Dose: 500 mg Docusate Sodium (Colace) 100 mg PO BID [facility] Last Admin: 02/20/18 08:04 Dose: 100 mg Enoxaparin Sodium (Lovenox) 40 mg SC DAILY [facility] PRN Reason: Protocol Last Admin: 02/20/18 08:07 Dose: 40 mg Ferrous Sulfate (Feosol) 325 mg PO BID [facility] Last Admin: 02/20/18 08:06 Dose: 325 mg Folic Acid (Folic Acid) 1 mg PO DAILY [facility] Last Admin: 02/20/18 08:07 Dose: 1 mg Lorazepam (Ativan) 1 mg PO TID PRN PRN Reason: withdrawal sx Last Admin: 02/18/18 20:58 Dose: 1 mg Metoprolol Succinate (Toprol Xl) 25 mg PO DAILY [facility] Last Admin: 02/20/18 08:08 Dose: 25 mg Morphine Sulfate (Morphine) 2 mg IVP Q4 PRN PRN Reason: Pain, severe (8-10) Last Admin: 02/19/18 06:35 Dose: 2 mg Multivitamins/Minerals (Therapeutic-M Tab) 1 tab PO DAILY [facility] Last Admin: 02/20/18 08:08 Dose: 1 tab Oxycodone/Acetaminophen (Percocet 5/325 Mg Tab) 2 tab PO Q4 PRN PRN Reason: Pain, severe (8-10) Stop: 02/21/18 10:33 Last Admin: 02/20/18 07:58 Dose: 2 tab Thiamine HCl (Vitamin B1 Tab) 100 mg PO DAILY [facility] Last Admin: 02/19/18 08:51 Dose: 100 mg Trimethobenzamide HCl (Tigan) 200 mg IM Q8 PRN PRN Reason: Nausea/Vomiting - Labs Labs: 02/20/18 05:35 02/20/18 05:35 PT 11.2 Seconds (9.8-13.1) 02/18/18 04:25 INR 1.0 (0.9-1.2) 02/18/18 04:25 - Extremities Exam Additional comments: left hip: incisions intact, dry, no erythema, thigh soft minimal swelling calves osft NT negh omans +ROM ankle/toes, sensation intact, PT notes appreciated, sensation itnact Assessment and Plan (1) Closed intertrochanteric fracture of left hip Assessment & Plan: POD# 2 s/p left hip CR/long IM nailing -ortho stable for rehab continue PT/OT cont VTE proph encourage OOB f/u Dr. Abel 7-10 days call for appointment d/w Dr. Abel, agrees with above Status: Acute
[2018-02-20 14:25] LABS: HEMOGLOBIN 9.1 g/dL (12.0-18.0); MEAN CORPUSCULAR HEMOGLOBIN 29.6 pg (27.0-31.0); MEAN CORPUSCULAR HGB CONC 32.5 g/dL (33.0-37.0); RBC 3.1 Mil/uL (4.40-5.90); RED CELL DISTRIBUTION WIDTH 15.9 % (11.5-14.5); WHITE BLOOD COUNT 15.4 K/uL (4.8-10.8)
[2018-02-20 15:05] LABS: BLOOD UREA NITROGEN 7 mg/dl (9-20); CALCIUM 8.3 mg/dL (8.4-10.2); GFR AFRICAN-AMERICAN > 60; GFR NON-AFRICAN AMERICAN > 60
--- NOTE | 2018-02-20 17:50 | CP.PCM.PN ---
Subjective - Date & Time of Evaluation Date of Evaluation: 02/20/18 Time of Evaluation: 10:00 - Subjective Subjective: Pt's post op pain is controlled no signs of ETOH withdrawal awaiting [facility] placement denies CP no SOB no abd pain Pt is noncompliant with Fluid restriction Objective - Vital Signs/Intake and Output Vital Signs (last 24 hours): Temp Pulse Resp BP Pulse Ox 98.2 F 88 18 108/70 100 02/20/18 15:33 02/20/18 15:33 02/20/18 15:33 02/20/18 15:33 02/20/18 15:33 - Medications Medications: Current Medications Acetaminophen (Tylenol 325mg Tab) 650 mg PO Q6 PRN PRN Reason: Pain, Mild (1-3) Last Admin: 02/18/18 14:58 Dose: 650 mg Acetaminophen (Tylenol 325mg Tab) 650 mg PO Q6 PRN PRN Reason: Fever >100.4 F Last Admin: 02/19/18 12:29 Dose: 650 mg Amlodipine Besylate (Norvasc) 10 mg PO DAILY [facility] Last Admin: 02/20/18 08:07 Dose: 10 mg Divalproex Sodium (Depakote Dr(*Bid*)) 500 mg PO BID [facility] Last Admin: 02/20/18 17:06 Dose: 500 mg Docusate Sodium (Colace) 100 mg PO BID [facility] Last Admin: 02/20/18 17:05 Dose: 100 mg Enoxaparin Sodium (Lovenox) 40 mg SC DAILY [facility] PRN Reason: Protocol Last Admin: 02/20/18 08:07 Dose: 40 mg Ferrous Sulfate (Feosol) 325 mg PO BID [facility] Last Admin: 02/20/18 17:05 Dose: 325 mg Folic Acid (Folic Acid) 1 mg PO DAILY [facility] Last Admin: 02/20/18 08:07 Dose: 1 mg Lactic Acid (Lac-Hydrin 12% Lotion (225 G)) 1 applic TOP TID [facility] Last Admin: 02/20/18 17:05 Dose: 1 applic Metoprolol Succinate (Toprol Xl) 25 mg PO DAILY [facility] Last Admin: 02/20/18 08:08 Dose: 25 mg Morphine Sulfate (Morphine) 2 mg IVP Q4 PRN PRN Reason: Pain, severe (8-10) Last Admin: 02/19/18 06:35 Dose: 2 mg Multivitamins/Minerals (Therapeutic-M Tab) 1 tab PO DAILY [facility] Last Admin: 02/20/18 08:08 Dose: 1 tab Nicotine (Nicoderm Cq) 1 patch TD DAILY [facility] Last Admin: 02/20/18 15:49 Dose: 1 patch Oxycodone/Acetaminophen (Percocet 5/325 Mg Tab) 2 tab PO Q4 PRN PRN Reason: Pain, severe (8-10) Stop: 02/21/18 10:33 Last Admin: 02/20/18 12:13 Dose: 2 tab Sodium Chloride (Sodium Chloride Tab) 1 gm PO DAILY [facility] Last Admin: 02/20/18 17:06 Dose: 1 gm Thiamine HCl (Vitamin B1 Tab) 100 mg PO DAILY [facility] Last Admin: 02/20/18 10:35 Dose: 100 mg Trimethobenzamide HCl (Tigan) 200 mg IM Q8 PRN PRN Reason: Nausea/Vomiting - Labs Labs: 02/20/18 13:39 02/20/18 13:39 PT 11.2 Seconds (9.8-13.1) 02/18/18 04:25 INR 1.0 (0.9-1.2) 02/18/18 04:25 - Constitutional Appears: No Acute Distress, Chronically Ill - Head Exam Head Exam: NORMAL INSPECTION, NORMOCEPHALIC - Eye Exam Eye Exam: EOMI, Normal appearance Pupil Exam: NORMAL ACCOMODATION - ENT Exam ENT Exam: Mucous Membranes Moist, Normal External Ear Exam - Neck Exam Neck Exam: Full ROM. absent: Meningismus - Respiratory Exam Respiratory Exam: absent: Respiratory Distress, NORMAL BREATHING PATTERN - Cardiovascular Exam Cardiovascular Exam: REGULAR RHYTHM, +S1, +S2 - GI/Abdominal Exam GI & Abdominal Exam: Soft, Normal Bowel Sounds. absent: Tenderness - Extremities Exam Extremities Exam: Normal Capillary Refill. absent: Calf Tenderness, Pedal Edema Additional comments: left hip with dressing - Neurological Exam Neurological Exam: Alert, Awake Additional comments: oriented to person and place - Psychiatric Exam Psychiatric exam: Normal Affect, Normal Mood - Skin Skin Exam: Dry, scaly, Normal Color, Warm Assessment and Plan - Assessment and Plan (Free Text) Assessment: 58 y/o male with PMH of EtOH abuse,seizure, HTN, and HLD brought to the ER after multiple falls and being found down in his apartment. He was in hospital just recently admitted on 02/04 for EtOH intoxication with seizures. In the hospital, he appeared to have several episodes of syncope/ seizures, and he was eventually started on depakote. He was discharged home in stable condition. Again he is brought to ER with ingestion of a large amount of EtOH and found down in his apt sitting in his feces Ct hip showed Acute comminuted nondisplaced left intertrochanteric fracture He was started on IVF , MVI, thiamine, Folic acid and seizure precautions. Ortho was consulted . Had Closed Reduction and Int Fixation 02/18. 1.Acute comminuted nondisplaced left intertrochanteric fracture s/p Reduction and Int Fixation Ortho following pt pain management and DVT prophylaxis PT/OT consulted plan for d/c to [facility] -awaiting insurance approval 2.Rhabdomyolysis secondary to falls improved with IVF continue IVF CPK trending down 3. Hyponatremia/ Hypochloremia most likely SIADH from stress of surgery, volume depletion, and low solute intake and also noticed polydipsia Fluid restriction - pt noncompliant - I had observed him drinking water from pitcher Na 128 Low serum and urine osmolality start Salt Tablet 4.EtOH abuse/intoxication no signs of withdrawals or tremors Continue Thiamine, Folic acid ,MVi ETOH level elevated on admission Withdrawal seizure precautions 5.EtOH w/ hx seizures Continue depakote 500 BID PRN ativan 6. Hypertension BP controlled Continue metoprolol and Norvasc cardiology consulted for preop clearance Echo showed normal EF and wall motion 7. Pancreas mass found on CT previously pt was seen by GI - likely Pancreatic cyst due to ETOH abuse - ff up with GI as outpt 8. Mild Dementia likely sec to ETOH 9. Anemia, chronic monitor 10. Dry SKin , bucky on LE - start Lac Hydrin lotion 10. DVT PPx SCDs Lovenox
[2018-02-21] MEDS: Oxycodone/Acetaminophen 5/325 mg Tab PO PRN ×3 (05:57→16:52)
--- NOTE | 2018-02-21 07:27 | CP.PCM.PN ---
Subjective - Date & Time of Evaluation Date of Evaluation: 02/21/18 Time of Evaluation: 10:00 - Subjective Subjective: Patient seen and examined. Sitting comfortably in chair in NAD. Hemodynamically stable, tachycardic HR 101. Pain is controlled No tremors or signs of withdrawal Tmax 99.9 WBC 14 K No acute issues overnight Confused at times reoriented easily Objective - Vital Signs/Intake and Output Vital Signs (last 24 hours): Temp Pulse Resp BP Pulse Ox 98.7 F 108 H 18 133/78 97 02/21/18 04:57 02/21/18 04:57 02/21/18 04:57 02/21/18 04:57 02/21/18 04:57 - Medications Medications: Current Medications Acetaminophen (Tylenol 325mg Tab) 650 mg PO Q6 PRN PRN Reason: Pain, Mild (1-3) Last Admin: 02/18/18 14:58 Dose: 650 mg Acetaminophen (Tylenol 325mg Tab) 650 mg PO Q6 PRN PRN Reason: Fever >100.4 F Last Admin: 02/19/18 12:29 Dose: 650 mg Amlodipine Besylate (Norvasc) 10 mg PO DAILY [facility] Last Admin: 02/20/18 08:07 Dose: 10 mg Divalproex Sodium (Depakote Dr(*Bid*)) 500 mg PO BID [facility] Last Admin: 02/20/18 17:06 Dose: 500 mg Docusate Sodium (Colace) 100 mg PO BID [facility] Last Admin: 02/20/18 17:05 Dose: 100 mg Enoxaparin Sodium (Lovenox) 40 mg SC DAILY [facility] PRN Reason: Protocol Last Admin: 02/20/18 08:07 Dose: 40 mg Ferrous Sulfate (Feosol) 325 mg PO BID [facility] Last Admin: 02/20/18 17:05 Dose: 325 mg Folic Acid (Folic Acid) 1 mg PO DAILY [facility] Last Admin: 02/20/18 08:07 Dose: 1 mg Lactic Acid (Lac-Hydrin 12% Lotion (225 G)) 1 applic TOP TID [facility] Last Admin: 02/20/18 17:05 Dose: 1 applic Metoprolol Succinate (Toprol Xl) 25 mg PO DAILY [facility] Last Admin: 02/20/18 08:08 Dose: 25 mg Morphine Sulfate (Morphine) 2 mg IVP Q4 PRN PRN Reason: Pain, severe (8-10) Last Admin: 02/19/18 06:35 Dose: 2 mg Multivitamins/Minerals (Therapeutic-M Tab) 1 tab PO DAILY [facility] Last Admin: 02/20/18 08:08 Dose: 1 tab Nicotine (Nicoderm Cq) 1 patch TD DAILY [facility] Last Admin: 02/20/18 15:49 Dose: 1 patch Oxycodone/Acetaminophen (Percocet 5/325 Mg Tab) 2 tab PO Q4 PRN PRN Reason: Pain, severe (8-10) Stop: 02/21/18 10:33 Last Admin: 02/21/18 05:57 Dose: 2 tab Sodium Chloride (Sodium Chloride Tab) 1 gm PO DAILY [facility] Last Admin: 02/20/18 17:06 Dose: 1 gm Thiamine HCl (Vitamin B1 Tab) 100 mg PO DAILY [facility] Last Admin: 02/20/18 10:35 Dose: 100 mg Trimethobenzamide HCl (Tigan) 200 mg IM Q8 PRN PRN Reason: Nausea/Vomiting - Labs Labs: 02/20/18 13:39 02/20/18 13:39 PT 11.2 Seconds (9.8-13.1) 02/18/18 04:25 INR 1.0 (0.9-1.2) 02/18/18 04:25 - Constitutional Appears: Non-toxic, No Acute Distress, Older Than Stated Age - Head Exam Head Exam: ATRAUMATIC, NORMAL INSPECTION, NORMOCEPHALIC - Eye Exam Eye Exam: EOMI, PERRL Pupil Exam: NORMAL ACCOMODATION - ENT Exam ENT Exam: Mucous Membranes Moist, Normal Exam - Neck Exam Neck Exam: Full ROM, Normal Inspection - Respiratory Exam Respiratory Exam: Clear to Ausculation Bilateral, Rales (bibasilar), NORMAL BREATHING PATTERN. absent: Rhonchi, Wheezes, Respiratory Distress - Cardiovascular Exam Cardiovascular Exam: Tachycardia. absent: JVD - GI/Abdominal Exam GI & Abdominal Exam: Soft, Normal Bowel Sounds. absent: Distended, Guarding, Tenderness, Rebound - Rectal Exam Rectal Exam: Deferred - Extremities Exam Extremities Exam: absent: Pedal Edema Additional comments: left hip georgie in place ,intact, healing well - Back Exam Back Exam: NORMAL INSPECTION - Neurological Exam Neurological Exam: Alert, Awake, CN II-XII Intact Additional comments: confused at times but easily reoriented - Psychiatric Exam Psychiatric exam: Normal Affect - Skin Skin Exam: Dry, Warm Additional comments: multiple scratch hampton to LE Assessment and Plan - Assessment and Plan (Free Text) Assessment: 58 y/o male with PMH of EtOH abuse,seizure, HTN, and HLD brought to the ER after multiple falls and being found down in his apartment. He was in hospital just recently admitted on 02/04 for EtOH intoxication with seizures. In the hospital, he appeared to have several episodes of syncope/ seizures, and he was eventually started on depakote. He was discharged home in stable condition. Again he is brought to ER with ingestion of a large amount of EtOH and found down in his apt sitting in his feces Ct hip showed Acute comminuted nondisplaced left intertrochanteric fracture He was started on IVF , MVI, thiamine, Folic acid and seizure precautions. Ortho was consulted . Had Closed Reduction and Internal Fixation of left hip on 02/18. At present waiting for transfer to [facility] 1.Acute comminuted nondisplaced left intertrochanteric fracture s/p Reduction and Internal Fixation Ortho following pt pain is controlled Wound with georgie healing well Fall precautions DVT prophylaxis with Lovenox plan for d/c to [facility] after insurance approval Continue Ptr while in house 2.Rhabdomyolysis secondary to falls improved with IVF d/c IVF CPK trended down 3. Hyponatremia/ Hypochloremia most likely SIADH from stress of surgery, volume depletion, and low solute intake and also noticed polydipsia Start Fluid restriction 1.2 L / day Low serum and urine osmolality started Salt Tablets 4.EtOH abuse/intoxication no signs of withdrawals or tremors Continue Thiamine, Folic acid ,MVi ETOH levels were elevated on admission Withdrawal/ seizure precautions 5.EtOH w/ hx seizures Continue depakote 500 BID PRN ativan 6. Hypertension BP controlled Continue metoprolol and Norvasc cardiology consulted for preop clearance Echo showed normal EF and wall motion 7. Pancreas mass found on CT previously pt was seen by GI - likely Pancreatic cyst due to ETOH abuse - ff up with GI as outpt 8. Mild Dementia likely sec to ETOH confused at times but easily redirected 9. Anemia, chronic monitor stable Hgb 9.2 10. Leukocytosis Most likely reactive Monitor for now CXR , UA Tmax 99.9 promote use of incentive spirometry 11. Dry SKin , bucky on LE Lac Hydrin lotion 12. DVT PPx SCDs Lovenox
[2018-02-21 08:56] LABS: BLOOD UREA NITROGEN 6 mg/dl (9-20); CALCIUM 8.3 mg/dL (8.4-10.2); GFR AFRICAN-AMERICAN > 60; GFR NON-AFRICAN AMERICAN > 60
[2018-02-21 08:58] LABS: HEMOGLOBIN 9.2 g/dL (12.0-18.0); MEAN CELL VOLUME 91.4 fl (80.0-94.0); MEAN CORPUSCULAR HEMOGLOBIN 30.5 pg (27.0-31.0); MEAN CORPUSCULAR HGB CONC 33.4 g/dL (33.0-37.0); RED CELL DISTRIBUTION WIDTH 15.5 % (11.5-14.5); WHITE BLOOD COUNT 14.7 K/uL (4.8-10.8)
[2018-02-21] MEDS: Divalproex 500 mg DR(BID formulation) PO SCH ×2 (09:36→16:55)
[2018-02-21] MEDS: Enoxaparin 40 mg Syringe SC SCH (09:37)
[2018-02-21] MEDS: Metoprolol Succinate 25 mg XL Tab PO SCH (09:38)
[2018-02-21] MEDS: Multivitamin With Minerals Tab PO SCH (09:39)
[2018-02-21] MEDS: Albuterol-Ipratrop 3 mg / 0.5 (3 ml) UD INH SCH ×2 (16:29→20:00)
--- NOTE | 2018-02-21 16:46 | RAD ---
PROCEDURE: CHEST RADIOGRAPH, 1 VIEW HISTORY: chest congestion COMPARISON: None available. FINDINGS: LUNGS: Clear. PLEURA: No pneumothorax or pleural fluid seen. CARDIOVASCULAR: Normal. OSSEOUS STRUCTURES: No significant abnormalities. VISUALIZED UPPER ABDOMEN: Normal. OTHER FINDINGS: None. IMPRESSION: No active disease.
[2018-02-21 21:48] LABS: SQUAMOUS EPITHIAL < 1 /hpf (0-5); URINE BACTERIA RARE (<OCC); URINE BILIRUBIN NEGATIVE (NEGATIVE); URINE BLOOD NEGATIVE (NEGATIVE); URINE CLARITY SLIGHTY-CLOUDY (Clear); URINE COLOR YELLOW (YELLOW); URINE GLUCOSE (UA) NEG (Normal); URINE LEUKOCYTE ESTERASE TRACE Leu/uL (Negative); URINE PROTEIN NEGATIVE (NEGATIVE); URINE UROBILINOGEN 0.2-1.0 mg/dL (0.2-1.0)
[2018-02-21] MEDS: guaiFENesin 600 mg ER Tab PO SCH (23:08)
[2018-02-22] MEDS: Oxycodone/Acetaminophen 5/325 mg Tab PO PRN ×4 (03:17→20:48)
[2018-02-22] MEDS: Albuterol-Ipratrop 3 mg / 0.5 (3 ml) UD INH SCH ×4 (07:42→20:30)
[2018-02-22 08:15] VITALS: RESP 20
[2018-02-22] MEDS: Enoxaparin 40 mg Syringe SC SCH (08:33)
[2018-02-22] MEDS: Multivitamin With Minerals Tab PO SCH (08:34)
[2018-02-22] MEDS: Divalproex 500 mg DR(BID formulation) PO SCH ×2 (08:34→16:37)
[2018-02-22] MEDS: guaiFENesin 600 mg ER Tab PO SCH ×2 (08:34→20:47)
[2018-02-22] MEDS: Metoprolol Succinate 25 mg XL Tab PO SCH (08:35)
[2018-02-22 09:53] LABS: BLOOD UREA NITROGEN 4 mg/dl (9-20); CALCIUM 8.7 mg/dL (8.4-10.2); GFR AFRICAN-AMERICAN > 60; GFR NON-AFRICAN AMERICAN > 60; HEMOGLOBIN 9.1 g/dL (12.0-18.0); MEAN CELL VOLUME 90.8 fl (80.0-94.0); MEAN CORPUSCULAR HEMOGLOBIN 30.5 pg (27.0-31.0); MEAN CORPUSCULAR HGB CONC 33.6 g/dL (33.0-37.0); RED CELL DISTRIBUTION WIDTH 15.2 % (11.5-14.5); WHITE BLOOD COUNT 11.3 K/uL (4.8-10.8)
--- NOTE | 2018-02-22 10:38 | CP.PCM.PN ---
Subjective - Date & Time of Evaluation Date of Evaluation: 02/22/18 Time of Evaluation: 10:00 - Subjective Subjective: Patient see. Hemodynamically stable, afebrile pain is controlled No acute issues overnight participating with PT Waiting for ELLIS Objective - Vital Signs/Intake and Output Vital Signs (last 24 hours): Temp Pulse Resp BP Pulse Ox 98.3 F 103 H 20 123/79 100 02/22/18 08:14 02/22/18 08:35 02/22/18 08:14 02/22/18 08:35 02/22/18 08:14 Intake and Output: 02/22/18 02/22/18 06:59 18:59 Intake Total 150 Balance 150 - Medications Medications: Current Medications Acetaminophen (Tylenol 325mg Tab) 650 mg PO Q6 PRN PRN Reason: Pain, Mild (1-3) Last Admin: 02/18/18 14:58 Dose: 650 mg Acetaminophen (Tylenol 325mg Tab) 650 mg PO Q6 PRN PRN Reason: Fever >100.4 F Last Admin: 02/19/18 12:29 Dose: 650 mg Albuterol/Ipratropium (Duoneb 3 Mg/0.5 Mg (3 Ml) Ud) 3 ml INH RQID [facility] Last Admin: 02/22/18 07:42 Dose: 3 ml Amlodipine Besylate (Norvasc) 10 mg PO DAILY [facility] Last Admin: 02/22/18 08:35 Dose: 10 mg Divalproex Sodium (Depakote Dr(*Bid*)) 500 mg PO BID [facility] Last Admin: 02/22/18 08:34 Dose: 500 mg Docusate Sodium (Colace) 100 mg PO BID [facility] Last Admin: 02/22/18 08:34 Dose: 100 mg Enoxaparin Sodium (Lovenox) 40 mg SC DAILY [facility] PRN Reason: Protocol Last Admin: 02/22/18 08:33 Dose: 40 mg Ferrous Sulfate (Feosol) 325 mg PO BID [facility] Last Admin: 02/22/18 08:34 Dose: 325 mg Folic Acid (Folic Acid) 1 mg PO DAILY [facility] Last Admin: 02/22/18 08:35 Dose: 1 mg Guaifenesin (Mucinex La) 600 mg PO Q12 [facility] Last Admin: 02/22/18 08:34 Dose: 600 mg Lactic Acid (Lac-Hydrin 12% Lotion (225 G)) 1 applic TOP TID [facility] Last Admin: 02/22/18 08:35 Dose: 1 applic Metoprolol Succinate (Toprol Xl) 25 mg PO DAILY [facility] Last Admin: 02/22/18 08:35 Dose: 25 mg Morphine Sulfate (Morphine) 2 mg IVP Q4 PRN PRN Reason: Pain, severe (8-10) Last Admin: 02/19/18 06:35 Dose: 2 mg Multivitamins/Minerals (Therapeutic-M Tab) 1 tab PO DAILY [facility] Last Admin: 02/22/18 08:34 Dose: 1 tab Nicotine (Nicoderm Cq) 1 patch TD DAILY [facility] Last Admin: 02/22/18 08:34 Dose: 1 patch Oxycodone/Acetaminophen (Percocet 5/325 Mg Tab) 1 tab PO Q4 PRN PRN Reason: Pain, moderate (4-7) Stop: 02/24/18 15:39 Last Admin: 02/22/18 03:17 Dose: 1 tab Oxycodone/Acetaminophen (Percocet 5/325 Mg Tab) 2 tab PO Q6 PRN PRN Reason: Pain, severe (8-10) Stop: 02/24/18 15:39 Last Admin: 02/21/18 16:52 Dose: 2 tab Sodium Chloride (Sodium Chloride Tab) 1 gm PO DAILY [facility] Last Admin: 02/22/18 08:34 Dose: 1 gm Thiamine HCl (Vitamin B1 Tab) 100 mg PO DAILY [facility] Last Admin: 02/22/18 08:35 Dose: 100 mg Trimethobenzamide HCl (Tigan) 200 mg IM Q8 PRN PRN Reason: Nausea/Vomiting - Labs Labs: 02/22/18 07:12 02/22/18 07:12 PT 11.2 Seconds (9.8-13.1) 02/18/18 04:25 INR 1.0 (0.9-1.2) 02/18/18 04:25 - Constitutional Appears: Non-toxic, No Acute Distress, Older Than Stated Age - Head Exam Head Exam: ATRAUMATIC, NORMOCEPHALIC - Eye Exam Eye Exam: EOMI, PERRL Pupil Exam: NORMAL ACCOMODATION - ENT Exam ENT Exam: Mucous Membranes Moist, Normal Exam - Neck Exam Neck Exam: Full ROM, Normal Inspection - Respiratory Exam Respiratory Exam: Clear to Ausculation Bilateral, NORMAL BREATHING PATTERN. absent: Rales, Rhonchi, Wheezes - Cardiovascular Exam Cardiovascular Exam: Tachycardia, REGULAR RHYTHM, RRR, +S1. absent: JVD - GI/Abdominal Exam GI & Abdominal Exam: Soft, Normal Bowel Sounds. absent: Distended, Guarding, Rebound - Rectal Exam Rectal Exam: Deferred - Extremities Exam Extremities Exam: Normal Capillary Refill. absent: Normal Inspection, Pedal Edema Additional comments: left hip georgie in place lower leg multiple scratches - Back Exam Back Exam: NORMAL INSPECTION - Neurological Exam Neurological Exam: Alert, Awake, CN II-XII Intact, Oriented x3 - Psychiatric Exam Psychiatric exam: Normal Affect - Skin Skin Exam: Dry, Warm Assessment and Plan - Assessment and Plan (Free Text) Assessment: 58 y/o male with PMH of EtOH abuse,seizure, HTN, and HLD brought to the ER after multiple falls and being found down in his apartment. He was in hospital just recently admitted on 02/04 for EtOH intoxication with seizures. In the hospital, he appeared to have several episodes of syncope/ seizures, and he was eventually started on depakote. He was discharged home in stable condition. Again he is brought to ER with ingestion of a large amount of EtOH and found down in his apt sitting in his feces Ct hip showed Acute comminuted nondisplaced left intertrochanteric fracture He was started on IVF , MVI, thiamine, Folic acid and seizure precautions. Ortho was consulted . Had Closed Reduction and Internal Fixation of left hip on 02/18. At present waiting for transfer to [facility] 1.Acute comminuted nondisplaced left intertrochanteric fracture s/p Reduction and Internal Fixation Ortho following pt pain is controlled Wound with georgie healing well Fall precautions DVT prophylaxis with Lovenox plan for d/c to [facility] after insurance approval Continue Pt while in house 2.Rhabdomyolysis secondary to falls improved with IVF d/c IVF CPK trended down 3. Hyponatremia/ Hypochloremia most likely SIADH from stress of surgery, volume depletion, and low solute intake and also noticed polydipsia Na 132 today continue Fluid restriction 1.2 L / day on Salt Tablets 4.EtOH abuse/intoxication no signs of withdrawals or tremors Continue Thiamine, Folic acid ,MVi ETOH levels were elevated on admission Withdrawal/ seizure precautions 5.EtOH w/ hx seizures Continue depakote 500 BID PRN ativan 6. Hypertension BP controlled Continue metoprolol and Norvasc cardiology consulted for preop clearance Echo showed normal EF and wall motion 7. Pancreas mass found on CT previously pt was seen by GI - likely Pancreatic cyst due to ETOH abuse - ff up with GI as outpt 8. Mild Dementia likely sec to ETOH confused at times but easily redirected 9. Anemia, chronic monitor stable Hgb 9.2 on ferrous sulfate 10. Leukocytosis Most likely reactive Monitor for now CXR - clear , UA -- trace LE ,WBC 17 , few bacteria. Send urine cx bactrim Po promote use of incentive spirometry 11. Dry SKin , bucky on LE Lac Hydrin lotion 12. DVT PPx SCDs Lovenox
[2018-02-23] MEDS: Oxycodone/Acetaminophen 5/325 mg Tab PO PRN ×4 (02:56→20:08)
[2018-02-23 06:49] LABS: HEMOGLOBIN 8.8 g/dL (12.0-18.0); MEAN CELL VOLUME 90.1 fl (80.0-94.0); MEAN CORPUSCULAR HEMOGLOBIN 30.5 pg (27.0-31.0); MEAN CORPUSCULAR HGB CONC 33.8 g/dL (33.0-37.0); RBC 2.88 Mil/uL (4.40-5.90); RED CELL DISTRIBUTION WIDTH 15.2 % (11.5-14.5); WHITE BLOOD COUNT 12.6 K/uL (4.8-10.8)
[2018-02-23 06:54] LABS: BLOOD UREA NITROGEN 4 mg/dl (9-20); CALCIUM 8.8 mg/dL (8.4-10.2); GFR AFRICAN-AMERICAN > 60; GFR NON-AFRICAN AMERICAN > 60
[2018-02-23] MEDS: Albuterol-Ipratrop 3 mg / 0.5 (3 ml) UD INH SCH ×4 (07:21→19:54)
[2018-02-23] MEDS: Divalproex 500 mg DR(BID formulation) PO SCH ×2 (08:43→17:44)
[2018-02-23] MEDS: Enoxaparin 40 mg Syringe SC SCH (08:43)
[2018-02-23] MEDS: guaiFENesin 600 mg ER Tab PO SCH ×2 (08:44→20:09)
[2018-02-23] MEDS: Multivitamin With Minerals Tab PO SCH (08:44)
[2018-02-23] MEDS: Metoprolol Succinate 25 mg XL Tab PO SCH (08:50)
--- NOTE | 2018-02-23 11:16 | CP.PCM.DIS ---
Provider - Provider Date of Admission: 02/16/18 00:31 Attending physician: Dalia Freitas MD Time Spent in preparation of Discharge (in minutes): 30 Hospital Course - Lab Results Lab Results: Most Recent Lab Values WBC 12.6 K/uL (4.8-10.8) H 02/23/18 05:55 RBC 2.88 Mil/uL (4.40-5.90) L 02/23/18 05:55 Hgb 8.8 g/dL (12.0-18.0) L 02/23/18 05:55 Hct 25.9 % (35.0-51.0) L 02/23/18 05:55 MCV 90.1 fl (80.0-94.0) 02/23/18 05:55 MCH 30.5 pg (27.0-31.0) 02/23/18 05:55 MCHC 33.8 g/dL (33.0-37.0) 02/23/18 05:55 RDW 15.2 % (11.5-14.5) H 02/23/18 05:55 Plt Count 480 K/uL (130-400) H 02/23/18 05:55 MPV 6.6 fl (7.2-11.7) L 02/18/18 04:25 Neut % (Auto) 68.4 % (50.0-75.0) 02/18/18 04:25 Lymph % (Auto) 13.1 % (20.0-40.0) L 02/18/18 04:25 Sampson % (Auto) 10.3 % (0.0-10.0) H 02/18/18 04:25 Eos % (Auto) 6.8 % (0.0-4.0) H 02/18/18 04:25 Baso % (Auto) 1.4 % (0.0-2.0) 02/18/18 04:25 Neut # (Auto) 6.4 K/uL (1.8-7.0) 02/18/18 04:25 Lymph # (Auto) 1.2 K/uL (1.0-4.3) 02/18/18 04:25 Sampson # (Auto) 1.0 K/uL (0.0-0.8) H 02/18/18 04:25 Eos # (Auto) 0.6 K/uL (0.0-0.7) 02/18/18 04:25 Baso # (Auto) 0.1 K/uL (0.0-0.2) 02/18/18 04:25 PT 11.2 Seconds (9.8-13.1) 02/18/18 04:25 INR 1.0 (0.9-1.2) 02/18/18 04:25 Sodium 130 mmol/l (132-148) L 02/23/18 05:55 Potassium 3.9 MMOL/L (3.6-5.0) 02/23/18 05:55 Chloride 92 mmol/L (98-107) L 02/23/18 05:55 Carbon Dioxide 24 mmol/L (22-30) 02/23/18 05:55 Anion Gap 18 (10-20) 02/23/18 05:55 BUN 4 mg/dl (9-20) L 02/23/18 05:55 Creatinine 0.7 mg/dl (0.8-1.5) L 02/23/18 05:55 Est GFR ( Amer) > 60 02/23/18 05:55 Est GFR (Non-Af Amer) > 60 02/23/18 05:55 POC Glucose (mg/dL) 116 mg/dL (65-110) H 02/19/18 11:03 Random Glucose 136 mg/dL (75-110) H 02/23/18 05:55 Serum Osmolality 262 mosm/kg (272-300) L 02/19/18 07:41 Lactic Acid 2.4 MMOL/L (0.7-2.1) H 02/15/18 22:40 Calcium 8.8 mg/dL (8.4-10.2) 02/23/18 05:55 Magnesium 2.1 MG/DL (1.6-2.3) 02/15/18 22:40 Total Bilirubin 0.3 mg/dl (0.2-1.3) 02/15/18 22:40 AST 41 U/L (17-59) 02/15/18 22:40 ALT 34 U/L (21-72) 02/15/18 22:40 Alkaline Phosphatase 90 U/L (38-126) 02/15/18 22:40 Total Creatine Kinase 280 U/L (55-170) H 02/19/18 15:37 Total Protein 7.6 G/DL (6.3-8.2) 02/15/18 22:40 Albumin 3.3 g/dL (3.5-5.0) L 02/15/18 22:40 Globulin 4.3 gm/dL (2.2-3.9) H 02/15/18 22:40 Albumin/Globulin Ratio 0.8 (1.0-2.1) L 02/15/18 22:40 Prolactin 6.6 ng/mL (3.7-17.9) 02/15/18 22:40 Urine Color Yellow (YELLOW) 02/21/18 21:08 Urine Clarity Slighty-cloudy (Clear) 02/21/18 21:08 Urine pH 5.0 (5.0-8.0) 02/21/18 21:08 Ur Specific Scott 1.010 (1.003-1.030) 02/21/18 21:08 Urine Protein Negative mg/dL (NEGATIVE) 02/21/18 21:08 Urine Glucose (UA) Neg mg/dL (Normal) 02/21/18 21:08 Urine Ketones Negative mg/dL (NEGATIVE) 02/21/18 21:08 Urine Blood Negative (NEGATIVE) 02/21/18 21:08 Urine Nitrate Negative (NEGATIVE) 02/21/18 21:08 Urine Bilirubin Negative (NEGATIVE) 02/21/18 21:08 Urine Urobilinogen 0.2-1.0 mg/dL (0.2-1.0) 02/21/18 21:08 Ur Leukocyte Esterase Trace Tia/uL (Negative) 02/21/18 21:08 Urine RBC (Auto) 1 /hpf (0-3) 02/21/18 21:08 Urine Microscopic WBC 17 /hpf (0-5) H 02/21/18 21:08 Ur Squamous Epith Cells < 1 /hpf (0-5) 02/21/18 21:08 Urine Bacteria Rare (<OCC) 02/21/18 21:08 Urine Osmolality 392 mosm/kg (300-1000) 02/19/18 09:51 Urine Opiates Screen Negative (NEGATIVE) 02/15/18 21:35 Urine Methadone Screen Negative (NEGATIVE) 02/15/18 21:35 Ur Barbiturates Screen Negative (NEGATIVE) 02/15/18 21:35 Ur Phencyclidine Scrn Negative (NEGATIVE) 02/15/18 21:35 Ur Amphetamines Screen Negative (NEGATIVE) 02/15/18 21:35 U Benzodiazepines Scrn Positive (NEGATIVE) 02/15/18 21:35 U Oth Cocaine Metabols Negative (NEGATIVE) 02/15/18 21:35 U Cannabinoids Screen Negative (NEGATIVE) 02/15/18 21:35 Alcohol, Quantitative < 10 mg/dl (0-10) 02/16/18 07:50 Blood Type A NEGATIVE 02/17/18 09:57 Blood Type Confirm A NEGATIVE 02/17/18 10:12 Antibody Screen Negative 02/17/18 09:57 BBK History Checked No verified bt 02/17/18 09:57 - Hospital Course Hospital Course: Assessment: 58 y/o male with PMH of EtOH abuse,seizure, HTN, and HLD brought to the ER after multiple falls and being found down in his apartment. He was in hospital just recently admitted on 02/04 for EtOH intoxication with seizures. In the hospital, he appeared to have several episodes of syncope/ seizures, and he was eventually started on depakote. He was discharged home in stable condition. Again he is brought to ER with ingestion of a large amount of EtOH and found down in his apt sitting in his feces Ct hip showed Acute comminuted nondisplaced left intertrochanteric fracture He was started on IVF , MVI, thiamine, Folic acid and seizure precautions. Ortho was consulted . Had Closed Reduction and Internal Fixation of left hip on 02/18. Patient stable for discharge to [facility]. To also complete 5 more days of Cipro for UTI. 1.Acute comminuted nondisplaced left intertrochanteric fracture s/p Reduction and Internal Fixation Ortho following pt pain is controlled Wound with georgie healing well Fall precautions DVT prophylaxis with Lovenox plan for d/c to [facility] after insurance approval Continue Pt while in house 2.Rhabdomyolysis secondary to falls improved with IVF d/c IVF CPK trended down 3. Hyponatremia/ Hypochloremia most likely SIADH from stress of surgery, volume depletion, and low solute intake and also noticed polydipsia Na 132 today continue Fluid restriction 1.2 L / day on Salt Tablets 4.EtOH abuse/intoxication no signs of withdrawals or tremors Continue Thiamine, Folic acid ,MVi ETOH levels were elevated on admission Withdrawal/ seizure precautions 5.EtOH w/ hx seizures Continue depakote 500 BID PRN ativan 6. Hypertension BP controlled Continue metoprolol and Norvasc cardiology consulted for preop clearance Echo showed normal EF and wall motion 7. Pancreas mass found on CT previously pt was seen by GI - likely Pancreatic cyst due to ETOH abuse - ff up with GI as outpt 8. Mild Dementia likely sec to ETOH confused at times but easily redirected 9. Anemia, chronic monitor stable Hgb 9.2 on ferrous sulfate 10. Leukocytosis Most likely reactive Monitor for now CXR - clear , UA -- trace LE ,WBC 17 , few bacteria. Send urine cx bactrim Po promote use of incentive spirometry 11. Dry SKin , bucky on LE Lac Hydrin lotion 12. DVT PPx SCDs Lovenox Discharge Exam - Head Exam Head Exam: ATRAUMATIC, NORMOCEPHALIC - Eye Exam Eye Exam: EOMI, Normal appearance Pupil Exam: NORMAL ACCOMODATION - ENT Exam ENT Exam: Mucous Membranes Moist, Normal Oropharynx - Neck Exam Neck exam: Full Rom, Normal Inspection - Respiratory Exam Respiratory Exam: Clear to PA & Lateral, NORMAL BREATHING PATTERN - Cardiovascular Exam Cardiovascular Exam: RRR, +S1, +S2 - GI/Abdominal Exam GI & Abdominal Exam: Normal Bowel Sounds, Soft. absent: Mass - Extremities Exam Extremities exam: normal capillary refill, pedal pulses present - Back Exam Back exam: absent: CVA tenderness (L), CVA tenderness (R) - Neurological Exam Neurological exam: Alert, Reflexes Normal - Psychiatric Exam Psychiatric exam: Normal Affect, Normal Mood - Skin Skin Exam: Dry, Warm Discharge Plan - Follow Up Plan Condition: FAIR Disposition: HOME/ ROUTINE Instructions: Alcohol Abuse and Alcoholism (DC) Referrals: Torey Butts [Family Provider] - Molly Rowland MD [Staff Provider] -
--- NOTE | 2018-02-23 12:20 | CP.PCM.PN ---
Subjective - Date & Time of Evaluation Date of Evaluation: 02/23/18 Time of Evaluation: 10:00 - Subjective Subjective: Patient seen and examined at bedside comfortable. Pain well controlled. No new complaints. Objective - Vital Signs/Intake and Output Vital Signs (last 24 hours): Temp Pulse Resp BP Pulse Ox 99 F 100 H 20 133/80 100 02/23/18 09:00 02/23/18 09:00 02/23/18 09:00 02/23/18 09:00 02/23/18 09:00 Intake and Output: 02/23/18 02/23/18 06:59 18:59 Intake Total 240 400 Balance 240 400 - Medications Medications: Current Medications Acetaminophen (Tylenol 325mg Tab) 650 mg PO Q6 PRN PRN Reason: Pain, Mild (1-3) Last Admin: 02/18/18 14:58 Dose: 650 mg Acetaminophen (Tylenol 325mg Tab) 650 mg PO Q6 PRN PRN Reason: Fever >100.4 F Last Admin: 02/19/18 12:29 Dose: 650 mg Albuterol/Ipratropium (Duoneb 3 Mg/0.5 Mg (3 Ml) Ud) 3 ml INH RQID [facility] Last Admin: 02/23/18 11:52 Dose: Not Given Amlodipine Besylate (Norvasc) 10 mg PO DAILY [facility] Last Admin: 02/23/18 08:49 Dose: 10 mg Ciprofloxacin (Cipro) 500 mg PO Q12 [facility] PRN Reason: Protocol Last Admin: 02/23/18 08:42 Dose: 500 mg Divalproex Sodium (Depakote Dr(*Bid*)) 500 mg PO BID [facility] Last Admin: 02/23/18 08:43 Dose: 500 mg Docusate Sodium (Colace) 100 mg PO BID [facility] Last Admin: 02/23/18 08:42 Dose: 100 mg Enoxaparin Sodium (Lovenox) 40 mg SC DAILY [facility] PRN Reason: Protocol Last Admin: 02/23/18 08:43 Dose: 40 mg Ferrous Sulfate (Feosol) 325 mg PO BID [facility] Last Admin: 02/23/18 08:43 Dose: 325 mg Folic Acid (Folic Acid) 1 mg PO DAILY [facility] Last Admin: 02/23/18 08:43 Dose: 1 mg Guaifenesin (Mucinex La) 600 mg PO Q12 [facility] Last Admin: 02/23/18 08:44 Dose: 600 mg Lactic Acid (Lac-Hydrin 12% Lotion (225 G)) 1 applic TOP TID [facility] Last Admin: 02/23/18 12:13 Dose: 1 applic Metoprolol Succinate (Toprol Xl) 25 mg PO DAILY [facility] Last Admin: 02/23/18 08:50 Dose: 25 mg Morphine Sulfate (Morphine) 2 mg IVP Q4 PRN PRN Reason: Pain, severe (8-10) Last Admin: 02/19/18 06:35 Dose: 2 mg Multivitamins/Minerals (Therapeutic-M Tab) 1 tab PO DAILY [facility] Last Admin: 02/23/18 08:44 Dose: 1 tab Nicotine (Nicoderm Cq) 1 patch TD DAILY [facility] Last Admin: 02/23/18 08:50 Dose: 1 patch Oxycodone/Acetaminophen (Percocet 5/325 Mg Tab) 1 tab PO Q4 PRN PRN Reason: Pain, moderate (4-7) Stop: 02/24/18 15:39 Last Admin: 02/23/18 08:40 Dose: 1 tab Oxycodone/Acetaminophen (Percocet 5/325 Mg Tab) 2 tab PO Q6 PRN PRN Reason: Pain, severe (8-10) Stop: 02/24/18 15:39 Last Admin: 02/22/18 11:25 Dose: 2 tab Sodium Chloride (Sodium Chloride Tab) 1 gm PO DAILY [facility] Last Admin: 02/23/18 08:44 Dose: 1 gm Thiamine HCl (Vitamin B1 Tab) 100 mg PO DAILY [facility] Last Admin: 02/23/18 08:44 Dose: 100 mg Trimethobenzamide HCl (Tigan) 200 mg IM Q8 PRN PRN Reason: Nausea/Vomiting - Labs Labs: 02/23/18 05:55 02/23/18 05:55 PT 11.2 Seconds (9.8-13.1) 02/18/18 04:25 INR 1.0 (0.9-1.2) 02/18/18 04:25 - Extremities Exam Additional comments: LLE: wounds c/d/i with georgie, mild to mod swelling sensation intact SP/DP/TN motor intact EHL/FHL/TA/G pedal pulses intact compartments soft/NT Assessment and Plan (1) Intertrochanteric fracture of right hip Assessment & Plan: POD#5 s/p L hip IT fx IM nailing -PT/OT WBAT -orthopedically stable for d/c to rehab -f/u with Dr. Narciso Ellis in 7-10 days -above d/w Dr. Narciso Ellis in agreement Status: Acute
--- NOTE | 2018-02-23 16:59 | CP.PCM.PN ---
Subjective - Date & Time of Evaluation Date of Evaluation: 02/23/18 Time of Evaluation: 16:58 - Subjective Subjective: doing well no complaints awaiting auth for rehab placement. hd stable nad Objective - Vital Signs/Intake and Output Vital Signs (last 24 hours): Temp Pulse Resp BP Pulse Ox 99.6 F 88 20 137/77 100 02/23/18 15:55 02/23/18 15:55 02/23/18 15:55 02/23/18 15:55 02/23/18 15:55 Intake and Output: 02/23/18 02/23/18 06:59 18:59 Intake Total 240 400 Balance 240 400 - Medications Medications: Current Medications Acetaminophen (Tylenol 325mg Tab) 650 mg PO Q6 PRN PRN Reason: Pain, Mild (1-3) Last Admin: 02/18/18 14:58 Dose: 650 mg Acetaminophen (Tylenol 325mg Tab) 650 mg PO Q6 PRN PRN Reason: Fever >100.4 F Last Admin: 02/19/18 12:29 Dose: 650 mg Albuterol/Ipratropium (Duoneb 3 Mg/0.5 Mg (3 Ml) Ud) 3 ml INH RQID [facility] Last Admin: 02/23/18 15:28 Dose: 3 ml Amlodipine Besylate (Norvasc) 10 mg PO DAILY [facility] Last Admin: 02/23/18 08:49 Dose: 10 mg Ciprofloxacin (Cipro) 500 mg PO Q12 [facility] PRN Reason: Protocol Last Admin: 02/23/18 08:42 Dose: 500 mg Divalproex Sodium (Depakote Dr(*Bid*)) 500 mg PO BID [facility] Last Admin: 02/23/18 08:43 Dose: 500 mg Docusate Sodium (Colace) 100 mg PO BID [facility] Last Admin: 02/23/18 08:42 Dose: 100 mg Enoxaparin Sodium (Lovenox) 40 mg SC DAILY [facility] PRN Reason: Protocol Last Admin: 02/23/18 08:43 Dose: 40 mg Ferrous Sulfate (Feosol) 325 mg PO BID [facility] Last Admin: 02/23/18 08:43 Dose: 325 mg Folic Acid (Folic Acid) 1 mg PO DAILY [facility] Last Admin: 02/23/18 08:43 Dose: 1 mg Guaifenesin (Mucinex La) 600 mg PO Q12 [facility] Last Admin: 02/23/18 08:44 Dose: 600 mg Ibuprofen (Motrin Tab) 600 mg PO Q6 PRN PRN Reason: Pain, moderate (4-7) Lactic Acid (Lac-Hydrin 12% Lotion (225 G)) 1 applic TOP TID [facility] Last Admin: 02/23/18 12:13 Dose: 1 applic Metoprolol Succinate (Toprol Xl) 25 mg PO DAILY [facility] Last Admin: 02/23/18 08:50 Dose: 25 mg Morphine Sulfate (Morphine) 2 mg IVP Q4 PRN PRN Reason: Pain, severe (8-10) Last Admin: 02/19/18 06:35 Dose: 2 mg Multivitamins/Minerals (Therapeutic-M Tab) 1 tab PO DAILY [facility] Last Admin: 02/23/18 08:44 Dose: 1 tab Nicotine (Nicoderm Cq) 1 patch TD DAILY [facility] Last Admin: 02/23/18 08:50 Dose: 1 patch Oxycodone/Acetaminophen (Percocet 5/325 Mg Tab) 1 tab PO Q4 PRN PRN Reason: Pain, moderate (4-7) Stop: 02/24/18 15:39 Last Admin: 02/23/18 16:04 Dose: 1 tab Oxycodone/Acetaminophen (Percocet 5/325 Mg Tab) 2 tab PO Q6 PRN PRN Reason: Pain, severe (8-10) Stop: 02/24/18 15:39 Last Admin: 02/22/18 11:25 Dose: 2 tab Sodium Chloride (Sodium Chloride Tab) 1 gm PO DAILY [facility] Last Admin: 02/23/18 08:44 Dose: 1 gm Thiamine HCl (Vitamin B1 Tab) 100 mg PO DAILY [facility] Last Admin: 02/23/18 08:44 Dose: 100 mg Trimethobenzamide HCl (Tigan) 200 mg IM Q8 PRN PRN Reason: Nausea/Vomiting - Labs Labs: 02/23/18 05:55 02/23/18 05:55 PT 11.2 Seconds (9.8-13.1) 02/18/18 04:25 INR 1.0 (0.9-1.2) 02/18/18 04:25 - Constitutional Appears: Non-toxic, No Acute Distress - Head Exam Head Exam: ATRAUMATIC, NORMOCEPHALIC - Eye Exam Eye Exam: EOMI, Normal appearance, PERRL - ENT Exam ENT Exam: Mucous Membranes Moist, Normal Oropharynx - Neck Exam Neck Exam: Full ROM, Normal Inspection - Respiratory Exam Respiratory Exam: Clear to Ausculation Bilateral, NORMAL BREATHING PATTERN - Cardiovascular Exam Cardiovascular Exam: RRR, +S1, +S2 - GI/Abdominal Exam GI & Abdominal Exam: Soft, Normal Bowel Sounds. absent: Tenderness, Mass, Organomegaly, Rebound - Extremities Exam Extremities Exam: Normal Capillary Refill. absent: Pedal Edema - Back Exam Back Exam: absent: CVA tenderness (L), CVA tenderness (R) - Neurological Exam Neurological Exam: Alert, Awake - Psychiatric Exam Psychiatric exam: Normal Affect, Normal Mood - Skin Skin Exam: Dry, Warm Assessment and Plan - Assessment and Plan (Free Text) Plan: 58 y/o male with PMH of EtOH abuse,seizure, HTN, and HLD brought to the ER after multiple falls and being found down in his apartment. He was in hospital just recently admitted on 02/04 for EtOH intoxication with seizures. In the hospital, he appeared to have several episodes of syncope/ seizures, and he was eventually started on depakote. He was discharged home in stable condition. Again he is brought to ER with ingestion of a large amount of EtOH and found down in his apt sitting in his feces Ct hip showed Acute comminuted nondisplaced left intertrochanteric fracture He was started on IVF , MVI, thiamine, Folic acid and seizure precautions. Ortho was consulted . Had Closed Reduction and Internal Fixation of left hip on 02/18. Patient stable for discharge to [facility]. Awaiting auth. To also complete 5 more days of Cipro for UTI. 1.Acute comminuted nondisplaced left intertrochanteric fracture s/p Reduction and Internal Fixation Ortho following pt pain is controlled Wound with georgie healing well Fall precautions DVT prophylaxis with Lovenox plan for d/c to [facility] after insurance approval Continue Pt while in house 2.Rhabdomyolysis secondary to falls improved with IVF d/c IVF CPK trended down 3. Hyponatremia/ Hypochloremia most likely SIADH from stress of surgery, volume depletion, and low solute intake and also noticed polydipsia Na 132 today continue Fluid restriction 1.2 L / day on Salt Tablets 4.EtOH abuse/intoxication no signs of withdrawals or tremors Continue Thiamine, Folic acid ,MVi ETOH levels were elevated on admission Withdrawal/ seizure precautions 5.EtOH w/ hx seizures Continue depakote 500 BID PRN ativan 6. Hypertension BP controlled Continue metoprolol and Norvasc cardiology consulted for preop clearance Echo showed normal EF and wall motion 7. Pancreas mass found on CT previously pt was seen by GI - likely Pancreatic cyst due to ETOH abuse - ff up with GI as outpt 8. Mild Dementia likely sec to ETOH confused at times but easily redirected 9. Anemia, chronic monitor stable Hgb 9.2 on ferrous sulfate 10. Leukocytosis Most likely reactive Monitor for now CXR - clear , UA -- trace LE ,WBC 17 , few bacteria. Send urine cx bactrim Po promote use of incentive spirometry 11. Dry SKin , bucky on LE Lac Hydrin lotion 12. DVT PPx SCDs Lovenox Discharge Exam
[2018-02-24] MEDS: Oxycodone/Acetaminophen 5/325 mg Tab PO PRN ×2 (05:29→10:24)
--- NOTE | 2018-02-24 07:35 | CP.PCM.PN ---
Subjective - Date & Time of Evaluation Date of Evaluation: 02/24/18 Time of Evaluation: 07:35 - Subjective Subjective: Patient seen and examined at bedside comfortable. Pain well controlled. Eager to be discharged. No new complaints. Objective - Vital Signs/Intake and Output Vital Signs (last 24 hours): Temp Pulse Resp BP Pulse Ox 98.1 F 87 20 129/86 99 02/23/18 23:37 02/23/18 23:37 02/23/18 23:37 02/23/18 23:37 02/23/18 23:37 - Medications Medications: Current Medications Acetaminophen (Tylenol 325mg Tab) 650 mg PO Q6 PRN PRN Reason: Pain, Mild (1-3) Last Admin: 02/18/18 14:58 Dose: 650 mg Acetaminophen (Tylenol 325mg Tab) 650 mg PO Q6 PRN PRN Reason: Fever >100.4 F Last Admin: 02/19/18 12:29 Dose: 650 mg Albuterol/Ipratropium (Duoneb 3 Mg/0.5 Mg (3 Ml) Ud) 3 ml INH RQID [facility] Last Admin: 02/23/18 19:54 Dose: Not Given Amlodipine Besylate (Norvasc) 10 mg PO DAILY [facility] Last Admin: 02/23/18 08:49 Dose: 10 mg Ciprofloxacin (Cipro) 500 mg PO Q12 [facility] PRN Reason: Protocol Last Admin: 02/23/18 20:09 Dose: 500 mg Divalproex Sodium (Depakote Dr(*Bid*)) 500 mg PO BID [facility] Last Admin: 02/23/18 17:44 Dose: 500 mg Docusate Sodium (Colace) 100 mg PO BID [facility] Last Admin: 02/23/18 17:43 Dose: 100 mg Enoxaparin Sodium (Lovenox) 40 mg SC DAILY [facility] PRN Reason: Protocol Last Admin: 02/23/18 08:43 Dose: 40 mg Ferrous Sulfate (Feosol) 325 mg PO BID [facility] Last Admin: 02/23/18 17:44 Dose: 325 mg Folic Acid (Folic Acid) 1 mg PO DAILY [facility] Last Admin: 02/23/18 08:43 Dose: 1 mg Guaifenesin (Mucinex La) 600 mg PO Q12 [facility] Last Admin: 02/23/18 20:09 Dose: 600 mg Ibuprofen (Motrin Tab) 600 mg PO Q6 PRN PRN Reason: Pain, moderate (4-7) Lactic Acid (Lac-Hydrin 12% Lotion (225 G)) 1 applic TOP TID [facility] Last Admin: 02/23/18 17:45 Dose: 1 applic Metoprolol Succinate (Toprol Xl) 25 mg PO DAILY [facility] Last Admin: 02/23/18 08:50 Dose: 25 mg Morphine Sulfate (Morphine) 2 mg IVP Q4 PRN PRN Reason: Pain, severe (8-10) Last Admin: 02/19/18 06:35 Dose: 2 mg Multivitamins/Minerals (Therapeutic-M Tab) 1 tab PO DAILY [facility] Last Admin: 02/23/18 08:44 Dose: 1 tab Nicotine (Nicoderm Cq) 1 patch TD DAILY [facility] Last Admin: 02/23/18 08:50 Dose: 1 patch Oxycodone/Acetaminophen (Percocet 5/325 Mg Tab) 1 tab PO Q4 PRN PRN Reason: Pain, moderate (4-7) Stop: 02/24/18 15:39 Last Admin: 02/23/18 16:04 Dose: 1 tab Oxycodone/Acetaminophen (Percocet 5/325 Mg Tab) 2 tab PO Q6 PRN PRN Reason: Pain, severe (8-10) Stop: 02/24/18 15:39 Last Admin: 02/24/18 05:29 Dose: 2 tab Sodium Chloride (Sodium Chloride Tab) 1 gm PO DAILY [facility] Last Admin: 02/23/18 08:44 Dose: 1 gm Thiamine HCl (Vitamin B1 Tab) 100 mg PO DAILY [facility] Last Admin: 02/23/18 08:44 Dose: 100 mg Trimethobenzamide HCl (Tigan) 200 mg IM Q8 PRN PRN Reason: Nausea/Vomiting - Labs Labs: 02/23/18 05:55 02/23/18 05:55 PT 11.2 Seconds (9.8-13.1) 02/18/18 04:25 INR 1.0 (0.9-1.2) 02/18/18 04:25 - Extremities Exam Additional comments: LLE: wounds c/d/i with georgie, mild to mod swelling sensation intact SP/DP/TN motor intact EHL/FHL/TA/G pedal pulses intact compartments soft/NT Assessment and Plan (1) Intertrochanteric fracture of right hip Assessment & Plan: POD#6 s/p L hip IT fx IM nailing -PT/OT WBAT -DVT ppx -orthopedically stable for d/c to rehab -f/u with Dr. Narciso Ellis in 7-10 days -above d/w Dr. Narciso Ellis in agreement Status: Acute
[2018-02-24] MEDS: Albuterol-Ipratrop 3 mg / 0.5 (3 ml) UD INH SCH ×3 (08:02→15:21)
[2018-02-24] MEDS: Enoxaparin 40 mg Syringe SC SCH (10:07)
[2018-02-24] MEDS: Multivitamin With Minerals Tab PO SCH (10:09)
[2018-02-24] MEDS: guaiFENesin 600 mg ER Tab PO SCH (10:10)
[2018-02-24] MEDS: Divalproex 500 mg DR(BID formulation) PO SCH ×2 (10:10→16:03)
[2018-02-24] MEDS: Metoprolol Succinate 25 mg XL Tab PO SCH (10:11)
--- NOTE | 2018-02-24 13:06 | CP.PCM.PN ---
Subjective - Date & Time of Evaluation Date of Evaluation: 02/24/18 Time of Evaluation: 13:05 - Subjective Subjective: doing well awaiting discharge to rehab hd stable nad Objective - Vital Signs/Intake and Output Vital Signs (last 24 hours): Temp Pulse Resp BP Pulse Ox 98.6 F 97 H 20 113/72 98 02/24/18 08:09 02/24/18 10:11 02/24/18 08:09 02/24/18 10:11 02/24/18 08:09 - Medications Medications: Current Medications Acetaminophen (Tylenol 325mg Tab) 650 mg PO Q6 PRN PRN Reason: Pain, Mild (1-3) Last Admin: 02/18/18 14:58 Dose: 650 mg Acetaminophen (Tylenol 325mg Tab) 650 mg PO Q6 PRN PRN Reason: Fever >100.4 F Last Admin: 02/19/18 12:29 Dose: 650 mg Albuterol/Ipratropium (Duoneb 3 Mg/0.5 Mg (3 Ml) Ud) 3 ml INH RQID [facility] Last Admin: 02/24/18 08:02 Dose: Not Given Amlodipine Besylate (Norvasc) 10 mg PO DAILY [facility] Last Admin: 02/24/18 10:10 Dose: 10 mg Ciprofloxacin (Cipro) 500 mg PO Q12 [facility] PRN Reason: Protocol Last Admin: 02/24/18 10:08 Dose: 500 mg Divalproex Sodium (Depakote Dr(*Bid*)) 500 mg PO BID [facility] Last Admin: 02/24/18 10:10 Dose: 500 mg Docusate Sodium (Colace) 100 mg PO BID [facility] Last Admin: 02/24/18 10:08 Dose: 100 mg Enoxaparin Sodium (Lovenox) 40 mg SC DAILY [facility] PRN Reason: Protocol Last Admin: 02/24/18 10:07 Dose: 40 mg Ferrous Sulfate (Feosol) 325 mg PO BID [facility] Last Admin: 02/24/18 10:15 Dose: 325 mg Folic Acid (Folic Acid) 1 mg PO DAILY [facility] Last Admin: 02/24/18 10:09 Dose: 1 mg Guaifenesin (Mucinex La) 600 mg PO Q12 [facility] Last Admin: 02/24/18 10:10 Dose: 600 mg Ibuprofen (Motrin Tab) 600 mg PO Q6 PRN PRN Reason: Pain, moderate (4-7) Lactic Acid (Lac-Hydrin 12% Lotion (225 G)) 1 applic TOP TID [facility] Last Admin: 02/23/18 17:45 Dose: 1 applic Metoprolol Succinate (Toprol Xl) 25 mg PO DAILY [facility] Last Admin: 02/24/18 10:11 Dose: 25 mg Morphine Sulfate (Morphine) 2 mg IVP Q4 PRN PRN Reason: Pain, severe (8-10) Last Admin: 02/19/18 06:35 Dose: 2 mg Multivitamins/Minerals (Therapeutic-M Tab) 1 tab PO DAILY [facility] Last Admin: 02/24/18 10:09 Dose: 1 tab Nicotine (Nicoderm Cq) 1 patch TD DAILY [facility] Last Admin: 02/24/18 10:16 Dose: 1 patch Oxycodone/Acetaminophen (Percocet 5/325 Mg Tab) 1 tab PO Q4 PRN PRN Reason: Pain, moderate (4-7) Stop: 02/24/18 15:39 Last Admin: 02/24/18 10:24 Dose: 1 tab Oxycodone/Acetaminophen (Percocet 5/325 Mg Tab) 2 tab PO Q6 PRN PRN Reason: Pain, severe (8-10) Stop: 02/24/18 15:39 Last Admin: 02/24/18 05:29 Dose: 2 tab Sodium Chloride (Sodium Chloride Tab) 1 gm PO DAILY [facility] Last Admin: 02/24/18 10:09 Dose: 1 gm Thiamine HCl (Vitamin B1 Tab) 100 mg PO DAILY [facility] Last Admin: 02/24/18 10:09 Dose: 100 mg Trimethobenzamide HCl (Tigan) 200 mg IM Q8 PRN PRN Reason: Nausea/Vomiting - Labs Labs: 02/23/18 05:55 02/23/18 05:55 PT 11.2 Seconds (9.8-13.1) 02/18/18 04:25 INR 1.0 (0.9-1.2) 02/18/18 04:25 - Constitutional Appears: Non-toxic, No Acute Distress - Head Exam Head Exam: ATRAUMATIC, NORMOCEPHALIC - Eye Exam Eye Exam: EOMI, Normal appearance, PERRL Pupil Exam: NORMAL ACCOMODATION - ENT Exam ENT Exam: Mucous Membranes Moist, Normal Oropharynx - Neck Exam Neck Exam: Full ROM, Normal Inspection - Cardiovascular Exam Cardiovascular Exam: RRR, +S1, +S2 - GI/Abdominal Exam GI & Abdominal Exam: Soft, Normal Bowel Sounds. absent: Tenderness, Organomegaly - Extremities Exam Extremities Exam: Full ROM, Normal Capillary Refill - Back Exam Back Exam: absent: CVA tenderness (L), CVA tenderness (R) - Neurological Exam Neurological Exam: Alert, Awake - Psychiatric Exam Psychiatric exam: Normal Affect, Normal Mood - Skin Skin Exam: Dry, Normal Color Assessment and Plan - Assessment and Plan (Free Text) Plan: 58 y/o male with PMH of EtOH abuse,seizure, HTN, and HLD brought to the ER after multiple falls and being found down in his apartment. He was in hospital just recently admitted on 02/04 for EtOH intoxication with seizures. In the hospital, he appeared to have several episodes of syncope/ seizures, and he was eventually started on depakote. He was discharged home in stable condition. Again he is brought to ER with ingestion of a large amount of EtOH and found down in his apt sitting in his feces Ct hip showed Acute comminuted nondisplaced left intertrochanteric fracture He was started on IVF , MVI, thiamine, Folic acid and seizure precautions. Ortho was consulted . Had Closed Reduction and Internal Fixation of left hip on 02/18. Patient stable for discharge to [facility]. Awaiting auth. To also complete 5 more days of Cipro for UTI. 1.Acute comminuted nondisplaced left intertrochanteric fracture s/p Reduction and Internal Fixation Ortho following pt pain is controlled Wound with georgie healing well Fall precautions DVT prophylaxis with Lovenox plan for d/c to [facility] after insurance approval Continue Pt while in house 2.Rhabdomyolysis secondary to falls improved with IVF d/c IVF CPK trended down 3. Hyponatremia/ Hypochloremia most likely SIADH from stress of surgery, volume depletion, and low solute intake and also noticed polydipsia Na 132 today continue Fluid restriction 1.2 L / day on Salt Tablets 4.EtOH abuse/intoxication no signs of withdrawals or tremors Continue Thiamine, Folic acid ,MVi ETOH levels were elevated on admission Withdrawal/ seizure precautions 5.EtOH w/ hx seizures Continue depakote 500 BID PRN ativan 6. Hypertension BP controlled Continue metoprolol and Norvasc cardiology consulted for preop clearance Echo showed normal EF and wall motion 7. Pancreas mass found on CT previously pt was seen by GI - likely Pancreatic cyst due to ETOH abuse - ff up with GI as outpt 8. Mild Dementia likely sec to ETOH confused at times but easily redirected 9. Anemia, chronic monitor stable Hgb 9.2 on ferrous sulfate 10. Leukocytosis Most likely reactive Monitor for now CXR - clear , UA -- trace LE ,WBC 17 , few bacteria. Send urine cx bactrim Po promote use of incentive spirometry 11. Dry SKin , bucky on LE Lac Hydrin lotion 12. DVT PPx SCDs Lovenox
--- NOTE | 2018-02-24 14:26 | CP.PCM.DIS ---
Provider - Provider Date of Admission: 02/16/18 00:31 Attending physician: Dalia Freitas MD Time Spent in preparation of Discharge (in minutes): 30 Diagnosis - Discharge Diagnosis (1) Closed intertrochanteric fracture of left hip Status: Acute (2) ETOH abuse Status: Acute (3) Falls Status: Acute (4) Fracture of left hip Status: Acute (5) Intertrochanteric fracture of right hip Status: Acute Hospital Course - Lab Results Lab Results: Micro Results 02/22/18 08:44 Urine Urine Culture - Final No Growth (<1,000 CFU/ML) Most Recent Lab Values WBC 12.6 K/uL (4.8-10.8) H 02/23/18 05:55 RBC 2.88 Mil/uL (4.40-5.90) L 02/23/18 05:55 Hgb 8.8 g/dL (12.0-18.0) L 02/23/18 05:55 Hct 25.9 % (35.0-51.0) L 02/23/18 05:55 MCV 90.1 fl (80.0-94.0) 02/23/18 05:55 MCH 30.5 pg (27.0-31.0) 02/23/18 05:55 MCHC 33.8 g/dL (33.0-37.0) 02/23/18 05:55 RDW 15.2 % (11.5-14.5) H 02/23/18 05:55 Plt Count 480 K/uL (130-400) H 02/23/18 05:55 MPV 6.6 fl (7.2-11.7) L 02/18/18 04:25 Neut % (Auto) 68.4 % (50.0-75.0) 02/18/18 04:25 Lymph % (Auto) 13.1 % (20.0-40.0) L 02/18/18 04:25 [place] % (Auto) 10.3 % (0.0-10.0) H 02/18/18 04:25 Eos % (Auto) 6.8 % (0.0-4.0) H 02/18/18 04:25 Baso % (Auto) 1.4 % (0.0-2.0) 02/18/18 04:25 Neut # (Auto) 6.4 K/uL (1.8-7.0) 02/18/18 04:25 Lymph # (Auto) 1.2 K/uL (1.0-4.3) 02/18/18 04:25 [place] # (Auto) 1.0 K/uL (0.0-0.8) H 02/18/18 04:25 Eos # (Auto) 0.6 K/uL (0.0-0.7) 02/18/18 04:25 Baso # (Auto) 0.1 K/uL (0.0-0.2) 02/18/18 04:25 PT 11.2 Seconds (9.8-13.1) 02/18/18 04:25 INR 1.0 (0.9-1.2) 02/18/18 04:25 Sodium 130 mmol/l (132-148) L 02/23/18 05:55 Potassium 3.9 MMOL/L (3.6-5.0) 02/23/18 05:55 Chloride 92 mmol/L (98-107) L 02/23/18 05:55 Carbon Dioxide 24 mmol/L (22-30) 02/23/18 05:55 Anion Gap 18 (10-20) 02/23/18 05:55 BUN 4 mg/dl (9-20) L 02/23/18 05:55 Creatinine 0.7 mg/dl (0.8-1.5) L 02/23/18 05:55 Est GFR ( Amer) > 60 02/23/18 05:55 Est GFR (Non-Af Amer) > 60 02/23/18 05:55 POC Glucose (mg/dL) 116 mg/dL (65-110) H 02/19/18 11:03 Random Glucose 136 mg/dL (75-110) H 02/23/18 05:55 Serum Osmolality 262 mosm/kg (272-300) L 02/19/18 07:41 Lactic Acid 2.4 MMOL/L (0.7-2.1) H 02/15/18 22:40 Calcium 8.8 mg/dL (8.4-10.2) 02/23/18 05:55 Magnesium 2.1 MG/DL (1.6-2.3) 02/15/18 22:40 Total Bilirubin 0.3 mg/dl (0.2-1.3) 02/15/18 22:40 AST 41 U/L (17-59) 02/15/18 22:40 ALT 34 U/L (21-72) 02/15/18 22:40 Alkaline Phosphatase 90 U/L (38-126) 02/15/18 22:40 Total Creatine Kinase 280 U/L (55-170) H 02/19/18 15:37 Total Protein 7.6 G/DL (6.3-8.2) 02/15/18 22:40 Albumin 3.3 g/dL (3.5-5.0) L 02/15/18 22:40 Globulin 4.3 gm/dL (2.2-3.9) H 02/15/18 22:40 Albumin/Globulin Ratio 0.8 (1.0-2.1) L 02/15/18 22:40 Prolactin 6.6 ng/mL (3.7-17.9) 02/15/18 22:40 Urine Color Yellow (YELLOW) 02/21/18 21:08 Urine Clarity Slighty-cloudy (Clear) 02/21/18 21:08 Urine pH 5.0 (5.0-8.0) 02/21/18 21:08 Ur Specific [place] 1.010 (1.003-1.030) 02/21/18 21:08 Urine Protein Negative mg/dL (NEGATIVE) 02/21/18 21:08 Urine Glucose (UA) Neg mg/dL (Normal) 02/21/18 21:08 Urine Ketones Negative mg/dL (NEGATIVE) 02/21/18 21:08 Urine Blood Negative (NEGATIVE) 02/21/18 21:08 Urine Nitrate Negative (NEGATIVE) 02/21/18 21:08 Urine Bilirubin Negative (NEGATIVE) 02/21/18 21:08 Urine Urobilinogen 0.2-1.0 mg/dL (0.2-1.0) 02/21/18 21:08 Ur Leukocyte Esterase Trace Tia/uL (Negative) 02/21/18 21:08 Urine RBC (Auto) 1 /hpf (0-3) 02/21/18 21:08 Urine Microscopic WBC 17 /hpf (0-5) H 02/21/18 21:08 Ur Squamous Epith Cells < 1 /hpf (0-5) 02/21/18 21:08 Urine Bacteria Rare (<OCC) 02/21/18 21:08 Urine Osmolality 392 mosm/kg (300-1000) 02/19/18 09:51 Urine Opiates Screen Negative (NEGATIVE) 02/15/18 21:35 Urine Methadone Screen Negative (NEGATIVE) 02/15/18 21:35 Ur Barbiturates Screen Negative (NEGATIVE) 02/15/18 21:35 Ur Phencyclidine Scrn Negative (NEGATIVE) 02/15/18 21:35 Ur Amphetamines Screen Negative (NEGATIVE) 02/15/18 21:35 U Benzodiazepines Scrn Positive (NEGATIVE) 02/15/18 21:35 U Oth Cocaine Metabols Negative (NEGATIVE) 02/15/18 21:35 U Cannabinoids Screen Negative (NEGATIVE) 02/15/18 21:35 Alcohol, Quantitative < 10 mg/dl (0-10) 02/16/18 07:50 Blood Type A NEGATIVE 02/17/18 09:57 Blood Type Confirm A NEGATIVE 02/17/18 10:12 Antibody Screen Negative 02/17/18 09:57 BBK History Checked No verified bt 02/17/18 09:57 - Hospital Course Hospital Course: 58 y/o male with PMH of EtOH abuse,seizure, HTN, and HLD brought to the ER after multiple falls and being found down in his apartment. He was in hospital just recently admitted on 02/04 for EtOH intoxication with seizures. In the hospital, he appeared to have several episodes of syncope/ seizures, and he was eventually started on depakote. He was discharged home in stable condition. Again he is brought to ER with ingestion of a large amount of EtOH and found down in his apt sitting in his feces Ct hip showed Acute comminuted nondisplaced left intertrochanteric fracture He was started on IVF , MVI, thiamine, Folic acid and seizure precautions. Ortho was consulted . Had Closed Reduction and Internal Fixation of left hip on 02/18. Patient stable for discharge to [facility]. To also complete 5 more days of Cipro for UTI. 1.Acute comminuted nondisplaced left intertrochanteric fracture s/p Reduction and Internal Fixation Ortho following pt pain is controlled Wound with georgie healing well Fall precautions DVT prophylaxis with Lovenox plan for d/c to [facility] after insurance approval Continue Pt 2.Rhabdomyolysis secondary to falls improved with IVF d/c IVF CPK trended down 3. Hyponatremia/ Hypochloremia most likely SIADH from stress of surgery, volume depletion, and low solute intake and also noticed polydipsia Na 132 today continue Fluid restriction 1.2 L / day on Salt Tablets 4.EtOH abuse/intoxication no signs of withdrawals or tremors Continue Thiamine, Folic acid ,MVi ETOH levels were elevated on admission Withdrawal/ seizure precautions 5.EtOH w/ hx seizures Continue depakote 500 BID PRN ativan 6. Hypertension BP controlled Continue metoprolol and Norvasc cardiology consulted for preop clearance Echo showed normal EF and wall motion 7. Pancreas mass found on CT previously pt was seen by GI - likely Pancreatic cyst due to ETOH abuse - ff up with GI as outpt 8. Mild Dementia likely sec to ETOH confused at times but easily redirected 9. Anemia, chronic monitor stable Hgb 9.2 on ferrous sulfate 10. Leukocytosis Most likely reactive Monitor for now CXR - clear , uti bactrim Po promote use of incentive spirometry 11. Dry SKin , bucky on LE Lac Hydrin lotion 12. DVT PPx SCDs Lovenox Discharge Exam - Head Exam Head Exam: ATRAUMATIC, NORMOCEPHALIC - Eye Exam Eye Exam: EOMI, Normal appearance - ENT Exam ENT Exam: Mucous Membranes Moist, Normal Oropharynx - Neck Exam Neck exam: Full Rom, Normal Inspection - Respiratory Exam Respiratory Exam: Clear to PA & Lateral, NORMAL BREATHING PATTERN - Cardiovascular Exam Cardiovascular Exam: RRR, +S1, +S2 - GI/Abdominal Exam GI & Abdominal Exam: Normal Bowel Sounds, Soft. absent: Mass, Tenderness - Extremities Exam Extremities exam: normal capillary refill, pedal pulses present - Back Exam Back exam: absent: CVA tenderness (L), CVA tenderness (R) - Neurological Exam Neurological exam: Alert, Oriented x3 - Psychiatric Exam Psychiatric exam: Normal Affect, Normal Mood - Skin Skin Exam: Dry, Warm Discharge Plan - Follow Up Plan Condition: FAIR Disposition: TRANSF TO SNF Instructions: Alcohol Abuse and Alcoholism (DC) Referrals: Torey Butts [Family Provider] - Molly Rowland MD [Staff Provider] -
[2018-02-24 15:54] VITALS: BP 129/77; PULSE 90; TEMP 99.2; O2SAT 99
--- NOTE | 2018-03-05 07:38 | OP ---
PROCEDURE DATE: 02/18/2018 PREOPERATIVE DIAGNOSIS: Left hip minimally displaced intertrochanteric hip fracture. POSTOPERATIVE DIAGNOSIS: Left hip minimally displaced intertrochanteric hip fracture. PROCEDURE: Left hip intertrochanteric hip fracture, closed reduction and internal fixation with long hip nail. SURGEON: Molly Palma MD SPEECH THERAPY DIRECTOR: Haylie Romero, certified medical biller. Haylie Romero is a certified nurse first assistance whose presence was an absolute necessity for successful completion of the procedure, supervised skilled surgical assistance with positioning of the patient, positioning of extremity, managing the surgical field, facilitating closed reduction, placement of internal fixation hardware and securing internal fixation hardware, surgical approach, maintaining anatomic fracture reduction, wound closure, and transport of the patient safely from the fracture top table to his bed. Haylie Romero was present for the entire case and was an absolute necessity for successful completion of the procedure. SPECIMEN: None. COMPLICATIONS: None. TYPE OF ANESTHESIA: General endotracheal anesthesia with postop regional nerve block placed by anesthesia staff in PACU. ESTIMATED BLOOD LOSS: 50 mL. DRAINS: None. IMPLANTS: Synthes long TFNA 410 mm length, 11 mm diameter, 100 mm length helical blade, and 2 distal interlocking screws. DISPOSITION: The patient was extubated and safely transferred back to his bed and from there transferred back to the PACU in stable condition and tolerated the procedure well. INDICATIONS FOR SURGERY: The patient is a 58-year-old male with a past medical history significant for hypertension, hyperlipidemia, and alcohol abuse who presented to the emergency room at [facility] on 02/16/2018 with left hip pain and inability to weight bear on left lower extremity for one day. As stated before, the patient is a known alcoholic with multiple ER visits. He stated that on the evening of 02/15/2018, he passed out after binge drinking. He is a poor historian. He does not recall exactly how it happened, but he states that he woke up with severe left hip pain and inability to ambulate. He was found down in his apartment and EMS was called. He was brought to the emergency room at [facility] via EMS and after evaluation by ER staff and reviewed imaging, he was diagnosed with a minimally displaced left hip intertrochanteric hip fracture. He was admitted to the medical service under the hospitalist and an orthopedic consultation was placed. He also has a medical history of seizure disorder and had a recent admission to the [facility] on 02/04/2018 after being found in a postictal state by EMS. I evaluated the patient as an inpatient on 02/17/2018. He was also evaluated by the orthopedic PA, . We had multiple discussions with the patient explaining his treatment options after reviewing his CAT scan and his x-rays with him. He was indicated for left hip close versus open reduction and internal fixation with a long hip nail. Despite the fracture pattern that would be amenable to a short hip nail due to the patient's multiple seizure activity and seizure disorder as well as alcoholism and multiple episodes of loosing consciousness and falling, we were in agreement that a long hip nail would better protect him for future falls as opposed to fracturing at the tip of the short nail potentially. The medical service provided us with medical optimization and the patient was taken to the OR on 02/18/2018. DESCRIPTION OF PROCEDURE: The patient was identified in the preoperative holding area and the left hip was marked for surgery. I had a long discussion with the patient again reviewing the risks, benefits, and alternatives to surgery with the risk include, but not limited to infection, neurovascular damage, malunion, nonunion, failure of hardware, inability to return to preinjury level of activity and ambulation, development of blood clots including DVT and PE, development of chronic pain and disability, iatrogenic injury, and need for future surgery. After answering all of his questions, the patient stated that he understood the risks and wished to proceed with surgery. Informed consent was obtained and after brief discussion with anesthesia staff, perioperative IV antibiotic in the form of 2 g Ancef was administered and the patient was taken to the operating room on his hospital bed. An initial time-out was done with the surgeon, anesthesia staff, OR staff, all in agreement with the patient, procedure being done, and extremity being operated on. General anesthesia was administered without difficulty or complications. The patient was then carefully transferred with the help of my clinic assistant to the fracture top over side table. The patient was then brought down to the perineal post and preparation for the application of traction to the left lower extremity. The right upper extremity was placed in a well padded armboard and secured. The left upper extremity was well padded to protect the neurovascular structures most importantly the ulnar nerve and with the egg-crate padding secured across his chest away from the surgical field. The left lower extremity was well padded at the foot and ankle and placed in the traction boot and secured. The right lower extremity was well padded and secured to the low leg flowers in the flexion and abduction position to allow for fluoroscopic intraoperative x-ray imaging. Once final positioning was carried out biplanar fluoroscopic and dynamic fluoroscopic imaging was employed. A final time-out was done with the surgeon, anesthesia staff, and OR staff, all are in agreement with the patient, procedure being done, and extremity being operated on. With the help of dynamic and biplanar fluoroscopic imaging, a closed reduction and optimal positioning of the left lower extremity was carried out. With the fracture pattern being minimally displaced, anatomic closed reduction was not difficult to obtain. We had confirmation on biplanar and dynamic fluoroscopic imaging of an anatomic reduction of the left hip intertrochanteric fracture. The left hip was prepped and draped in a standard sterile fashion. A guidewire was used percutaneously and advanced to determine optimal placement for the incision as well as the entry point for the long hip nail. Once the optimal position for the entry point was identified with the percutaneous placement of the guidewire, an incision was made 3 cm extending proximally from the entry point of the guidewire to allow full access and placement of the reamers as well as the hip nail. Incision was made to skin down to subcutaneous tissue and maintaining good hemostasis down to the iliotibial fascia. The fascia was sharply incised and with digit palpation in the tip of the greater trochanter was identified. With the use of biplanar fluoroscopic imaging, center-center position of the entry point of the guidewire was confirmed at the tip of the greater trochanter. The guidewire was advanced to the level of the lesser trochanter. The proximal reamer with the soft tissue protected was then advanced over the guidewire to ream out the entry point for the nail. Once this was carried under fluoroscopic imaging to satisfaction in optimal position, the initial guidewire and the proximal reamer were removed. A flexible ball-tip guidewire was then advanced until was at the superior pole of the patella. Length of the guidewire for placement of the appropriately length nail was then carried out and selected. A 400 mm length nail was selected. The 400 mm length nail would be an optimal length to have the tip of the nail and at the superior pole of the patella. Biplanar fluoroscopic imaging was also taken to confirm that the ball tip of the guidewire was not too close to the anterior cortex resulting a possible iatrogenic injury to the anterior cortex of the distal femoral shaft. Once the measurement was taken, the flexible reamers were then passed over the guidewire and the reamer sizes were sequentially increased until they reached a 13-mm reamer to allow for easy placement of an 11-mm nail. The 11-mm diameter, 400-mm length long TFNA nail from [employer] was then advanced over the ball-tip guidewire until it was well seated with the for the helical blade in a good position with placement of the femoral head and neck and the tip of the nail confirmed to be at the superior pole of the patella. Once the long TFNA nail was in good position, the triple sleeve cannula was assembled and through the external guidance system attached to the tip of the nail, optimal placement for the helical blade was identified. A small incision was made through the skin down to the subcutaneous tissue down to the level of iliotibial fascia through the fascia up to the lateral cortex of the proximal femur. Guidewire was advanced to the tip of the sleeve guide and confirmed on biplanar fluoroscopic imaging to be center-center on the head with good tip to apex distance established and slight inferior placement along the stronger bone of the inferior aspect of the femoral neck. A measurement was taken with the good tip to apex distance established and 105 mm helical blade was measured and placed after the cannulated drill was advanced over the guidewire. The helical blade was placed with good length established and good tip to apex distance maintain for the subchondral bone of the femoral head with good placement along the femoral head and neck. Once the helical blade was in good position, the facet screw was advanced and turned a half turn counterclockwise to allow for compression of the helical blade and the nail. The compression was applied and we were satisfied with our positioning. At that point in time, we turned our attention to placement of the distal interlocking screws. With the use of perfect [place] technique, optimal points for the laterally based stab incision at the level of the distal screw holes or the distal interlocking screws of the nail were identified. Perfect [place] technique was employed and both the proximal static distal interlocking screw hole and the dynamic distal interlocking screw hole were drilled bicortically with dynamic fluoroscopy used to confirm that the drill pads was indeed through the nails in both instances. Once the drills were placed bicortically, the length was taken and two distal interlocking screws were placed, 5 mm diameter, 50 mm length for the proximal screw, and 52 mm length for the distal screw. Once these screws were in good position with good bite achieved and biplanar fluoroscopic imaging confirming that these screws were bicortical indeed with good length and placed appropriately through the nail. Then, final fluoroscopic imaging was taking showing maintenance of an anatomic fracture reduction and good placement of hardware overall. All the wounds were copiously irrigated and deep tissue and fascia were reapproximated with #1 Vicryl suture followed by 2-0 Vicryl suture for subcutaneous tissue followed by georgie for skin. Sterile dressings were applied and the patient was then carefully transferred back from the fracture top table to his bed. At that point, he was extubated and transferred back to PACU in stable condition and tolerated the procedure well. DISPOSITION: The patient will remain as an inpatient for approximately 24 to 48 hours depending on medical clearance. Once he is optimized for discharge, case management, social work msw, and physical therapy will work on optimal placement in a rehab facility. I will monitor his progress as an inpatient. Once he is discharged, he will follow up in my office within one week. As now, the patient for radiographic and clinical followup. He will be started on DVT prophylaxis in the form of Lovenox 40 mg once daily on postoperative day #1 and received adequate pain control. Molly Palma MD
== END 2018-02-24 17:50 | DRG 481 ==
LOC: H.ER 20:42 → H.ERHOLD 02-16 00:31 → H.TEL 02-16 11:29 → H.MEDSURG1 02-21 23:41
PROVIDERS: ADMIT Internal Medicine; ATTEND Internal Medicine
PROC: 3E0T3BZ Introduction of Anesthetic Agent into Peripheral Nerves and Plexi, Percutaneous Approach (ICD-10-PCS; principal; 2018-02-18 07:45)
PROC: 0QS734Z Reposition Left Upper Femur with Internal Fixation Device, Percutaneous Approach (ICD-10-PCS; 2018-02-18 07:45)
DX: S72.142A Displaced intertrochanteric fracture of left femur, initial encounter for closed fracture (principal); M62.82 Rhabdomyolysis; N39.0 Urinary tract infection, site not specified; E22.2 Syndrome of inappropriate secretion of antidiuretic hormone; K86.2 Cyst of pancreas; D64.9 Anemia, unspecified; E78.5 Hyperlipidemia, unspecified; E87.8 Other disorders of electrolyte and fluid balance, not elsewhere classified; I10 Essential (primary) hypertension; R29.6 Repeated falls; Z91.14 Patient's other noncompliance with medication regimen; Y90.5 Blood alcohol level of 100-119 mg/100 ml; R56.9 Unspecified convulsions; Z91.19 Patient's noncompliance with other medical treatment and regimen; F10.129 Alcohol abuse with intoxication, unspecified; F10.97 Alcohol use, unspecified with alcohol-induced persisting dementia; Z72.0 Tobacco use; L98.8 Other specified disorders of the skin and subcutaneous tissue; E86.0 Dehydration; W01.0XXA Fall on same level from slipping, tripping and stumbling without subsequent striking against object, initial encounter; Y92.039 Unspecified place in apartment as the place of occurrence of the external cause; G40.909 Epilepsy, unspecified, not intractable, without status epilepticus

== ENCOUNTER 2018-11-24 09:19 | Day surgery (SDC) | payer MEDICARE, OTHER ==
[2018-11-16 11:35] VITALS: RESP 18; O2SAT 100
[2018-11-24] MEDS ORDERED: EPINEPHrine 1 mg/ml (1:1000) Inj ONE (09:27)
[2018-11-24] MEDS ORDERED: Maxitrol Opht Susp ONE (09:27)
[2018-11-24] MEDS ORDERED: Tetracaine 0.5% Ophth 2 ML BOTTLE ONE (09:27)
[2018-11-24] MEDS ORDERED: CA CL/K CL/NA CL 500 ML IR ONE (09:28)
[2018-11-24] MEDS ORDERED: Lidocaine 1% 20 MG/2 ML PF AMP ONE (09:28)
[2018-11-24] MEDS ORDERED: Pilocarpine 1% Opht Soln ONE (09:28)
[2018-11-24] MEDS ORDERED: STERILE IRRIGATING SOLUTION 45 ML IR ONE (09:28)
[2018-11-24] MEDS ORDERED: Povidone Iodine 5% Opht SOLUTION ONE (09:29)
[2018-11-24] MEDS ORDERED: Chondroitin/Hyaluronate Opth Syringe KIT (0.55 ml-0.5 ml) IO ONE ×2 (09:29→12:19)
[2018-11-24] MEDS ORDERED: Carbachol 0.01% IO ONE ×3 (09:29→12:23)
[2018-11-24] MEDS ORDERED: Tropicamide 1% Opht 150 DROP/15 ML OS ONE (09:45)
[2018-11-24] MEDS ORDERED: Flurbiprofen 0.03% Opht SOLN OS ONE (09:45)
[2018-11-24] MEDS ORDERED: Phenylephrine 2.5% Opht Soln OS ONE (09:45)
[2018-11-24] MEDS ORDERED: Phenylephrine 2.5% Opht Soln OS SCH (10:00)
[2018-11-24] MEDS ORDERED: Tropicamide 1% Opht 150 DROP/15 ML OS SCH (10:00)
[2018-11-24] MEDS ORDERED: Flurbiprofen 0.03% Opht SOLN OS SCH (10:00)
[2018-11-24] MEDS ORDERED: Lactated Ringer's 1,000 ML IV ONE (12:02)
[2018-11-24] MEDS ORDERED: Pilocarpine 1% Opht Soln OS ONE ×2 (12:22→12:25)
[2018-11-24] MEDS ORDERED: Maxitrol Opht Susp OS ONE ×2 (12:22→12:27)
[2018-11-24] MEDS ORDERED: BSS 15 ML SOL IR ONE (12:23)
[2018-11-24 13:05] VITALS: BMI 25.0
[2018-11-24 13:45] VITALS: BP 138/78; PULSE 99; TEMP 98
--- NOTE | 2018-11-24 18:59 | CARD ---
APPROVED REPORT Date of service: 11/24/2018 EKG Measurement Heart [id number] <Conclusion> Normal sinus rhythm Normal ECG
--- NOTE | 2018-11-25 07:57 | OP ---
PROCEDURE DATE: 11/24/2018 SURGEON: ALLY WARREN MD ANESTHESIOLOGIST: VILMA BAUTISTA MD ANESTHESIA: LOCAL / IV SEDATION PREOPERATIVE DIAGNOSIS: CATARACT LEFT EYE. POSTOPERATIVE DIAGNOSIS: CATARACT LEFT EYE. OPERATION: CLEAR CORNEAL PHACOEMULSIFICATION WITH LENS IMPLANT LEFT EYE. PREPARATION AND PROCEDURE: After the patient was prepped and draped in the usual manner for sterile ophthalmic surgery, local IV sedation was administered; eye seals were applied to the upper and lower lid margins and an adult wire lid speculum was placed within the lids. Under microsurgical control, a two-step clear corneal incision was made into the anterior chamber. The initial incision was perpendicular to the corneal plane. The second incision with the keratome was placed at a 45-degree angle to the first incision. One cc of one percent Xylocaine MPF was instilled into the anterior chamber to achieve proper intraocular anesthesia. At this time, the Viscoelastic was injected into the anterior chamber for protection of the endothelium and for maintenance of the chamber depth. A 360-degree continuous curvilinear capsulorrhexis was performed using a pre-bent 25-gauge needle. Hydrodissection and hydrodelineation were performed using a Richey cannula and balanced salt solution. Utilizing the tip of the Richey cannula, the nucleus was rotated freely within the capsular bag. A standard one-handed phacoemulsification was utilized at this time for sculpting and rotating of the nucleus. The nucleus was fragmented in its entirety and aspirated without any consequence. A standard I&A was carried out for the residual cortical material. No residual material was noted within the capsular bag. The posterior capsule was noted to be clear. Additional Viscoelastic was injected into the capsular bag in preparation for lens implantation. After this has been satisfactorily achieved the intraocular lens injected through the corneal incision into the capsular bag. The intraocular lens was manipulated until it was properly oriented and the Viscoelastic was evacuated from the capsular bag and anterior chamber. The anterior chamber was reformed with balanced salt solution. The corneal incision was irrigated with BSS. The intraocular pressure was found to be within normal limits. This terminated the procedure. The speculum and lid drapes were removed. TobraDex ophthalmic suspension and Pilocarpine 1% drops one drop was applied to the eye. POSTOPERATIVE CONDITION: The patient was brought to the Post anesthesia Recovery area with stable vital signs. DALLY BASURTO MD
== END 2018-11-24 14:00 | disposition home or self-care (01) ==
LOC: H.OPSURG 09:19
PROVIDERS: ATTEND Ophthalmology
DX: H26.8 Other specified cataract (principal); J45.909 Unspecified asthma, uncomplicated; Z87.891 Personal history of nicotine dependence
CPT/HCPCS: 66984; 93005; J0171; J7120

== ENCOUNTER → 2018-12-08 | Day surgery (SDC) | payer MEDICARE, OTHER ==
[~2018-12-08] MED LIST: CA CL/K CL/NA CL 500 ML IR ONE; EPINEPHrine 1 mg/ml (1:1000) Inj ONE; Flurbiprofen 0.03% Opht SOLN OD ONE; Flurbiprofen 0.03% Opht SOLN OD SCH; Lactated Ringer's 1,000 ML IV ONE; Lactated Ringer's 1,000 ML IV SCH; Lidocaine 1% 20 MG/2 ML PF AMP ONE; Lidocaine 1% 5ml Abboject ONE; Midazolam 2 MG/2 ML VIAL ONE; Phenylephrine 2.5% Opht Soln OD ONE; Phenylephrine 2.5% Opht Soln OD SCH; Povidone Iodine 5% Opht SOLUTION ONE; Propofol 10 mg/ml Inj (20 ML) ONE; STERILE IRRIGATING SOLUTION 45 ML IR ONE; Tetracaine 0.5% Ophth 2 ML BOTTLE ONE; Tropicamide 1% Opht 150 DROP/15 ML OD ONE; Tropicamide 1% Opht 150 DROP/15 ML OD SCH
[2018-12-08 11:09] VITALS: BMI 24.3
[2018-12-08 11:13] VITALS: RESP 18
[2018-12-08] MEDS: Carbachol 0.01% IO ONE ×2 (13:34→13:45)
[2018-12-08] MEDS: Pilocarpine 1% Opht Soln ONE ×2 (13:36→13:50)
[2018-12-08] MEDS: Maxitrol Opht Susp ONE ×2 (13:36→13:50)
[2018-12-08 14:26] VITALS: BP 167/80; PULSE 71; TEMP 97.4; O2SAT 99
--- NOTE | 2018-12-09 07:14 | OP ---
PROCEDURE DATE: 12/08/2018 SURGEON: ALLY WARREN MD ANESTHESIOLOGIST: SASHA DUGAN MD ANESTHESIA: LOCAL / IV SEDATION PREOPERATIVE DIAGNOSIS: CATARACT RIGHT EYE. POSTOPERATIVE DIAGNOSIS: CATARACT RIGHT EYE. OPERATION: CLEAR CORNEAL PHACOEMULSIFICATION WITH LENS IMPLANT RIGHT EYE. PREPARATION AND PROCEDURE: After the patient was prepped and draped in the usual manner for sterile ophthalmic surgery, local IV sedation was administered; eye seals were applied to the upper and lower lid margins and an adult wire lid speculum was placed within the lids. Under microsurgical control, a two-step clear corneal incision was made into the anterior chamber. The initial incision was perpendicular to the corneal plane. The second incision with the keratome was placed at a 45-degree angle to the first incision. One cc of one percent Xylocaine MPF was instilled into the anterior chamber to achieve proper intraocular anesthesia. At this time, the Viscoelastic was injected into the anterior chamber for protection of the endothelium and for maintenance of the chamber depth. A 360-degree continuous curvilinear capsulorrhexis was performed using a pre-bent 25-gauge needle. Hydrodissection and hydrodelineation were performed using a Richey cannula and balanced salt solution. Utilizing the tip of the Richey cannula, the nucleus was rotated freely within the capsular bag. A standard one-handed phacoemulsification was utilized at this time for sculpting and rotating of the nucleus. The nucleus was fragmented in its entirety and aspirated without any consequence. A standard I&A was carried out for the residual cortical material. No residual material was noted within the capsular bag. The posterior capsule was noted to be clear. Additional Viscoelastic was injected into the capsular bag in preparation for lens implantation. After this has been satisfactorily achieved the intraocular lens injected through the corneal incision into the capsular bag. The intraocular lens was manipulated until it was properly oriented and the Viscoelastic was evacuated from the capsular bag and anterior chamber. The anterior chamber was reformed with balanced salt solution. The corneal incision was irrigated with BSS. The intraocular pressure was found to be within normal limits. This terminated the procedure. The speculum and lid drapes were removed. TobraDex ophthalmic suspension and Pilocarpine 1% drops one drop was applied to the eye. POSTOPERATIVE CONDITION: The patient was brought to the Post anesthesia Recovery area with stable vital signs. DALLY BASURTO MDD
== END | disposition home or self-care (01) ==
LOC: H.OPSURG 10:15
PROVIDERS: ATTEND Ophthalmology
DX: H25.811 Combined forms of age-related cataract, right eye (principal); J45.909 Unspecified asthma, uncomplicated; J44.9 Chronic obstructive pulmonary disease, unspecified; E11.9 Type 2 diabetes mellitus without complications; E78.5 Hyperlipidemia, unspecified; I10 Essential (primary) hypertension; G40.909 Epilepsy, unspecified, not intractable, without status epilepticus; F17.200 Nicotine dependence, unspecified, uncomplicated
CPT/HCPCS: 66984; J0171; J2250; J2704; J3010; J7120; V2632